=== PATIENT | male | born 1955 | race Caucasian/White ===

== ENCOUNTER → 2016-08-25 | Outpatient (CLI) | payer BC ==
--- NOTE | 2016-08-25 11:43 | ECHOF ---
Referral Reason:Murmur R01.1 MEASUREMENTS -------- HEIGHT: 182.9 cm WEIGHT: 113.4 kg BP: IVSd: 1.0 cm (0.6 - 1.1) LVIDd: 4.5 cm (3.9 - 5.3) LVPWd: 1.1 cm (0.6 - 1.1) IVSs: 1.5 cm LVIDs: 3.1 cm LVPWs: 1.7 cm Ao Diam: 2.8 cm (2.0 - 3.7) AV Cusp: 2.0 cm (1.5 - 2.6) LA Diam: 3.9 cm (2.7 - 3.8) MV EXCURSION: 18.395 mm (> 18.000) MV EF SLOPE: 105 mm/s (70 - 150) EPSS: 0.5 cm MV E Isael: 0.97 m/s MV DecT: 286 ms MV A Isael: 1.16 m/s MV E/A Ratio: 0.84 RAP: 5.00 mmHg RVSP: 15.84 mmHg FINDINGS -------- Sinus rhythm. This was a technically good study. Left ventricular wall thickness is normal. Overall left ventricular systolic function is normal with, an EF between 55 - 60 %. The right ventricle is normal in size and function. The left atrium is normal in size. The right atrium is normal in size. The aortic valve is trileaflet, and appears structurally normal. No aortic stenosis or regurgitation. The mitral valve leaflets are mildly thickened. Mild mitral regurgitation is present. Mild tricuspid regurgitation present. The right ventricular systolic pressure, as measured by Doppler, is 15.84mmHg. Pulmonic valve appears structurally normal. The aortic root, ascending aorta and aortic arch are normal. The pericardium is normal. CONCLUSIONS -------- 1. Sinus rhythm. 2. Mild mitral regurgitation is present. 3. Mild tricuspid regurgitation present. 4. The right ventricular systolic pressure, as measured by Doppler, is 15.84mmHg. 5. Pulmonic valve appears structurally normal. 6. The aortic root, ascending aorta and aortic arch are normal. 7. The pericardium is normal. 8. This was a technically good study. 9. Left ventricular wall thickness is normal. 10. Overall left ventricular systolic function is normal with, an EF between 55 - 60 %. 11. The right ventricle is normal in size and function. 12. The left atrium is normal in size. 13. The right atrium is normal in size. 14. The aortic valve is trileaflet, and appears structurally normal. No aortic stenosis or regurgitation. 15. The mitral valve leaflets are mildly thickened. [facility] ERP ARCHITECT: Chelsea Gallardo RDCS
== END | disposition home or self-care (01) ==
LOC: RADECHMAIN 11:18
PROVIDERS: ATTEND Family Medicine
DX: I08.1 Rheumatic disorders of both mitral and tricuspid valves (principal)
CPT/HCPCS: 93306

== ENCOUNTER → 2018-12-16 | Outpatient (CLI) | payer BC ==
--- NOTE | 2018-12-16 11:41 | CT ---
"EXAMINATION TYPE: CT chest w con DATE OF EXAM: 12/16/2018 COMPARISON: No prior studies at this location. HISTORY: Pneumonia CT DLP: 731 mGycm, Automated exposure control for dose reduction was used. CONTRAST: Performed injected with 100 mL of Isovue 300. TECHNIQUE: Axial images were obtained at 5 mm thick sections. Reconstructed images are reviewed on [employer] computer in the coronal plane. FINDINGS: Left lobe thyroid is enlarged with hypodense areas. This could be evaluated with ultrasound . This is displacing the trachea towards the right. There is a large anterior mediastinal mass just superior to the main pulmonary artery. The mass measu res 7.5 x 6.8 cm in size. This has irregular lobular borders with central hypodensity suspicious for a neoplastic process. Consider lymphoma and thymoma within the differential. Metastatic disease shoul d be considered. There is a markedly enlarged right axillary lymph node measuring 10.0 x 8.9 cm. There is a 1.4 cm lym ph node in the left axillary region. Small pericardial effusion is evident. Small left pleural effusion is present. The ascending aorta diameter at the level of the main pulmonary artery is 3.4 cm. The main pulmonary artery diameter at the bifurcation is 3.[address] sections are obtained through the upper abdomen. Abdomen is essentially unremarkable. IMPRESSIONS: 1. Markedly enlarged right axillary lymph node. Irregular lobulated mass within the anterior mediasti num. Metastatic disease should be considered. Lymphoma should be considered. 2. Small pericardial effusion. 3. Small left pleural effusion. A [place] level critical message alert has been initiated for Bob Mcneill MD via the [employer] 60 | Critical Results System on 12/16/2018 11:38 AM. This message alert has been sent to Bob le MD via the preferences provided by the clinician for the receipt of Radiology Critical Findings. M essage ID [id number]."
[2018-12-16 16:24] LABS: Basophils % (A) 0 %; Eosinophils # (A) 0.1 k/uL (0-0.7); Eosinophils % (A) 1 %; HCT 38.7 % (39.0-53.0); HGB 12.4 gm/dL (13.0-17.5); Lymphocytes # (A) 0.7 k/uL (1.0-4.8); Lymphocytes % (A) 9 %; MCH 28.8 pg (25.0-35.0); MCV 89.8 fL (80.0-100.0); Mean Platelet Volume 7.4; Monocytes # (A) 0.3 k/uL (0-1.0); Monocytes % (A) 4 %; Neutrophils # (A) 7.1 k/uL (1.3-7.7); Neutrophils % (A) 85 %; Platelet Count 365 k/uL (150-450); RBC 4.31 m/uL (4.30-5.90); RDW 13.8 % (11.5-15.5); WBC 8.3 k/uL (3.8-10.6)
[2018-12-16 16:33] LABS: ALT 20 U/L (21-72); AST 35 U/L (17-59); Albumin 3.7 g/dL (3.5-5.0); Alkaline Phosphatase 96 U/L (38-126); Anion Gap 9 mmol/L; Blood Urea Nitrogen 17 mg/dL (9-20); Calcium 9.4 mg/dL (8.4-10.2); Carbon Dioxide 24 mmol/L (22-30); Chloride 107 mmol/L (98-107); Glucose 140 mg/dL (74-99); Potassium 4.1 mmol/L (3.5-5.1); Sodium 140 mmol/L (137-145); Total Bilirubin 0.5 mg/dL (0.2-1.3); Total Protein 6.6 g/dL (6.3-8.2)
[2018-12-16 16:49] LABS: T4, Free (Free Thyroxine) 1.61 ng/dL (0.78-2.19)
== END ==
LOC: RADCTMAIN 07:05
PROVIDERS: ATTEND Family Medicine
DX: R05 Cough (principal); R91.8 Other nonspecific abnormal finding of lung field; R59.0 Localized enlarged lymph nodes; I31.3 Pericardial effusion (noninflammatory)
CPT/HCPCS: 84439; 80053; 84443; 85025; 71260; Q9967

== ENCOUNTER → 2018-12-18 | Outpatient (CLI) | payer BC ==
--- NOTE | 2018-12-20 07:59 | PE ---
EXAMINATION TYPE: PET CT fusion whole body DATE OF EXAM: 12/18/2018 COMPARISON: Chest CT December 16, 2018. HISTORY: Melanoma of back progress study after surgery 2009. TECHNIQUE: Following the intravenous administration of 14.17 mCi of F-18 FDG, whole body images are performed from the top of skull to the bottom of feet. Images are reviewed on the computer in the co margi, axial, and sagittal planes. Reconstructed rotating images are created on independent workstat ion and reviewed on the computer. A noncontrast CT is performed in conjunction with the PET scan. SCAN: Subsequent Scan FINDINGS: MEDIASTINUM MEAN SUV: 0.8 LIVER MEAN SUV: 2.29 HEAD AND NECK: No hypermetabolic soft tissue nodules are identified in the head. There is a large hypermetabolic right supraclavicular mass measuring 4.1 x 3.4 cm at level of thyroid gland axial image 103, max SUV is 12.3s. CHEST, MEDIASTINUM, AND HILAR REGION: There is hypermetabolic right axillary mass measuring 16.7 x 7. 2 cm axial image 129 with max SUV of 15.99. There are multiple mediastinal hypermetabolic masses, largest anterior to main pulmonary artery measu res approximately 7.7 x 6.1 cm axial image 133, max SUV is 19.48. There is hypermetabolic left axillary mass measuring 1.6 x 1.5 cm axial image 130, max SUV is 10.37. There is posterior lower thoracic subcutaneous 1.1 cm hypermetabolic mass axial image 150, max SUV is 9.33. ABDOMEN AND PELVIS: There are multiple areas of abnormal hypermetabolic masses throughout the abdomen and pelvis. One of the larger lesions right lower quadrant abuts bowel measuring 5.4 x 4.6 cm axial image 248, ma x SUV is 19.16. Another lesion for reference in the left upper quadrant measures 4.2 x 3.4 cm axial i mage 215, max SUV is 17.39. There is necrotic lesion with air-fluid level suggesting abscess centrally in the mid to lower abdome n axial image 238 which is contiguous with bowel. Max SUV is 32.49. OSSEOUS STRUCTURES: Osseous metastatic disease is present, there is left femoral intramedullary mid t o distal diaphysis lesion axial image 19 with max SUV of 7.94. EXTREMITIES: Suspicious hypermetabolic focus left elbow level is seen on MIP images. OTHER CT: There is ametabolic but suspicious 5.2 cm left thyroid nodule axial image 103. There is small left pleural effusion. Mild cardiomegaly is present. There is small to borderline mode rate sized pericardial effusion. There is facet arthropathy and the lower lumbar spine. There is multilevel spurring in the spine. There is 1.8 cm partially calcified skin-based lesion anterior left upper leg axial image 21 presumed dermatologic and benign in etiology. IMPRESSION: Diffuse metastatic disease is present. Large suspicious left thyroid nodule. Intra-abdomi nal abscess contiguous with bowel noted. A [place] level critical message alert has been initiated for Boone Chase DO~[id number] via the [employer] Critical Results System on 12/20/2018 7:57 AM. This message alert has been sent to Boone Chase DO~[id number] via the preferences provided by the clinician for the receipt of Radiology a l Findings. Message ID [id number].
== END ==
LOC: RADPETMAIN 13:30
PROVIDERS: ATTEND Internal Medicine Critical Care Medicine
DX: C43.8 Malignant melanoma of overlapping sites of skin (principal); C79.9 Secondary malignant neoplasm of unspecified site
CPT/HCPCS: 78816; A9552

== ENCOUNTER 2018-12-20 07:53 | Day surgery (SDC) | payer BC ==
[2018-12-20 08:52] VITALS: RESP 18; TEMP 98.1
--- NOTE | 2018-12-20 09:24 | US ---
ULTRASOUND GUIDED CORE BIOPSY RIGHT AXILLA MASS: CLINICAL HISTORY: Right axillary mass FINDINGS: The procedure was explained to the patient. The risks, complications, benefits and alternatives were discussed and any questions were answered. Informed consent was obtained. Patient was placed supin e on the ultrasound table and prepped and draped in the usual sterile fashion. Utilizing a 18-gauge core biopsy needle, 3 passes were made into the requested lesion. Patient was stable throughout the procedure. Pathology is pending. All elements of maximal barrier and sterile technique were utilized. IMPRESSION: 1. Successful ultrasound guided core biopsy right axillary mass.
[2018-12-20 10:02] VITALS: BP 124/70; PULSE 69
== END 2018-12-20 09:45 | disposition home or self-care (01) ==
LOC: RADPROMAIN 07:53
PROVIDERS: ATTEND Internal Medicine Critical Care Medicine
DX: C79.2 Secondary malignant neoplasm of skin (principal); C80.1 Malignant (primary) neoplasm, unspecified; I10 Essential (primary) hypertension; Z79.899 Other long term (current) drug therapy; Z87.891 Personal history of nicotine dependence
CPT/HCPCS: 38505; 76942; 88305; 88341; 88342

== ENCOUNTER → 2018-12-29 | Outpatient (CLI) | payer BC ==
--- NOTE | 2018-12-29 18:38 | MR ---
"EXAMINATION TYPE: MR brain wo/w con DATE OF EXAM: 12/29/2018 COMPARISON: PET CT from 11 days ago. HISTORY: Melanoma / headaches TECHNIQUE: Multiplanar, multisequence images of the brain and brainstem is performed without and with IV contras t, utilizing 10 mL intravenous Gadavist . FINDINGS: Diffusion weighted images demonstrate no evidence of a recent infarct or other diffusion ab normality. The ventricular system and cisternal spaces are normal in size and appearance. The brain volume is age appropriate. Post contrast images show several enhancing intraparenchymal masses with surrounding edema. There is right frontal 9 mm subcortical lesion axial image 54 series 604 with surrounding T2 hyperintensity. T here is a larger peripheral 1.8 x 1.5 cm lesion near junction of the frontal parietal and frontotempo ral lobes axial image 45 with local mass effect and surrounding vasogenic edema. There is 1.3 cm cent ral peripheral low centripetal lesion axial image 47 with surrounding vasogenic edema. There are at l east 5 additional smaller lesions present including a right cerebellar lesion noted laterally axial i mage 24. Midline structures demonstrate normal morphology. The craniocervical junction appears within normal limits. The dural venous sinuses appear patent. Mild mucosal thickening involving ethmoid sinuses bi laterally is present. Nasal septum is deviated to right of midline. The globes are intact bilaterally . IMPRESSION: Findings are consistent with metastatic disease given patient's history of malignant nayely noma. Local mass effect at site of metastatic lesions is present. A [place] level critical message alert has been initiated for Sunny Alegria MD via the [employer] 0 | Critical Results System on 12/29/2018 6:35 PM. This message alert has been sent to Sunny Alegria MD via the preferences provided by the clinician for the receipt of Radiology Critical Findings. [facility] ID [id number]."
== END | disposition home or self-care (01) ==
LOC: RADMRIMAIN 14:54
PROVIDERS: ATTEND Internal Medicine Hematology & Oncology
DX: C43.9 Malignant melanoma of skin, unspecified (principal)
CPT/HCPCS: 70553; A9585

== ENCOUNTER → 2019-02-02 | Outpatient (CLI) | payer BC ==
[2019-02-02 17:41] LABS: African American GFR (CKD) >90 (>60 ml/min/1.73 sqM); Blood Urea Nitrogen 17 mg/dL (9-20)
--- NOTE | 2019-02-02 18:47 | CT ---
EXAMINATION TYPE: CT angio chest DATE OF EXAM: 02/02/2019 6:32 PM COMPARISON: 12/16/2018 HISTORY: SOB x 5 weeks. currently being treated for melanoma. CT DLP: 508.3 mGycm Automated exposure control for dose reduction was used. CONTRAST: CTA scan of the thorax is performed with IV Contrast, patient injected with 77cc mL of Isovue 370, pu lmonary embolism protocol. There are 3-D post processed images.. FINDINGS: There is pericardial effusion. I see no filling defects in the pulmonary arteries. Thoracic aorta calli ws no aneurysm or dissection. There are bilateral pleural effusions and larger on the left side. There are large soft tissue masses evident at the right axilla that measure 12.5 cm and in the anteri or mediastinum that measures 8.5 cm. There is 4.5 cm mass involving the right supraclavicular soft ti ssue. There is cystic enlargement of the left thyroid lobe. The cyst measures 5 x 3 cm. There is enlarged l eft axillary lymph node that measures 2.2 cm. The bony thorax is intact. There is 10% anterior wedging of T8 vertebra that is unchanged. There is a 3.5 cm soft tissue mass on the posterior wall of the gastric fundus. There are soft tissue masses anterior to the tail of the pancreas that measure up to 3.2 cm increased compared to old exam . There are enlarged celiac lymph nodes that measure up to 2.7 cm increased compared to old exam. IMPRESSION: No evidence of pulmonary embolism. Large right axillary mass and anterior mediastinal mass are increased compared to old CT scan. Bilat eral pleural effusions increased compared to old exam. Pericardial effusion increased compared to old exam. Left axillary lymph node increased. Multiple upper abdominal masses increased compared to old exam.
== END | disposition home or self-care (01) ==
LOC: RADCTMAIN 16:50
PROVIDERS: ATTEND Internal Medicine Hematology & Oncology
DX: J90 Pleural effusion, not elsewhere classified (principal); R22.30 Localized swelling, mass and lump, unspecified upper limb; I31.3 Pericardial effusion (noninflammatory); R19.00 Intra-abdominal and pelvic swelling, mass and lump, unspecified site; C43.61 Malignant melanoma of right upper limb, including shoulder
CPT/HCPCS: 82565; 84520; 71275; 36415; Q9967

== ENCOUNTER 2019-03-21 19:23 | Inpatient (IN) | payer BC ==
[2019-03-21] MEDS ORDERED: ADENOSINE 3 MG/ML 2 ML VIAL IVP STA (19:39)
--- NOTE | 2019-03-21 19:43 | ED ---
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 Had some supraventricular tachycardia no overt chest pain fevers chills he does have peripheral edema. No other modifying factors at this time MD Complaint: generalized weakness - Related Data Home Medications Medication Instructions Recorded Confirmed Fenofibrate [Lofibra] 160 mg PO DAILY 12/20/18 03/21/19 ALPRAZolam [Xanax] 0.5 mg PO BID PRN 03/21/19 03/21/19 Furosemide [Lasix] 20 mg PO DAILY 03/21/19 03/21/19 Allergies Allergy/AdvReac Type Severity Reaction Status Date / Time No Known Allergies Allergy Verified 03/21/19 19:52 Review of Systems ROS Statement: Those systems with pertinent positive or pertinent negative responses have been documented in the HPI. ROS Other: All systems not noted in ROS Statement are negative. Past Medical History Past Medical History: Hyperlipidemia, Hypertension Additional Past Medical History / Comment(s): stage 4 melanoma History of Any Multi-Drug Resistant Organisms: None Reported Additional Past Surgical History / Comment(s): 2010 - melanoma - 12 inch scar on back. Past Anesthesia/Blood Transfusion Reactions: No Reported Reaction Past Psychological History: No Psychological Hx Reported Smoking Status: Former smoker Past Alcohol Use History: Occasional Past Drug Use History: None Reported - Past Family History Mother Family Medical History: Cancer Additional Family Medical History / Comment(s): brain cancer General Exam - General Exam Comments Initial Comments: This is a well-developed well-nourished awake alert oriented 3 male he does demonstrate marked edema to his extremities Limitations: no limitations General appearance: alert, anxious Head exam: Present: atraumatic, normocephalic, normal inspection Eye exam: Present: normal appearance, PERRL, EOMI. Absent: scleral icterus, conjunctival injection, periorbital swelling ENT exam: Present: normal exam, mucous membranes moist Neck exam: Present: normal inspection. Absent: tenderness, meningismus, lymphadenopathy Respiratory exam: Present: decreased breath sounds. Absent: respiratory distress, wheezes, rales, rhonchi, stridor Cardiovascular Exam: Present: tachycardia. Absent: systolic murmur, diastolic murmur, rubs, gallop, clicks GI/Abdominal exam: Present: soft, normal bowel sounds. Absent: distended, te nderness, guarding, rebound, rigid Extremities exam: Present: full ROM, normal capillary refill, pedal edema (Edema to the arms and legs is a palpable mass over the right clavicle and right axilla consistent with his stated disease). Absent: tenderness, joint swelling, calf tenderness Back exam: Present: normal inspection Neurological exam: Present: alert, oriented X3, CN II-XII intact Psychiatric exam: Present: normal affect, normal mood Skin exam: Present: warm, dry, intact, pallor. Absent: rash Course Vital Signs 03/21/19 03/21/19 03/21/19 19:24 20:05 20:09 Temperature 97.5 F L Pulse Rate 173 H 172 H 176 H Respiratory 18 18 18 Rate Blood Pressure 146/97 149/102 132/94 O2 Sat by Pulse 96 99 97 Oximetry 03/21/19 03/21/19 03/21/19 20:47 21:08 21:55 Temperature Pulse Rate 174 H 176 H 176 H Respiratory 20 20 18 Rate Blood Pressure 141/114 125/90 122/91 O2 Sat by Pulse 99 97 97 Oximetry 03/21/19 03/21/19 22:21 23:17 Temperature Pulse Rate 174 H 169 H Respiratory 20 20 Rate Blood Pressure 129/102 127/93 O2 Sat by Pulse 97 97 Oximetry - Reevaluation(s) Reevaluation #1: 03/21/19 19:56 6 mg of Adenicard was pushed on the patient by nursing staff I was present during this period patient's heart rate did slow down enough to identify the rhythm is a atrial flutter. Patient had no symptoms during the process. I did discuss this also with the patient's was present. Patient will be started on IV Cardizem. Reevaluation #2: 03/21/19 22:19 H and thus far is filled and sustaining a lower heart rate IV digoxin is given. I did discuss case Dr. Alas the patient will be admitted with cardiology consultation Reevaluation #3: 03/21/19 23:17 Patient is not responding quickly to the initial medication digoxin was given there does seem to be some trending downward in the heart rate. EKG Findings - EKG Results: EKG: interpreted by CHRISTIANOD (A supraventricular tachycardia which is appear to be consistent with A. fib or a flutter 0.73 with a heart rate QRS 74 QT since QTC 20/[address] configuration) Medical Decision Making - Medical Decision Making I did discuss [employer] the patient has as well as Dr. Alas the patient will be admitted with cardiology consultation. Atrial flutter - Lab Data Result diagrams: 03/21/19 19:39 03/21/19 19:39 Lab Results 03/21/19 03/21/19 03/21/19 Range/Units 19:39 19:39 19:39 WBC 5.1 (3.8-10.6) k/uL RBC 4.67 (4.30-5.90) m/uL Hgb 12.7 L (13.0-17.5) gm/dL Hct 41.1 (39.0-53.0) % MCV 87.9 (80.0-100.0) fL MCH 27.1 (25.0-35.0) pg MCHC 30.8 L (31.0-37.0) g/dL RDW 18.8 H (11.5-15.5) % Plt Count 185 (150-450) k/uL Neutrophils % 89 % Lymphocytes % 4 % Monocytes % 5 % Eosinophils % 0 % Basophils % 0 % Neutrophils # 4.6 (1.3-7.7) k/uL Lymphocytes # 0.2 L (1.0-4.8) k/uL Monocytes # 0.3 (0-1.0) k/uL Eosinophils # 0.0 (0-0.7) k/uL Basophils # 0.0 (0-0.2) k/uL Hypochromasia Moderate Anisocytosis Slight PT (9.0-12.0) sec INR (<1.2) APTT (22.0-30.0) sec Sodium 139 (137-145) mmol/L Potassium 4.3 (3.5-5.1) mmol/L Chloride 105 (98-107) mmol/L Carbon Dioxide 18 L (22-30) mmol/L Anion Gap 16 mmol/L BUN 30 H (9-20) mg/dL Creatinine 1.11 (0.66-1.25) mg/dL Est GFR (CKD-EPI)AfAm 81 (>60 ml/min/1.73 sqM) Est GFR (CKD-EPI)NonAf 70 (>60 ml/min/1.73 sqM) Glucose 104 H (74-99) mg/dL Calcium 8.4 (8.4-10.2) mg/dL Magnesium 1.8 (1.6-2.3) mg/dL Total Bilirubin 0.5 (0.2-1.3) mg/dL AST 43 (17-59) U/L ALT 22 (21-72) U/L Alkaline Phosphatase 190 H (38-126) U/L Creatine Kinase 42 L (55-170) U/L Troponin I (0.000-0.034) ng/mL NT-Pro-B Natriuret Pep 25485 pg/mL Total Protein 6.3 (6.3-8.2) g/dL Albumin 2.9 L (3.5-5.0) g/dL 03/21/19 03/21/19 Range/Units 19:39 19:39 WBC (3.8-10.6) k/uL RBC (4.30-5.90) m/uL Hgb (13.0-17.5) gm/dL Hct (39.0-53.0) % MCV (80.0-100.0) fL MCH (25.0-35.0) pg MCHC (31.0-37.0) g/dL RDW (11.5-15.5) % Plt Count (150-450) k/uL Neutrophils % % Lymphocytes % % Monocytes % % Eosinophils % % Basophils % % Neutrophils # (1.3-7.7) k/uL Lymphocytes # (1.0-4.8) k/uL Monocytes # (0-1.0) k/uL Eosinophils # (0-0.7) k/uL Basophils # (0-0.2) k/uL Hypochromasia Anisocytosis PT 11.1 (9.0-12.0) sec INR 1.1 (<1.2) APTT 18.1 L (22.0-30.0) sec Sodium (137-145) mmol/L Potassium (3.5-5.1) mmol/L Chloride (98-107) mmol/L Carbon Dioxide (22-30) mmol/L Anion Gap mmol/L BUN (9-20) mg/dL Creatinine (0.66-1.25) mg/dL Est GFR (CKD-EPI)AfAm (>60 ml/min/1.73 sqM) Est GFR (CKD-EPI)NonAf (>60 ml/min/1.73 sqM) Glucose (74-99) mg/dL Calcium (8.4-10.2) mg/dL Magnesium (1.6-2.3) mg/dL Total Bilirubin (0.2-1.3) mg/dL AST (17-59) U/L ALT (21-72) U/L Alkaline Phosphatase (38-126) U/L Creatine Kinase (55-170) U/L Troponin I 0.031 (0.000-0.034) ng/mL NT-Pro-B Natriuret Pep pg/mL Total Protein (6.3-8.2) g/dL Albumin (3.5-5.0) g/dL - EKG Data -: EKG Interpreted by Me - Radiology Data Radiology results: report reviewed (I did review the imaging there is evidence of bilateral pleural effusions), image reviewed Critical Care Time Critical Care Time: Yes (49 minutes ) Critical Care Time: Is includes initial presentation with history physical labs x-rays discussed with paramedics discussed with patient and his on multiple occasions multiple reevaluation the patient responsive therapy discussion with the main physician admission orders documentation the above Disposition Clinical Impression: Atrial flutter with rapid ventricular response, Pleural cavity effusion, Melanoma, CHF (congestive heart failure) Disposition: ADMITTED IP TO THIS [facility] Condition: Serious Referrals: None,Stated [REFERRING] - 1-2 days
[2019-03-21] MEDS ORDERED: DILTIAZEM DRIP BOLUS FROM BAG 1 MG SOLN IV ONE ×2 (19:54→20:49)
[2019-03-21] MEDS: DILTIAZEM 125 MG in SODIUM CHLORIDE 0.9% 100 ML IV SCH ×2 (20:07→20:52)
[2019-03-21 20:12] LABS: Albumin 2.9 g/dL (3.5-5.0); Calcium 8.4 mg/dL (8.4-10.2); Magnesium 1.8 mg/dL (1.6-2.3); Potassium 4.3 mmol/L (3.5-5.1); Total Bilirubin 0.5 mg/dL (0.2-1.3); Total Protein 6.3 g/dL (6.3-8.2)
[2019-03-21 20:15] LABS: Anisocytosis Slight; Basophils % (A) 0 %; Eosinophils % (A) 0 %; HCT 41.1 % (39.0-53.0); HGB 12.7 gm/dL (13.0-17.5); Hypochromasia Moderate; Lymphocytes # (A) 0.2 k/uL (1.0-4.8); Lymphocytes % (A) 4 %; MCH 27.1 pg (25.0-35.0); MCHC 30.8 g/dL (31.0-37.0); MCV 87.9 fL (80.0-100.0); Mean Platelet Volume 7.5; Monocytes # (A) 0.3 k/uL (0-1.0); Monocytes % (A) 5 %; Neutrophils # (A) 4.6 k/uL (1.3-7.7); Neutrophils % (A) 89 %; Platelet Count 185 k/uL (150-450); RBC 4.67 m/uL (4.30-5.90); RDW 18.8 % (11.5-15.5); WBC 5.1 k/uL (3.8-10.6)
[2019-03-21 20:20] LABS: INR 1.1 (<1.2); Prothrombin Time 11.1 sec (9.0-12.0)
[2019-03-21 20:21] LABS: Partial Thromboplastin Time 18.1 sec (22.0-30.0)
[2019-03-21] MEDS ORDERED: DILTIAZEM 125 MG in SODIUM CHLORIDE 0.9% 100 ML IV SCH (21:00)
[2019-03-21] MEDS ORDERED: DILTIAZEM DRIP BOLUS FROM BAG 1 MG SOLN IV STA (21:10)
[2019-03-21] MEDS ORDERED: MAGNESIUM SULFATE-D5W PMX 1 GM in DEXTROSE/WATER 1 100ML.BAG IVPB ONE (21:13)
--- NOTE | 2019-03-21 21:52 | XR ---
EXAMINATION: XR chest 2V DATE AND TIME: 03/21/2019 8:37 PM CLINICAL INDICATION: PHH; dysrhythmia TECHNIQUE: Departmental protocol COMPARISON: None FINDINGS: PLEURAL SPACES: The pleural spaces show evidence of prominent pleural effusions bilaterally, greater on the left. LUNGS: There is associated airlessness within the lung bases, which can be consistent with atelectasi s but concurrent bronchopneumonia will require clinical exclusion. The mid and upper lungs are clear and well-expanded bilaterally, particularly on the right. No evidence of pulmonary edema. MEDIASTINUM: The cardiac silhouette is moderate-markedly enlarged. OTHER: The skeletal structures and soft tissues are negative for acute findings. IMPRESSION: Bibasilar airlessness and pleural effusions.
[2019-03-21] MEDS ORDERED: DIGOXIN 250 MCG/ML 2 ML AMP IVP ONE ×2 (21:56→22:43)
[2019-03-21] MEDS ORDERED: NALOXONE 0.4 MG/ML 1 ML VIAL IV PRN (23:24)
[2019-03-21] MEDS ORDERED: HEPARIN SODIUM,PORCINE 5,000 UNIT/ML 1 ML VIAL IV ONE (23:27)
[2019-03-21] MEDS ORDERED: HEPARIN SODIUM,PORCINE 5,000 UNIT/ML 1 ML VIAL IV PRN (23:27)
[2019-03-21] MEDS ORDERED: HEPARIN SOD,PORK IN 0.45% NACL 25,000 UNIT in 0.45% NACL 1 250ML.BAG IV SCH (23:30)
[2019-03-22] MEDS ORDERED: METOPROLOL TARTRATE 5 MG/5 ML VIAL IVP STA (00:18)
[2019-03-22] MEDS: FUROSEMIDE 10 MG/ML 4 ML VIAL IV SCH ×4 (00:34→22:04)
[2019-03-22 06:18] LABS: Anisocytosis Slight; Basophils % (A) 0 %; Eosinophils % (A) 1 %; HCT 37.4 % (39.0-53.0); HGB 11.2 gm/dL (13.0-17.5); Hypochromasia Marked; Lymphocytes # (A) 0.3 k/uL (1.0-4.8); Lymphocytes % (A) 7 %; MCH 26.4 pg (25.0-35.0); MCV 88.1 fL (80.0-100.0); Mean Platelet Volume 7.1; Monocytes # (A) 0.3 k/uL (0-1.0); Monocytes % (A) 6 %; Neutrophils # (A) 3.8 k/uL (1.3-7.7); Neutrophils % (A) 85 %; Platelet Count 183 k/uL (150-450); RBC 4.24 m/uL (4.30-5.90); RDW 18.2 % (11.5-15.5); WBC 4.5 k/uL (3.8-10.6)
[2019-03-22] MEDS: FENOFIBRATE 160 MG TAB PO SCH (08:07)
[2019-03-22] MEDS ORDERED: DEXTROSE 5% IN WATER 100 ML with AMIODARONE 150 MG IV ONE (08:54)
[2019-03-22] MEDS ORDERED: AMIODARONE 360 MG in DEXTROSE 5% IN WATER 200 ML IV ONE ×2 (08:54)
[2019-03-22] MEDS ORDERED: FUROSEMIDE 20 MG TAB PO SCH (09:00)
[2019-03-22] MEDS ORDERED: ATENOLOL 50 MG TAB PO SCH (09:00)
--- NOTE | 2019-03-22 09:03 | P.CRDCN ---
History of Present Illness Consult date: 03/22/19 Requesting physician: Derrek Alas Jr Consult reason: atrial flutter Chief complaint: Shortness of breath, weakness, bilateral lower extremity edema History of present illness: This is a 64-year-old gentleman with history of hypertension, hyperlipidemia, nondiabetic, nonsmoker, history of melanoma, diagnosed in November, presents to the hospital with symptoms of progressive weakness with associated shortness of breath, lower extremity edema, PND and orthopnea. Patient also states that over the past one month he's been noticing his heart rate intermittently to go fast and irregular. Blood pressure on arrival here 146/96, heart rate 170, 96% on room air. Blood pressure this morning 114/70 with a heart rate of 90, 99% on 2 L of oxygen. White blood cell count 4.5, hemoglobin 11.2, platelet count 183. Sodium 139, potassium 4.3, BUN 30, creatinine 1.1. Magnesium 1.8. Troponin 0.031, BNP 11,900. Chest x-ray on presentation here showed bilateral pleural effusions. EKG on arrival here showed atrial flutter with a rapid ventricular response. Patient was initially given 6 mg of adenosine in the emergency room, then subsequently given Lanoxin and initiated on IV Cardizem as well as IV heparin, continues to be in atrial flutter this morning, his heart rate is in the 90 range. At the time of my examination this morning, patient is sitting up at the bedside, he still feel somewhat short of breath and quite weak. He was initiated on IV Lasix in the emergency room and is also on oral diuretics. Past Medical History Past Medical History: Hyperlipidemia, Hypertension Additional Past Medical History / Comment(s): stage 4 melanoma History of Any Multi-Drug Resistant Organisms: None Reported Additional Past Surgical History / Comment(s): 2009 - melanoma - 12 inch scar on back. Past Anesthesia/Blood Transfusion Reactions: No Reported Reaction Past Psychological History: No Psychological Hx Reported Smoking Status: Never smoker Past Alcohol Use History: Occasional Additional Past Alcohol Use History / Comment(s): quit 1979 Past Drug Use History: None Reported - Past Family History Mother Family Medical History: Cancer Additional Family Medical History / Comment(s): brain cancer Medications and Allergies Home Medications Medication Instructions Recorded Confirmed Type Fenofibrate [Lofibra] 160 mg PO DAILY 12/20/18 03/21/19 History ALPRAZolam [Xanax] 0.5 mg PO BID PRN 03/21/19 03/21/19 History Furosemide [Lasix] 20 mg PO DAILY 03/21/19 03/21/19 History Allergies Allergy/AdvReac Type Severity Reaction Status Date / Time No Known Allergies Allergy Verified 03/21/19 19:52 Physical Exam Vitals: Vital Signs Temp Pulse Pulse Resp BP BP Pulse Ox 03/22/19 08:00 98.1 F 91 20 113/70 99 03/22/19 05:48 150/75 03/22/19 04:00 98.5 F 100 20 106/69 95 03/22/19 01:42 97.5 F L 131 H 20 104/88 96 03/22/19 00:42 137 H 03/22/19 00:40 165 H 20 139/87 96 03/22/19 00:35 162 H 18 139/89 97 03/21/19 23:58 163 H 20 125/97 97 03/21/19 23:57 98 F 150 H 20 145/80 96 03/21/19 23:17 169 H 20 127/93 97 03/21/19 22:21 174 H 20 129/102 97 03/21/19 21:55 176 H 18 122/91 97 03/21/19 21:08 176 H 20 125/90 97 03/21/19 20:47 174 H 20 141/114 99 03/21/19 20:09 176 H 18 132/94 97 03/21/19 20:05 172 H 18 149/102 99 03/21/19 19:24 97.5 F L 173 H 18 146/97 96 Intake and Output 03/21/19 03/22/19 03/22/19 22:59 06:59 14:59 Intake Total 3.75 66.513 Balance 3.75 66.513 Intake: Intake, IV Titration 3.75 66.513 Amount Diltiazem 125 mg In 3.75 Sodium Chloride 0.9% 100 ml @ 5 MG/HR 5 mls/hr IV .Q24H CASEY Rx#:[id number] Heparin Sod,Pork in 0.45% 66.513 NaCl 25,000 unit In 0.45 % NaCl 1 250ml.bag @ 9.8 UNITS/KG/HR 10.002 mls/hr IV .Q24H CASEY Rx#: [id number] Other: Voiding Method Bedside Commode Bedside Commode # Voids 1 Weight 102.058 kg 98.5 kg PHYSICAL EXAMINATION: GENERAL: 64-year-old gentleman in no acute distress at the time of my examination HEENT: Head is atraumatic, normocephalic. Pupils equal, round. Sclera anicteric. Conjunctiva are clear. Mucous membranes of the mouth are moist. Neck is supple. There is elevated jugular venous pressure. No carotid bruit is heard. HEART EXAMINATION: S1 and S2 irregularly irregular a systolic murmur is heard CHEST EXAMINATION: Lungs reveal diminished air entry bilaterally, left greater than right ABDOMEN: Soft, nontender. Bowel sounds are heard. No organomegaly noted. EXTREMITIES: 2+ peripheral pulses with 3+ evidence of peripheral edema . NEUROLOGIC patient is awake, alert and oriented 3 . . Results 03/22/19 05:36 03/21/19 19:39 Cardiac Enzymes 03/21/19 03/21/19 Range/Units 19:39 19:39 AST 43 (17-59) U/L Troponin I 0.031 (0.000-0.034) ng/mL Coagulation 03/21/19 03/22/19 Range/Units 19:39 05:36 PT 11.1 (9.0-12.0) sec APTT 18.1 L 33.3 H (22.0-30.0) sec CBC 03/21/19 03/22/19 Range/Units 19:39 05:36 WBC 5.1 4.5 (3.8-10.6) k/uL RBC 4.67 4.24 L (4.30-5.90) m/uL Hgb 12.7 L 11.2 L (13.0-17.5) gm/dL Hct 41.1 37.4 L (39.0-53.0) % Plt Count 185 183 (150-450) k/uL Comprehensive Metabolic Panel 03/21/19 Range/Units 19:39 Sodium 139 (137-145) mmol/L Potassium 4.3 (3.5-5.1) mmol/L Chloride 105 (98-107) mmol/L Carbon Dioxide 18 L (22-30) mmol/L BUN 30 H (9-20) mg/dL Creatinine 1.11 (0.66-1.25) mg/dL Glucose 104 H (74-99) mg/dL Calcium 8.4 (8.4-10.2) mg/dL AST 43 (17-59) U/L ALT 22 (21-72) U/L Alkaline Phosphatase 190 H (38-126) U/L Total Protein 6.3 (6.3-8.2) g/dL Albumin 2.9 L (3.5-5.0) g/dL Current Medications Generic Name Dose Route Start Last Admin Trade Name Freq PRN Reason Stop Dose Admin Alprazolam 0.5 mg 03/21/19 23:27 Xanax PO BID PRN Anxiety Atenolol 50 mg 03/22/19 09:00 03/22/19 05:49 Tenormin PO 50 mg BID CASEY Administration Fenofibrate 160 mg 03/22/19 09:00 03/22/19 08:07 Lofibra PO 160 mg DAILY CASEY Administration Furosemide 40 mg 03/22/19 00:00 03/22/19 08:07 Lasix IV 40 mg Q8HR CASEY Administration Furosemide 20 mg 03/22/19 09:00 03/22/19 08:08 Lasix PO 20 mg DAILY CASEY Administration Heparin Sodium (Porcine) 0 unit 03/21/19 23:27 Heparin IV PER PROTOCOL PRN Low PTT Protocol Diltiazem HCl 125 mg/ Sodium 125 mls @ 10 mls/hr 03/21/19 21:00 03/21/19 21:08 Chloride IV 10 mg/hr .[id number] CASEY 10 mls/hr Administration 10 MG/HR Heparin Sodium/Sodium Chloride 250 mls @ 10.002 mls/hr 03/21/19 23:30 03/22/19 06:36 25,000 unit/ Sodium Chloride IV 12.8 units/kg/hr .Q24H CASEY 13.063 mls/hr Titration Protocol 9.8 UNITS/KG/HR Naloxone HCl 0.2 mg 03/21/19 23:24 Narcan IV Q2M PRN Opioid Reversal Intake and Output 03/21/19 03/22/19 03/22/19 22:59 06:59 14:59 Intake Total 3.75 66.513 Balance 3.75 66.513 Intake: Intake, IV Titration 3.75 66.513 Amount Diltiazem 125 mg In 3.75 Sodium Chloride 0.9% 100 ml @ 5 MG/HR 5 mls/hr IV .Q24H CASEY Rx#:[id number] Heparin Sod,Pork in 0.45% 66.513 NaCl 25,000 unit In 0.45 % NaCl 1 250ml.bag @ 9.8 UNITS/KG/HR 10.002 mls/hr IV .Q24H CASEY Rx#: [id number] Other: Voiding Method Bedside Commode Bedside Commode # Voids 1 Weight 102.058 kg 98.5 kg 03/22/19 05:36 03/21/19 19:39 EKG Interpretations (text) EKG on presentation here showed atrial flutter with rapid ventricular response Assessment and Plan Plan: Assessment and plan #1 typical atrial flutter with rapid ventricular response #2 congestive heart failure, LV function unknown #3 myeloma, stage IV, diagnosed in November #4 hypertension #5 hyperlipidemia Plan We will obtain an echocardiogram with Doppler study. Continue IV Lasix, monitoring intake and output along with daily weights and daily lytes BUN and creatinine. His continue the atenolol and put the patient on metoprolol succina te, we will also discontinue the IV Cardizem and initiate amiodarone. The patient has been educated regarding the importance of anticoagulation for stroke prevention, he is currently on IV heparin we will look into coverage for Eliquis. Further recommendations to follow. DNP note has been reviewed, I agree with a documented findings and plan of care. Patient was seen and examined.
[2019-03-22] MEDS: METOPROLOL SUCCINATE (ER) 50 MG TAB.ER.24H PO SCH (10:20)
--- NOTE | 2019-03-22 11:13 | P.HPIM ---
History of Present Illness H&P Date: 03/22/19 Chief Complaint: Increased weakness with dyspnea This is a 64-year-old gentleman recently diagnosed with stage IV melanoma of clavicle, right axilla on immunotherapy over the last 3 months, hypertension, hyperlipidemia presented to the ER with complaints of worsening weakness accompanied by increasing shortness of breath and complaints of irregular heartbeat. About a week ago was prescribed a walker. Also complains of right swollen hand weeping 1 week with fluctuating spasms-denies trauma and bilateral lower extremity edema. Reports weakness initially started after beginning on immunotherapy. Denies chest pain, palpitations. Denies lightheadedness, dizziness or syncope . No focal deficits. Denies fever or chills .EKG reported atrial flutter with RVR, received adenosine, digoxin with nonspecific ST configuration and placed on IV Cardizem and heparin drips. Chest x-ray reporting by basilar atelectasis, possible bronchopneumonia, prominent pleural effusions bilaterally, greater on the left. BNP 48667. Tachypneic, maintaining O2 sats in the high 90s on 2 L nasal cannula. Afebrile, normal WBC. Cardiology and oncology consulted. Review of Systems ROS Statement: Those systems with pertinent positive or pertinent negative responses have been documented in the HPI. ROS Other: All systems not noted in ROS Statement are negative. Past Medical History Past Medical History: Hyperlipidemia, Hypertension Additional Past Medical History / Comment(s): stage 4 melanoma History of Any Multi-Drug Resistant Organisms: None Reported Additional Past Surgical History / Comment(s): 2009 - melanoma - 12 inch scar on back. Past Anesthesia/Blood Transfusion Reactions: No Reported Reaction Past Psychological History: No Psychological Hx Reported Smoking Status: Never smoker Past Alcohol Use History: Occasional Additional Past Alcohol Use History / Comment(s): quit 1979 Past Drug Use History: None Reported - Past Family History Mother Family Medical History: Cancer Additional Family Medical History / Comment(s): brain cancer Medications and Allergies Home Medications Medication Instructions Recorded Confirmed Type Fenofibrate [Lofibra] 160 mg PO DAILY 12/20/18 03/21/19 History ALPRAZolam [Xanax] 0.5 mg PO BID PRN 03/21/19 03/21/19 History Furosemide [Lasix] 20 mg PO DAILY 03/21/19 03/21/19 History Allergies Allergy/AdvReac Type Severity Reaction Status Date / Time No Known Allergies Allergy Verified 03/21/19 19:52 Physical Exam Vitals: Vital Signs Temp Pulse Pulse Resp BP BP Pulse Ox 03/22/19 08:00 98.1 F 91 20 113/70 99 03/22/19 05:48 150/75 03/22/19 04:00 98.5 F 100 20 106/69 95 03/22/19 01:42 97.5 F L 131 H 20 104/88 96 03/22/19 00:42 137 H 03/22/19 00:40 165 H 20 139/87 96 03/22/19 00:35 162 H 18 139/89 97 03/21/19 23:58 163 H 20 125/97 97 03/21/19 23:57 98 F 150 H 20 145/80 96 03/21/19 23:17 169 H 20 127/93 97 03/21/19 22:21 174 H 20 129/102 97 03/21/19 21:55 176 H 18 122/91 97 03/21/19 21:08 176 H 20 125/90 97 03/21/19 20:47 174 H 20 141/114 99 03/21/19 20:09 176 H 18 132/94 97 03/21/19 20:05 172 H 18 149/102 99 03/21/19 19:24 97.5 F L 173 H 18 146/97 96 Intake and Output 03/21/19 03/22/19 03/22/19 22:59 06:59 14:59 Intake Total 3.75 66.513 360 Balance 3.75 66.513 360 Intake: Intake, IV Titration 3.75 66.513 Amount Diltiazem 125 mg In 3.75 Sodium Chloride 0.9% 100 ml @ 5 MG/HR 5 mls/hr IV .Q24H [facility] Rx#:[id number] Heparin Sod,Pork in 0.45% 66.513 NaCl 25,000 unit In 0.45 % NaCl 1 250ml.bag @ 9.8 UNITS/KG/HR 10.002 mls/hr IV .Q24H CASEY Rx#: [id number] Oral 360 Other: Voiding Method Bedside Commode Bedside Commode # Voids 1 1 # Bowel Movements 1 Weight 102.058 kg 98.5 kg PHYSICAL EXAM: VITAL SIGNS: As above GENERAL: Sitting up in bed, no acute distress, respiratory effort increased HEENT: Conjunctivae normal. eyes normal. NECK: No JVD. No thyroid enlargement,no lymphadenopathy CARDIOVASCULAR: S1, S2, irregular, positive systolic murmur RESPIRATION: Breath sounds diminished in the bases, greater on the left. No rhonchi or crackles. ABDOMEN: Soft, nontender . No guarding. no masses palpable. No ascites, No hepatosplenomegaly.Bowel sounds heard. EXTREMITIES: Bilateral upper and lower extremity edema, PSYCHIATRY: Alert and oriented X3, mood and affect normal. NERVOUS SYSTEM: Cranial N 2-12 grossly normal. Moves all 4 limbs. Diffuse weakness No focal deficits. Strength and sensation grossly intact.. Skin: No rash, right clavicle/right axilla palpable mass. Right hand weeping. Joints: No active swelling. No inflammation. Lymphatic system. No LN groin. Results CBC & Chem 7: 03/22/19 05:36 03/21/19 19:39 Labs: Abnormal Lab Results - Last 24 Hours (Table) 03/21/19 03/21/19 03/21/19 Range/Units 19:39 19:39 19:39 RBC (4.30-5.90) m/uL Hgb 12.7 L (13.0-17.5) gm/dL Hct (39.0-53.0) % MCHC 30.8 L (31.0-37.0) g/dL RDW 18.8 H (11.5-15.5) % Lymphocytes # 0.2 L (1.0-4.8) k/uL APTT 18.1 L (22.0-30.0) sec Carbon Dioxide 18 L (22-30) mmol/L BUN 30 H (9-20) mg/dL Glucose 104 H (74-99) mg/dL Alkaline Phosphatase 190 H (38-126) U/L Creatine Kinase 42 L (55-170) U/L Albumin 2.9 L (3.5-5.0) g/dL 03/22/19 03/22/19 Range/Units 05:36 05:36 RBC 4.24 L (4.30-5.90) m/uL Hgb 11.2 L (13.0-17.5) gm/dL Hct 37.4 L (39.0-53.0) % MCHC 30.0 L (31.0-37.0) g/dL RDW 18.2 H (11.5-15.5) % Lymphocytes # 0.3 L (1.0-4.8) k/uL APTT 33.3 H (22.0-30.0) sec Carbon Dioxide (22-30) mmol/L BUN (9-20) mg/dL Glucose (74-99) mg/dL Alkaline Phosphatase (38-126) U/L Creatine Kinase (55-170) U/L Albumin (3.5-5.0) g/dL Thrombosis Risk Factor Assmnt - Choose All That Apply Any of the Below Risk Factors Present?: Yes Each Factor Represents 1 point: Obesity (BMI >25) Other Risk Factors: Yes Each Risk Factor Represents 2 Points: Age 61-74 years Thrombosis Risk Factor Assessment Total Risk Factor Score: 3 Thrombosis Risk Factor Assessment Level: Moderate Risk Assessment and Plan Assessment: Atrial flutter with RVR -Acute CHF exacerbation, EF currently unknown, echo pending -Bilateral pleural effusions, greater on the left -Bibasilar atelectasis, possible bronchopneumonia -Generalized weakness, gait dysfunction-now using a walker -Recently diagnosed melanoma stage IV, on immunotherapy -Hypertension -Hyperlipidemia -Hypoalbuminemia Plan: Continue current medication regime , beta pee, monitoring and symptomatic treatment. Evaluated by cardiology, Cardizem drip converted to amiodarone drip. Close monitoring of LFTs, alk phos currently 190. Anticoagulated on heparin drip with case management verifying outpatient coverage for Eliquis. Diuresing on IV push Lasix. Chest ultrasound ordered for bilateral pleural effusions with pulmonary consulted. Oncology consult in place with recommendations pending. PT/OT.Home meds have been reviewed and resumed. GI and DVT prophylaxis in place. Close monitoring of renal function, electro lytes with repeat labs ordered for a.m. ensure supplements ordered .Further recommendations to follow. Prognosis guarded given multiple complex medical issues. The impression and plan of care has been dictated as directed. : I performed a history and examination of this patient, discussed the same with the dictator. I agree with the dictator's note ,documented as a scribe. Any additional findings or plans will be noted. Time taken: 35 minutes
[2019-03-22] MEDS: PANTOPRAZOLE 40 MG/10 ML VIAL IVP SCH (11:57)
--- NOTE | 2019-03-22 12:35 | CONS ---
CONSULTATION PULMONARY/CRITICAL CARE CONSULTATION: DATE OF CONSULTATION: March 22, 2019. This is a 64-year-old male who presents to the emergency room by EMS with increasing weakness, shortness of breath and rapid heartbeat. The patient was found to have SVT. The patient was seen in the emergency room and placed on IV heparin and amiodarone at 1 mg/minute. An IV was started and the patient is receiving nasal O2. I was asked to see the patient because of shortness of breath and some small pleural effusions. The patient looks relatively comfortable currently. He is sitting in bed. He has got some nasal O2 on at 2 L. He is receiving his IV heparin and his IV amiodarone. He is currently back in sinus rhythm. His heart rate is about 70 beats per minute. He denies any chest pain or chest discomfort. He does admit to some palpitations and rapid heartbeat. No nausea or vomiting. No cough, wheezing, or phlegm production. No GI complaints such as nausea, vomiting or diarrhea. No complaints as well. HOME MEDICATIONS: His home medications include fenofibrate, Xanax, and Lasix. ALLERGIES: Allergies are denied. MEDICAL HISTORY: His medical history include hypertension, hyperlipidemia, and stage IV melanoma. SURGICAL HISTORY: Surgical history includes melanoma surgery back in 2009. He denies other surgical procedures. SOCIAL HISTORY: Social history is positive for 7 years of tobacco use between 1967 and 1974. He smoked less than a pack a day. He admits to occasional alcohol use. No illicit drug use. FAMILY HISTORY: Family history is positive for mother with brain cancer. The rest of his family members were relatively healthy. REVIEW OF SYSTEMS: CONSTITUTIONAL: Weakness. NEUROLOGIC: Negative. HEENT: Negative. CARDIOVASCULAR: Rapid heartbeat, palpitations. PULMONARY: Shortness of breath. GI: Negative. : Negative. RHEUMATOLOGIC: Negative. IMMUNOLOGIC: Negative. ENDOCRINOLOGIC: Negative. DERMATOLOGIC: Negative. PHYSICAL EXAMINATION: VITAL SIGNS: Current vital signs are reviewed. Temperature 98.1, heart rate 90, respiratory rate 16, blood pressure 100/62, mean 74, saturations are 99% on 2 L. Appears in no acute distress. No respiratory distress. HEENT: Examination is grossly unremarkable. Mucous membranes are moist. Nasal O2 noted. NECK: Supple. Full range of motion. No adenopathy or thyromegaly. Neck veins are flat. CARDIOVASCULAR: Examination reveals regular rhythm and rate. S1, S2 normal. No S3, S4, or murmur. Heart rate about 70 beats per minute. He is back in sinus rhythm. LUNGS: Reveal mostly clear breath sounds. A few scattered bibasilar crackles. No rhonchi or wheezes. Breath sounds equal bilaterally. ABDOMEN: Soft. Bowel sounds are heard. EXTREMITIES: Are intact. There is some swelling of the right upper extremity. Right hand is wrapped. The lower extremity shows some very mild edema. SKIN: Is without rash. NEUROLOGIC: Examination is brief but nonfocal. LABORATORY DATA: Laboratory data is reviewed. His white count 4.5, hemoglobin 9.2, hematocrit 37.4, platelet count 183,000. PT, INR, PTT normal. Sodium, potassium, chloride normal. CO2 is 18. BUN 30, creatinine 1.11. Anion gap is 16. Glucose 104. Alkaline phosphatase 190. Creatine kinase is 42. Albumin 2.9. TSH 2.730. N terminal proBNP 11,900. X-RAY: Chest x-ray shows some small bilateral pleural effusions. There is some bibasilar atelectasis. No radha pulmonary edema. No infiltrates. No mass. Chest CT shows evidence of bilateral pleural effusions, left greater than right. MEDICATIONS: Medications are reviewed. Currently, he is on medications are previously mentioned. He is on Lasix 40 q.8. ASSESSMENT: 1. Supraventricular tachycardia with mild fluid overload and small to moderate bilateral pleural effusions. 2. History of hypertension. 3. History of hyperlipidemia. 4. History of melanoma. 5. No history of intrinsic pulmonary disease. PLAN: The patient is being treated right now with IV heparin and amiodarone. He is also receiving Lasix 40 mg IV push. We will repeat chest x-ray in the morning. Additional recommendations and suggestions are forthcoming. Hopefully they will be able to diurese these effusions away. They are relatively small and the patient is not having much in the way of respiratory distress. If push comes to shove, thoracentesis might be warranted. Additional recommendations and suggestions are forthcoming. Prognosis is guarded. MMODL / IJN: [id number] / MTDD
--- NOTE | 2019-03-22 13:05 | US ---
EXAMINATION TYPE: US chest DATE OF EXAM: 03/22/2019 COMPARISON: NONE CLINICAL HISTORY: bilateral pl effusions. Pleural effusions TECHNIQUE: Targeted ultrasound of the posterior lower bilateral hemithoraces EXAM MEASUREMENTS: Right Pleural Effusion pocket size: 7.4 cm Right skin surface to fluid distance: 3.3 cm Left Pleural Effusion pocket size: 10.0 cm Left skin surface to fluid distance: 4.2 cm Right side marked for possible thoracentesis outside the dept. Left side marked for possible thoracentesis outside the dept. Pulmonologists are able to review the images in the patient?s EMR. IMPRESSIONS: Bilateral pleural effusions, greater to the left measuring 7.4 cm on the right and 10 cm on the left.
--- NOTE | 2019-03-22 13:35 | CT ---
CT CHEST FOR PULMONARY EMBOLISM. EXAMINATION TYPE: CT angio chest DATE OF EXAM: 03/22/2019 INDICATION: Rule out PE, arrythmia. Known melanoma and axillary mass. CT DLP: 574.6 mGycm, Automated exposure control for dose reduction was used. CONTRAST: Patient injected with 100 mL of Isovue 370. COMPARISON: 02/02/2019 TECHNIQUE: CT of the chest is performed on a spiral scan at 2 mm thick sections. Study is performed with intravenous contrast timed for evaluation for pulmonary embolism. This will limit additional po rtions of the evaluation. 3-D MIP images reconstructed by the technologist are reviewed on the compu ter in the coronal and sagittal planes. FINDINGS: Acute pulmonary embolism within the secondary branch of the right lower lobe. Series 401 image 80. Ri ght heart strain is not evident. The ascending aorta diameter at the level of the main pulmonary artery is 3.4 cm. The main pulmonary artery diameter at the bifurcation is 3.3 cm. Small to moderate bilateral pleural effusions are present. Facet atelectasis is adjacent. Small peric ardial effusion is present. This appears diminished or similar to the previous exam Thyroid is enlarged. Large hypodense areas fill the thyroid which extends towards the superior medias tinum, greater on the left. This was better delineated on the prior exam. Graft largest left axillary lymph nodes are present. The largest measures 2.4 cm. The markedly enlarged mass in the right axillary region is again evident. There is anterior left supe rior mediastinal mass above the main pulmonary artery measuring approximately 8.5 x 7.[address] section through the upper abdomen are unremarkable. IMPRESSIONS: 1. Right lower lobe pulmonary embolism. 2. Multiple chest, mediastinal and axillary masses, present previously. 3. Increasing small to moderate bilateral pleural effusions. 4. Similar or smaller pericardial effusion. A [place] critical message alert has been initiated for Erwin Quintanilla MD~[id number] via the [employer] Critical Results System on 03/22/2019 1:33 PM. This message alert has been sent to Erwin Quintanilla MD~[id number] via the preferences provided by the clinician for the receipt of Radiology Critical Findings. [email or web address] ID [id number].
[2019-03-22] MEDS ORDERED: HEPARIN SODIUM,PORCINE 5,000 UNIT/ML 1 ML VIAL IV PRN (14:46)
[2019-03-22] MEDS: HEPARIN SOD,PORK IN 0.45% NACL 25,000 UNIT in 0.45% NACL 1 250ML.BAG IV SCH ×2 (15:18→22:05)
[2019-03-22] MEDS: AMIODARONE 300 MG in DEXTROSE 5% IN WATER 250 ML IV SCH ×4 (15:19→21:55)
--- NOTE | 2019-03-22 15:42 | ECHOF ---
Referral Reason:aflutter MEASUREMENTS -------- HEIGHT: 180.3 cm WEIGHT: 98.4 kg BP: 120/60 IVSd: 0.8 cm (0.6 - 1.1) LVIDd: 2.6 cm (3.9 - 5.3) LVPWd: 1.2 cm (0.6 - 1.1) IVSs: 1.4 cm LVIDs: 1.8 cm LVPWs: 0.8 cm RVIDd: 3.4 cm (< 3.3) Ao Diam: 2.2 cm (2.0 - 3.7) LA Diam: 2.3 cm (2.7 - 3.8) AV Cusp: 1.4 cm (1.5 - 2.6) EPSS: 0.4 cm MV E Isael: 1.13 m/s MV DecT: 243 ms MV A Isael: 0.38 m/s MV E/A Ratio: 2.96 RAP: 5.00 mmHg RVSP: 60.10 mmHg MV EF SLOPE: 98.21 mm/s (70 - 150) MV EXCURSION: 15.27 mm (> 18.000) FINDINGS -------- Sinus rhythm with extra systolic beats. This was a technically difficult study with suboptimal views. The left ventricular size is normal. There is mild concentric left ventricular hypertrophy. Overa ll left ventricular systolic function is low-normal with, an EF between 50 - 55 %. The right ventricle is mildly enlarged. The left atrial size is normal. The right atrial size is normal. Interatrial and interventricular septum intact. The aortic valve is trileaflet and appears structurally normal. The mitral valve leaflets are mildly thickened. Mild mitral regurgitation is present. Moderate tricuspid regurgitation present. There is moderate pulmonary hypertension. The right oniel tricular systolic pressure, as measured by Doppler, is 60.10mmHg. There is no pulmonic regurgitation present. The aortic root size is normal. Normal inferior vena cava with normal inspiratory collapse consistent with estimated right atrial pre ssure of 5 mmHg. There is a moderate, generalized pericardial effusion present. Large Pleural Effusion. CONCLUSIONS -------- 1. Sinus rhythm with extra systolic beats. 2. This was a technically difficult study with suboptimal views. 3. The left ventricular size is normal. 4. There is mild concentric left ventricular hypertrophy. 5. Overall left ventricular systolic function is low-normal with, an EF between 50 - 55 %. 6. The right ventricle is mildly enlarged. 7. The left atrial size is normal. 8. The right atrial size is normal. 9. Interatrial and interventricular septum intact. 10. The aortic valve is trileaflet and appears structurally normal. 11. The mitral valve leaflets are mildly thickened. 12. Mild mitral regurgitation is present. 13. Moderate tricuspid regurgitation present. 14. There is moderate pulmonary hypertension. 15. The right ventricular systolic pressure, as measured by Doppler, is 60.10mmHg. 16. There is no pulmonic regurgitation present. 17. The aortic root size is normal. 18. Normal inferior vena cava with normal inspiratory collapse consistent with estimated right atrial pressure of 5 mmHg. 19. There is a moderate, generalized pericardial effusion present. 20. Large Pleural Effusion. [employer]: Chelsea Gallardo RDCS
--- NOTE | 2019-03-22 15:58 | US ---
EXAMINATION TYPE: US venous doppler duplex UE DATE OF EXAM: 03/22/2019 COMPARISON: NONE CLINICAL HISTORY: DVT. Edema PE Hx of melanoma. Exam limitations due to edema. SIDE PERFORMED: Bilateral. Grayscale, color doppler, spectral doppler imaging performed of the deep veins of the upper extremiti es. There is normal flow, compressibility and vascular waveforms. Right Arm: Appears negative for DVT. Cephalic Vein not seen secondary to edema. Left Arm: Appears negative for DVT. Cephalic Vein not seen secondary to edema. Mass seen near right subclavian 6 cm. IMPRESSION: 1. No sonographic evidence of deep venous thrombosis within the bilateral lower extremities. The ceph alic veins are not visualized secondary to edema bilaterally. 2. Large heterogenous avascular masses seen directly adjacent to the subclavian artery and vein on th e right. This may represent a large hematoma or large axillary mass, possibly melanoma, sarcoma or ly mphoma. In addition to the mediastinal mass seen on the CT of the same date metastatic melanoma or ly mphoma are of primary diagnostic consideration. Percutaneous biopsy could be considered if primary is not known.
--- NOTE | 2019-03-22 16:04 | US ---
EXAMINATION TYPE: US venous doppler duplex LE DATE OF EXAM: 03/22/2019 3:28 PM COMPARISON: NONE CLINICAL HISTORY: DVT. PE Hx of melanoma. Edema. SIDE PERFORMED: Bilateral TECHNIQUE: The lower extremity deep venous system is examined utilizing real time linear array sonog bhavna with graded compression, doppler sonography and color-flow sonography. VESSELS IMAGED: External Iliac Vein (EIV) Common Femoral Vein Deep Femoral Vein Greater Saphenous Vein * Femoral Vein Popliteal Vein Small Saphenous Vein * Proximal Calf Veins (* superficial vessels) Right Leg: Positive for DVT from External Iliac Vein to Popliteal Vein. Left Leg: Positive for DVT Femoral Vein mid to distal. IMPRESSION: Bilateral lower extremities are positive for deep venous thrombosis. On the right this ex tends from the external iliac vein to the popliteal vein in the left this extends from the femoral ve in in its midportion to the distal femoral vein. This patient has known pulmonary emboli communicated with the ER earlier on the same date.
--- NOTE | 2019-03-22 21:34 | P.CONS ---
History of Present Illness - Reason for Consult Consult date: 03/22/19 - History of Present Illness This is a 64 yr old WM, who presented with persistent cough,started around August/2018,he had a CXR which was suspicious for left hilar lesion,had a CT scan of chest on 12/16/2018 which revealed very large right axillary node(10x8.9cm),large anterior mediastinal mass (7.5x6.8cm),small pericardial and small left pleural effusion. On 12/18/2018,PET scan showed very suspicious uptake in right supraclavicular mass (measured 4.1x3.4cm),large right axillary mass with suspicious uptake,multi ple suspicious mediastinal masses,smaller suspicious left axillary node,1.1cm subcutaneous lesion in posterior lower thoracic area,multiple abdominal and pelvic masses,larger RLQ mass (5.4x4.6cm),left femoral intramedullary mid distal diaphysis lesion with other osseous lesions. On 12/20/2018,core biopsy of right axillary node was positive for metastatic melanoma. He had right should melanoma in 2011,treated with wide excision,it was 0.8mm in depth (records from [facility] were reviewed). BRAF mutation was negative. On 12/29/2018,LDH was 618 On 12/29/2018,brain MRI revealed small multiple small lesions (asymptomatic,monitored by rad/onc) He started double antibody therapy with Yervoy/Opdivo on 01/07/2019 He has had 3 cycles so far,he had infusion reaction to opdivo on the second and third cycle,no reaction to yervoy when administered after opdivo ,which resolved in office quickly. He presented to the hospital with multiple complaints. He has a history of shortness of breath or exertion since diagnosis. He states that this is getting progressively worse since his last treatment about 3 weeks ago. Over the past couple of days he was also experiencing irregular heartbeat. He has had swelling of his lower extremities and the right upper approximately, but noted increase in both of these, or the past few days In the hospital he was found to be in atrial flutter with rapid response. He was therefore admitted and started on IV heparin. Consult was placed for further evaluation and recommendations. He denied any fever/chills/nausea/vomiting/obvious bleeding Review of Systems Constitutional: Reports chronic pain, Reports fatigue, Reports poor appetite, Reports weakness Eyes: denies blurred vision, denies pain Ears: deny: decreased hearing, ear discharge, earache, tinnitus Ears, nose, mouth and throat: Denies headache, Denies sore throat Cardiovascular: Reports edema, Reports palpitations, Reports shortness of breath Respiratory: Reports dyspnea Gastrointestinal: Reports diarrhea, Reports loss of appetite, Denies abdominal pain, Denies nausea, Denies vomiting Genitourinary: Reports as per HPI Musculoskeletal: Reports as per HPI (marked right upper extremity edema, bilateral lower extremity edema) Integumentary: Reports as per HPI Neurological: Reports weakness Psychiatric: Reports anxiety Endocrine: Reports fatigue Hematologic/Lymphatic: Reports as per HPI, Reports lymphadenopathy Past Medical History Past Medical History: Hyperlipidemia, Hypertension Additional Past Medical History / Comment(s): stage 4 melanoma History of Any Multi-Drug Resistant Organisms: None Reported Additional Past Surgical History / Comment(s): 2009 - melanoma - 12 inch scar on back. Past Anesthesia/Blood Transfusion Reactions: No Reported Reaction Past Psychological History: No Psychological Hx Reported Smoking Status: Never smoker Past Alcohol Use History: Occasional Additional Past Alcohol Use History / Comment(s): quit 1979 Past Drug Use History: None Reported - Past Family History Mother Family Medical History: Cancer Additional Family Medical History / Comment(s): brain cancer Medications and Allergies Home Medications Medication Instructions Recorded Confirmed Type Fenofibrate [Lofibra] 160 mg PO DAILY 12/20/18 03/21/19 History ALPRAZolam [Xanax] 0.5 mg PO BID PRN 03/21/19 03/21/19 History Furosemide [Lasix] 20 mg PO DAILY 03/21/19 03/21/19 History Allergies Allergy/AdvReac Type Severity Reaction Status Date / Time No Known Allergies Allergy Verified 03/21/19 19:52 Physical Exam Vitals: Vital Signs Temp Pulse Pulse Resp BP BP Pulse Ox 03/22/19 16:00 97.9 F 81 18 102/63 94 L 03/22/19 11:30 97.7 F 84 18 113/65 98 03/22/19 10:41 84 121/63 03/22/19 10:26 90 100/62 03/22/19 08:00 98.1 F 91 20 113/70 99 03/22/19 05:48 150/75 03/22/19 04:00 98.5 F 100 20 106/69 95 03/22/19 01:42 97.5 F L 131 H 20 104/88 96 03/22/19 00:42 137 H 03/22/19 00:40 165 H 20 139/87 96 03/22/19 00:35 162 H 18 139/89 97 03/21/19 23:58 163 H 20 125/97 97 03/21/19 23:57 98 F 150 H 20 145/80 96 03/21/19 23:17 169 H 20 127/93 97 03/21/19 22:21 174 H 20 129/102 97 03/21/19 21:55 176 H 18 122/91 97 03/21/19 21:08 176 H 20 125/90 97 03/21/19 20:47 174 H 20 141/114 99 03/21/19 20:09 176 H 18 132/94 97 03/21/19 20:05 172 H 18 149/102 99 03/21/19 19:24 97.5 F L 173 H 18 146/97 96 Intake and Output 03/22/19 03/22/19 03/22/19 06:59 14:59 22:59 Intake Total 66.513 596 356 Balance 66.513 596 356 Intake: Intake, IV Titration 66.513 Amount Heparin Sod,Pork in 0.45% 66.513 NaCl 25,000 unit In 0.45 % NaCl 1 250ml.bag @ 9.8 UNITS/KG/HR 10.002 mls/hr IV .Q24H COUNT INCLUDES THE [facility] Rx#: [id number] Oral 596 356 Other: Voiding Method Bedside Commode Bedside Commode # Voids 1 1 2 # Bowel Movements 1 Weight 98.5 kg - Constitutional General appearance: mild distress - EENT Eyes: EOMI, PERRLA ENT: hearing grossly normal, normal oropharynx - Neck Neck: no lymphadenopathy Thyroid: bilateral: normal size - Respiratory Respiratory: bilateral: CTA - Cardiovascular Rhythm: regular Heart sounds: normal: S1, S2 - Gastrointestinal General gastrointestinal: soft - Integumentary Integumentary: normal - Neurologic Neurologic: CNII-XII intact - Musculoskeletal Bilateral lower extremity 2+ edema RUE 2-3+ edema Musculoskeletal: generalized weakness - Psychiatric Psychiatric: A&O x's 3, appropriate affect (Large mass irreg Rt axilla limiting ROM RUE) Results CBC & Chem 7: 03/22/19 05:36 03/21/19 19:39 Labs: Abnormal Lab Results - Last 24 Hours (Table) 03/21/19 03/21/19 03/21/19 Range/Units 19:39 19:39 19:39 RBC (4.30-5.90) m/uL Hgb 12.7 L (13.0-17.5) gm/dL Hct (39.0-53.0) % MCHC 30.8 L (31.0-37.0) g/dL RDW 18.8 H (11.5-15.5) % Lymphocytes # 0.2 L (1.0-4.8) k/uL APTT 18.1 L (22.0-30.0) sec Carbon Dioxide 18 L (22-30) mmol/L BUN 30 H (9-20) mg/dL Glucose 104 H (74-99) mg/dL Alkaline Phosphatase 190 H (38-126) U/L Creatine Kinase 42 L (55-170) U/L Albumin 2.9 L (3.5-5.0) g/dL 03/22/19 03/22/19 03/22/19 Range/Units 05:36 05:36 13:11 RBC 4.24 L (4.30-5.90) m/uL Hgb 11.2 L (13.0-17.5) gm/dL Hct 37.4 L (39.0-53.0) % MCHC 30.0 L (31.0-37.0) g/dL RDW 18.2 H (11.5-15.5) % Lymphocytes # 0.3 L (1.0-4.8) k/uL APTT 33.3 H >200.0 H* (22.0-30.0) sec Carbon Dioxide (22-30) mmol/L BUN (9-20) mg/dL Glucose (74-99) mg/dL Alkaline Phosphatase (38-126) U/L Creatine Kinase (55-170) U/L Albumin (3.5-5.0) g/dL Chest x-ray: report reviewed Assessment and Plan (1) Atrial flutter with rapid ventricular response Narrative/Plan: The patient entered with progressive shortness of breath, as well as atrial arrhythmia. The atrial arrhythmia is new for him. In this patient with meta static malignancy, new onset atrial arrhythmia is suspicious for pulmonary embolism. Therefore CTA of the chest will be ordered. Patient is already on IV heparin. If CT is positive, he can be adjusted to the VTE treatment dose Current Visit: Yes Status: Acute Code(s): I48.92 - UNSPECIFIED ATRIAL FLUTTER SNOMED Code(s): 1069688 (2) Edema Narrative/Plan: The patient has lymphedema of the right arm, due to large malignant mass in the axilla. Lower extremity edema however has been progressive and much more marked over the last few days. Given suspicion for venous thrombus embolism, in addition to CTA, Dopplers of the lower extremities and right upper extremity will be ordered Current Visit: Yes Status: Acute Code(s): R60.9 - EDEMA, UNSPECIFIED S NOMED Code(s): 416321012 (3) Melanoma Narrative/Plan: Diagnostic and therapeutic circumstances as described. The patient was concern that his current presentation represented a reaction to his treatment. Workup is in progress, including cardiology evaluation with echocardiogram. If venous thrombus embolism is determined to be the cause, then the patient can resume treatment with his regimen, once acute situation is sufficiently resolved. However if the patient is determined to have treatment related side effects, such as myocarditis/pericarditis/pneumonitis then we will need to institute steroids Current Visit: Yes Status: Acute Code(s): C43.9 - MALIGNANT MELANOMA OF SKIN, UNSPECIFIED SNOMED Code(s): 508815873
[2019-03-23 06:42] LABS: Anisocytosis Slight; Basophils % (A) 0 %; Eosinophils % (A) 0 %; HCT 36.8 % (39.0-53.0); HGB 11.2 gm/dL (13.0-17.5); Hypochromasia Marked; Lymphocytes # (A) 0.3 k/uL (1.0-4.8); Lymphocytes % (A) 8 %; MCH 27.3 pg (25.0-35.0); MCHC 30.5 g/dL (31.0-37.0); MCV 89.5 fL (80.0-100.0); Mean Platelet Volume 7.9; Monocytes # (A) 0.3 k/uL (0-1.0); Monocytes % (A) 7 %; Neutrophils # (A) 3.3 k/uL (1.3-7.7); Neutrophils % (A) 83 %; Platelet Count 160 k/uL (150-450); RBC 4.11 m/uL (4.30-5.90); RDW 18.6 % (11.5-15.5); WBC 3.9 k/uL (3.8-10.6)
[2019-03-23 07:24] LABS: Albumin 2.7 g/dL (3.5-5.0); Calcium 7.7 mg/dL (8.4-10.2); Potassium 3.6 mmol/L (3.5-5.1); Total Bilirubin 0.4 mg/dL (0.2-1.3); Total Protein 5.9 g/dL (6.3-8.2)
[2019-03-23] MEDS: METOPROLOL SUCCINATE (ER) 50 MG TAB.ER.24H PO SCH (09:15)
[2019-03-23] MEDS: FENOFIBRATE 160 MG TAB PO SCH (09:15)
[2019-03-23] MEDS: PANTOPRAZOLE 40 MG/10 ML VIAL IVP SCH (09:16)
[2019-03-23] MEDS: FUROSEMIDE 10 MG/ML 4 ML VIAL IV SCH ×3 (09:16→22:44)
--- NOTE | 2019-03-23 09:24 | XR ---
EXAMINATION TYPE: XR chest 1V portable DATE OF EXAM: 03/23/2019 COMPARISON: 03/21/2019 HISTORY: Pleural effusions TECHNIQUE: Single frontal view of the chest is obtained. FINDINGS: There are stable pleural effusions, trace on the right and small on the left with bibasila r airspace disease, left greater than right. Left perihilar masslike consolidation remains partially obscuring the cardiomediastinal silhouette. No sizable pneumothorax. Enlarged cardiac mediastinal estuardo houette is partially visualized. IMPRESSION: Similar trace right and small left pleural effusions in comparison to the prior x-ray of 03/21/2019 with left perihilar airspace disease that is also similar to the prior. Follow-up to resolu tion of this airspace disease as it appears nodular in contour.
--- NOTE | 2019-03-23 10:40 | P.PN ---
Subjective Progress Note Date: 03/23/19 Principal diagnosis: Dyspnea with bilateral pleural effusions and pulmonary embolism/DVT with new atrial flutter This a very pleasant 64-year-old gentleman who follows with Dr. Mcneill is his primary care physician. His history of hypertension and hyperlipidemia, previous smoking history. He also has stage IV melanoma and follows with Dr. Alegria in the outpatient setting. He had treatment approximately 3 weeks ago. He presented to the emergency room yesterday with shortness of breath with atrial flutter with rapid ventricular response. He was initially given 6 mg of Benicar which slowed the rhythm down to identify the atrial flutter. He was surgically started on Cardizem and then seen and evaluated by radiology and he is currently on amiodarone at 0.5 mg/m. He is also on a heparin drip. Chest x- ray revealed bibasilar effusions. Echocardiogram reveals preserved left ventricular systolic function with ejection fraction 50-55%. There is moderate pulmonary hypertension. CT angiogram reveals a right lower lobe pulmonary embolism. There is bilateral pulmonary effusions and a small pericardial effusion. There are multiple chest, mediastinal and axillary masses present, suspect progression of his melanoma. Doppler of the lower extremities revealed bilateral DVT. Ultrasound of the chest reveals a 10 cm pocket on the left and a 7.4 cm pocket on the right. We will plan for a left-sided thoracentesis today. Objective - Vital Signs Vital signs: Vital Signs Temp 98.6 F 03/23/19 08:10 Pulse 70 03/23/19 08:10 Resp 18 03/23/19 08:10 BP 117/69 03/23/19 08:10 Pulse Ox 95 03/23/19 08:10 Intake & Output 03/22/19 03/23/19 03/23/19 18:59 06:59 18:59 Intake Total 952 104.903 385.097 Output Total 300 Balance 952 104.903 85.097 Weight 98.4 kg Intake: Intake, IV Titration 104.903 145.097 Amount Heparin Sod,Pork in 0.45% 104.903 145.097 NaCl 25,000 unit In 0.45 % NaCl 1 250ml.bag @ 18 UNITS/KG/HR 17.73 mls/hr IV .Q14H7M [facility] Rx#: [id number] Oral 952 240 Output: Urine 300 Other: Voiding Method Bedside Commode Bedside Commode # Voids 2 1 1 # Bowel Movements 1 1 - Exam GENERAL EXAM: Alert, fairly comfortable in no apparent distress. On 15 L high flow nasal cannula. HEAD: Normocephalic. EYES: Normal reaction of pupils, equal size. NOSE: Clear with pink turbinates. THROAT: No erythema or exudates. NECK: No masses, no JVD. CHEST: No chest wall deformity. LUNGS: Equal air entry with bibasilar crackles left greater than right, diminished, dullness bilaterally. CVS: S1 and S2 normal with no audible murmur, regular rhythm. ABDOMEN: No hepatosplenomegaly, normal bowel sounds, no guarding or rigidity. SPINE: No scoliosis or deformity SKIN: No rashes CENTRAL NERVOUS SYSTEM: No focal deficits, tone is normal in all 4 extremities. EXTREMITIES: There is no peripheral edema. No clubbing, no cyanosis. Periphera l pulses are intact. - Labs CBC & Chem 7: 03/23/19 05:59 03/23/19 05:59 Labs: Abnormal Lab Results - Last 24 Hours (Table) 03/22/19 03/22/19 03/23/19 Range/Units 13:11 20:21 05:59 RBC 4.11 L (4.30-5.90) m/uL Hgb 11.2 L (13.0-17.5) gm/dL Hct 36.8 L (39.0-53.0) % MCHC 30.5 L (31.0-37.0) g/dL RDW 18.6 H (11.5-15.5) % Lymphocytes # 0.3 L (1.0-4.8) k/uL APTT >200.0 H* 127.2 H* (22.0-30.0) sec BUN (9-20) mg/dL Creatinine (0.66-1.25) mg/dL Calcium (8.4-10.2) mg/dL Alkaline Phosphatase (38-126) U/L Total Protein (6.3-8.2) g/dL Albumin (3.5-5.0) g/dL 03/23/19 03/23/19 Range/Units 05:59 05:59 RBC (4.30-5.90) m/uL Hgb (13.0-17.5) gm/dL Hct (39.0-53.0) % MCHC (31.0-37.0) g/dL RDW (11.5-15.5) % Lymphocytes # (1.0-4.8) k/uL APTT 40.8 H (22.0-30.0) sec BUN 32 H (9-20) mg/dL Creatinine 1.36 H (0.66-1.25) mg/dL Calcium 7.7 L (8.4-10.2) mg/dL Alkaline Phosphatase 161 H (38-126) U/L Total Protein 5.9 L (6.3-8.2) g/dL Albumin 2.7 L (3.5-5.0) g/dL Assessment and Plan Assessment: Impression: #1 New onset atrial flutter with a rapid ventricular response, initiated on amiodarone, currently in sinus rhythm. #2 Bilateral pleural effusions left greater than right. #3 Right lower lobe pulmonary embolism with bilateral lower extremity DVTs. On heparin drip. #4 Multiple chest, mediastinal and axillary masses. Progression of melanoma. #5 Acute hypoxic respiratory failure secondary to above. Currently on 15 L high flow nasal cannula. #6 Recurrent metastatic melanoma, initially treated in 2011 with wide excision. Recurrence in December 2018 and treated with Opdivo. Rest treatment approximately 3 weeks ago. #7 history of hypertension. #8 Hyperlipidemia. #9 History of previous tobacco dependence. Plan: The patient was seen and evaluated by Dr. Chase. Chest x-ray, CAT scan and ultrasound all reviewed. We will go ahead and discontinue the heparin for 2 hours and perform a left-sided thoracentesis today. The patient's overall prognosis is quite guarded. We'll continue with diuretics. Currently in sinus rhythm. We'll continue to follow make further recommendations based on his cli nical status. I, the cosigning physician, performed a history & physical examination of the patient. Lungs sounds with bilateral crackles left greater than right, dullness. Maintaining good O2 saturations in the 90s on 2 L high flow nasal cannula. I discussed the assessment and plan of care with my nurse practitioner, Yennifer Jimenez. I attest to the above note as dictated by her.
[2019-03-23] MEDS ORDERED: Potassium Replacement Protocol 1 EACH MISC MISCELLANE PRN (11:30)
[2019-03-23] MEDS ORDERED: POTASSIUM CHLORIDE ER 20 MEQ TAB.ER PO SCH (12:00)
[2019-03-23] MEDS: HEPARIN SOD,PORK IN 0.45% NACL 25,000 UNIT in 0.45% NACL 1 250ML.BAG IV SCH (13:03)
--- NOTE | 2019-03-23 13:15 | XR ---
EXAMINATION TYPE: XR chest 1V portable DATE OF EXAM: 03/23/2019 COMPARISON: 03/23/[address] dated 03/22/2019 HISTORY: Status post left-sided thoracentesis TECHNIQUE: Single frontal view of the chest is obtained. FINDINGS: Right-sided basilar airspace disease has become more confluent in the interim. Resolution of the previously seen left pleural effusion. Trace right pleural effusion remains. No postprocedural pneumothorax. Again there is an enlarged cardiac mediastinal silhouette secondary to the large super ior mediastinal mass. IMPRESSION: 1. Resolved left pleural effusion with no post procedural pneumothorax. 2. Right basilar consolidation has worsened in the interim although likely related to atelectasis. Tr efrain right pleural effusion remains. 3. Widened mediastinum relates to the patient's known mediastinal mass.
[2019-03-23] MEDS: LORATADINE 10 MG TAB PO SCH (14:31)
--- NOTE | 2019-03-23 15:17 | P.PN ---
Subjective Progress Note Date: 03/23/19 This is a 64-year-old gentleman recently diagnosed with stage IV melanoma of clavicle, right axilla on immunotherapy over the last 3 months, hypertension, hyperlipidemia presented to the ER with complaints of worsening weakness accompanied by increasing shortness of breath and complaints of irregular heart beat. About a week ago was prescribed a walker. Also complains of right swollen hand weeping 1 week with fluctuating spasms-denies trauma and bilateral lower extremity edema. Reports weakness initially started after beginning on immunotherapy. Denies chest pain, palpitations. Denies lightheadedness, dizziness or syncope . No focal deficits. Denies fever or chills .EKG reported atrial flutter with RVR, received adenosine, digoxin with nonspecific ST configuration and placed on IV Cardizem and heparin drips. Chest x-ray reporting by basilar atelectasis, possible bronchopneumonia, prominent pleural effusions bilaterally, greater on the left. BNP 52501. Tachypneic, maintaining O2 sats in the high 90s on 2 L nasal cannula. Afebrile, normal WBC. Cardiology and oncology consulted. 03/23/2019 currently maintained on amiodarone and heparin drips. evaluated by both pulmonary and oncology with recommendations noted and appreciated. Chest x-ray reported by bibasilar pleural effusions. Chest ultrasound reporting 10 cm pocket on the left and some 0.4 cm pocket on the right, left-sided thoracentesis pending. Echo reporting preserved LV function, EF to 55%, moderate pulmonary hypertension, moderate tricuspid regurgitation, moderate, generalized pericardial effusion. CT reporting right lower lobe pulmonary embolism, bilateral pulmonary effusions and small pericardial effusion, enlarged thyroid. Multiple chest, mediastinal and axillary masses present previously -suspected progression of melanoma. Doppler of the lower extremities reporting bilateral DVT. Doppler of upper extremities reporting negative for DVT of right and left arm, cephalic veins not seen secondary to the edema, mass seen near right subclavian 6 cm .Requiring 15 L high flow nasal cannula to maintain O2 sats in the 90s. Continues on Lasix IV push, Creatinine increased to 1.36. K 3.6. Complains of left ear pain; examined by Dr. Alas with otoscope reporting fluid behind eardrum-patient currently on Claritin. Objective - Vital Signs Vital signs: Vital Signs Temp 98.6 F 03/23/19 08:10 Pulse 70 03/23/19 11:20 Resp 16 03/23/19 11:20 BP 101/56 03/23/19 11:20 Pulse Ox 98 03/23/19 11:20 Intake & Output 03/22/19 03/23/19 03/23/19 18:59 06:59 18:59 Intake Total 952 104.903 625.097 Output Total 300 Balance 952 104.903 325.097 Weight 98.4 kg 98.4 kg Intake: Intake, IV Titration 104.903 145.097 Amount Heparin Sod,Pork in 0.45% 104.903 145.097 NaCl 25,000 unit In 0.45 % NaCl 1 250ml.bag @ 18 UNITS/KG/HR 17.73 mls/hr IV .Q14H7M [facility] Rx#: [id number] Oral 952 480 Output: Urine 300 Other: Voiding Method Bedside Commode Bedside Commode Bedside Commode # Voids 2 1 1 # Bowel Movements 1 1 - Exam VITAL SIGNS: As above GENERAL: Sitting up in bed, no acute distress, respiratory effort increased HEENT: Normocephalic, Conjunctivae normal. Pupils equal NECK: Supple, No JVD. CARDIOVASCULAR: S1, S2, irregular, positive systolic murmur RESPIRATION: Breath sounds diminished in the bases, dullness greater on the left. No rhonchi, bilateral crackles. ABDOMEN: Soft, nontender . Distended. No guarding. no masses palpable. Possible ascites.Bowel sounds heard. EXTREMITIES: Bilateral upper and lower extremity edema, PSYCHIATRY: Alert and oriented X3, mood and affect normal. NERVOUS SYSTEM: Cranial N 2-12 grossly normal. Moves all 4 limbs. Diffuse weakness No focal deficits. Strength and sensation grossly intact.. Skin: No rash, right clavicle/right axilla palpable mass. Right hand weeping. - Labs CBC & Chem 7: 03/23/19 05:59 03/23/19 05:59 Labs: Abnormal Lab Results - Last 24 Hours (Table) 03/22/19 03/22/19 03/23/19 Range/Units 13:11 20:21 05:59 RBC 4.11 L (4.30-5.90) m/uL Hgb 11.2 L (13.0-17.5) gm/dL Hct 36.8 L (39.0-53.0) % MCHC 30.5 L (31.0-37.0) g/dL RDW 18.6 H (11.5-15.5) % Lymphocytes # 0.3 L (1.0-4.8) k/uL APTT >200.0 H* 127.2 H* (22.0-30.0) sec BUN (9-20) mg/dL Creatinine (0.66-1.25) mg/dL Calcium (8.4-10.2) mg/dL Alkaline Phosphatase (38-126) U/L Total Protein (6.3-8.2) g/dL Albumin (3.5-5.0) g/dL 03/23/19 03/23/19 Range/Units 05:59 05:59 RBC (4.30-5.90) m/uL Hgb (13.0-17.5) gm/dL Hct (39.0-53.0) % MCHC (31.0-37.0) g/dL RDW (11.5-15.5) % Lymphocytes # (1.0-4.8) k/uL APTT 40.8 H (22.0-30.0) sec BUN 32 H (9-20) mg/dL Creatinine 1.36 H (0.66-1.25) mg/dL Calcium 7.7 L (8.4-10.2) mg/dL Alkaline Phosphatase 161 H (38-126) U/L Total Protein 5.9 L (6.3-8.2) g/dL Albumin 2.7 L (3.5-5.0) g/dL Assessment and Plan Assessment: Atrial flutter with RVR, new onset -Acute CHF exacerbation, EF currently unknown, echo pending -Right lower lobe PE -Bilateral lower extremity DVTs -Bilateral pleural effusions, greater on the left -Multiple chest, mediastinal and axillary masses, possibly metastasis, progression of melanoma -Right subclavian mass 6 cm -Bibasilar atelectasis, possible bronchopneumonia -Generalized weakness, gait dysfunction-now using a walker -Recently diagnosed recurrent melanoma stage IV, on immunotherapy -Hypertension -Hyperlipidemia -Hypoalbuminemia -History of nicotine dependence -Moderate pulmonary hypertension -Moderate tricuspid regurgitation -Moderate, generalized pericardial effusion per echo -Acute hypoxic respiratory failure, multifactorial secondary to all the above, currently on 15 L high flow nasal cannula Plan: Continue current medication regime , beta pee, monitoring and symptomatic treatment. Vascular surgery consulted for Port-A-Cath placement as requested per oncology. Maintain diuretics. Heparin drip currently OFF for upcoming left-sided thoracentesis. Close monitoring of renal function, electrolytes with repeat labs ordered for a.m. ensure supplements ordered .Further recommendations to follow. Prognosis guarded given multiple complex medical issues. The impression and plan of care has been dictated as directed. : I performed a history and examination of this patient, discussed the same with the dictator. I agree with the dictator's note ,documented as a scribe. Any additional findings or plans will be noted. Time taken: 35 minutes
--- NOTE | 2019-03-23 15:35 | P.PN ---
Subjective Progress Note Date: 03/23/19 This is a 64-year-old gentleman with history of hypertension, hyperlipidemia, nondiabetic, nonsmoker, history of melanoma, diagnosed in November, presents to the hospital with symptoms of progressive weakness with associated shortness of breath, lower extremity edema, PND and orthopnea. Patient also states that over the past one month he's been noticing his heart rate intermittently to go fast and irregular. Blood pressure on arrival here 146/96, heart rate 170, 96% on room air. Blood pressure this morning 114/70 with a heart rate of 90, 99% on 2 L of oxygen. White blood cell count 4.5, hemoglobin 11.2, platelet count 183. Sodium 139, potassium 4.3, BUN 30, creatinine 1.1. Magnesium 1.8. Troponin 0.031, BNP 11,900. Chest x-ray on presentation here showed bilateral pleural effusions. EKG on arrival here showed atrial flutter with a rapid ventricular response. Patient was initially given 6 mg of adenosine in the emergency room, then subsequently given Lanoxin and initiated on IV Cardizem as well as IV heparin, continues to be in atrial flutter this morning, his heart rate is in the 90 range. At the time of my examination this morning, patient is sitting up at the bedside, he still feel somewhat short of breath and quite weak. He was initiated on IV Lasix in the emergency room and is also on oral diuretics. 03/23/2019 She was seen and examined this morning, continues to be in normal sinus rhythm. He was found on ultrasound to have significant bilateral pleural effusions and underwent a thoracentesis today. He does state overall that he is feeling better today.he continues to be on IV amiodarone, the heparin had been discontinued to perform the thoracentesis. Patient was also found on CAT scan to havepulmonary embolism as well as multiple mediastinotomy and axillary masses, which suggests progression of his melanoma. Doppler of the lower extremities revealed bilateral DVT.like pressure today 100/50 with a heart rate in the 70s.White blood cell count 3.9, hemoglobin 11.2, platelet count 160. Sodium 141, potassium 3.6, BUN 32 and creatinine 1.3. Objective - Vital Signs Vital signs: Vital Signs Temp 98.6 F 03/23/19 08:10 Pulse 70 03/23/19 11:20 Resp 16 03/23/19 11:20 BP 101/56 03/23/19 11:20 Pulse Ox 98 03/23/19 11:20 Intake & Output 03/22/19 03/23/19 03/23/19 18:59 06:59 18:59 Intake Total 952 104.903 625.097 Output Total 300 Balance 952 104.903 325.097 Weight 98.4 kg 98.4 kg Intake: Intake, IV Titration 104.903 145.097 Amount Heparin Sod,Pork in 0.45% 104.903 145.097 NaCl 25,000 unit In 0.45 % NaCl 1 250ml.bag @ 18 UNITS/KG/HR 17.73 mls/hr IV .Q14H7M [facility] Rx#: [id number] Oral 952 480 Output: Urine 300 Other: Voiding Method Bedside Commode Bedside Commode Bedside Commode # Voids 2 1 1 # Bowel Movements 1 1 - Exam GENERAL EXAM: Alert, fairly comfortable in no apparent distress. On 15 L high flow nasal cannula. HEAD: Normocephalic. EYES: Normal reaction of pupils, equal size. NOSE: Clear with pink turbinates. THROAT: No erythema or exudates. NECK: No masses, no JVD. CHEST: No chest wall deformity. LUNGS: Equal air entry with bibasilar crackles left greater than right, diminished, dullness bilaterally. CVS: S1 and S2 normal with no audible murmur, regular rhythm. ABDOMEN: No hepatosplenomegaly, normal bowel sounds, no guarding or rigidity. SPINE: No scoliosis or deformity SKIN: No rashes CENTRAL NERVOUS SYSTEM: No focal deficits, tone is normal in all 4 extremities. EXTREMITIES: There is no peripheral edema. No clubbing, no cyanosis. Peripheral pulses are intact. - Labs CBC & Chem 7: 03/23/19 05:59 03/23/19 05:59 Labs: Abnormal Lab Results - Last 24 Hours (Table) 03/22/19 03/23/19 03/23/19 Range/Units 20:21 05:59 05:59 RBC 4.11 L (4.30-5.90) m/uL Hgb 11.2 L (13.0-17.5) gm/dL Hct 36.8 L (39.0-53.0) % MCHC 30.5 L (31.0-37.0) g/dL RDW 18.6 H (11.5-15.5) % Lymphocytes # 0.3 L (1.0-4.8) k/uL APTT 127.2 H* (22.0-30.0) sec BUN 32 H (9-20) mg/dL Creatinine 1.36 H (0.66-1.25) mg/dL Calcium 7.7 L (8.4-10.2) mg/dL Alkaline Phosphatase 161 H (38-126) U/L Total Protein 5.9 L (6.3-8.2) g/dL Albumin 2.7 L (3.5-5.0) g/dL 03/23/19 Range/Units 05:59 RBC (4.30-5.90) m/uL Hgb (13.0-17.5) gm/dL Hct (39.0-53.0) % MCHC (31.0-37.0) g/dL RDW (11.5-15.5) % Lymphocytes # (1.0-4.8) k/uL APTT 40.8 H (22.0-30.0) sec BUN (9-20) mg/dL Creatinine (0.66-1.25) mg/dL Calcium (8.4-10.2) mg/dL Alkaline Phosphatase (38-126) U/L Total Protein (6.3-8.2) g/dL Albumin (3.5-5.0) g/dL Assessment and Plan Plan: Assessment and plan #1 typical atrial flutter with rapid ventricular response #2 congestive heart failure, LV function unknown #3 myeloma, stage IV, diagnosed in November #4 hypertension #5 hyperlipidemia #6 significant bilateral pleural effusions, status post thoracentesis #7 pulmonary embolism with DVT Plan from cardiology's perspective, we will continue the IV amiodarone, once infused we will start the patient on oral amiodarone. Heparin has been resumed post thoracentesis. DNP note has been reviewed, I agree with a documented findings and plan of care. Patient was seen and examined.
[2019-03-23 15:36] LABS: Appearance,BF Clear; Color,BF Yellow; Nucleated Cells, Body Fluid 53 /uL; RBC, Body Fluid 240 /uL
[2019-03-23 15:38] LABS: Mononuclear WBC,Body Fluid 81 %; Polynuclear WBC,Body Fluid 19 %; Total Cells Counted,Body Fluid 100
--- NOTE | 2019-03-23 18:20 | P.PN ---
Subjective Progress Note Date: 03/23/19 Principal diagnosis: Metastatic Melanoma DVT in BLE and PE Heparin Drip Objective - Vital Signs Vital signs: Vital Signs Temp 98.6 F 03/23/19 08:10 Pulse 70 03/23/19 11:20 Resp 16 03/23/19 11:20 BP 101/56 03/23/19 11:20 Pulse Ox 98 03/23/19 11:20 Intake & Output 03/22/19 03/23/19 03/23/19 18:59 06:59 18:59 Intake Total 952 104.903 625.097 Output Total 300 Balance 952 104.903 325.097 Weight 98.4 kg 98.4 kg Intake: Intake, IV Titration 104.903 145.097 Amount Heparin Sod,Pork in 0.45% 104.903 145.097 NaCl 25,000 unit In 0.45 % NaCl 1 250ml.bag @ 18 UNITS/KG/HR 17.73 mls/hr IV .Q14H7M [facility] Rx#: [id number] Oral 952 480 Output: Urine 300 Other: Voiding Method Bedside Commode Bedside Commode Bedside Commode # Voids 2 1 1 # Bowel Movements 1 1 - Exam Physical examGeneral: Alert and Oriented x3, No Acute Distress Head: Normocytic, Atraumatic Neck: Supple Mouth: No Lesions, No Thrush Eyes: Non-sclerotic No Palpable cervical, supraclavicular, axillary adenopathy Heart: Regular Rate, Regular Rhythm Lungs: Clear to Ausculations, No Wheeze, No Rhonchi, Diminishe bilateral lower lobes, No increased respiratory effort noted Abdomen: Soft, Non-Distended, Non-Tended, BSx4 Extremities: No Edema, Equal Strength Neurological: No Focal Defects: No sensory or motor deficits noted Psych: Calm and cooperative - Labs CBC & Chem 7: 03/25/19 07:43 03/25/19 07:43 Labs: Abnormal Lab Results - Last 24 Hours (Table) 03/22/19 03/23/19 03/23/19 Range/Units 20:21 05:59 05:59 RBC 4.11 L (4.30-5.90) m/uL Hgb 11.2 L (13.0-17.5) gm/dL Hct 36.8 L (39.0-53.0) % MCHC 30.5 L (31.0-37.0) g/dL RDW 18.6 H (11.5-15.5) % Lymphocytes # 0.3 L (1.0-4.8) k/uL APTT 127.2 H* (22.0-30.0) sec BUN 32 H (9-20) mg/dL Creatinine 1.36 H (0.66-1.25) mg/dL Calcium 7.7 L (8.4-10.2) mg/dL Alkaline Phosphatase 161 H (38-126) U/L Total Protein 5.9 L (6.3-8.2) g/dL Albumin 2.7 L (3.5-5.0) g/dL 03/23/19 Range/Units 05:59 RBC (4.30-5.90) m/uL Hgb (13.0-17.5) gm/dL Hct (39.0-53.0) % MCHC (31.0-37.0) g/dL RDW (11.5-15.5) % Lymphocytes # (1.0-4.8) k/uL APTT 40.8 H (22.0-30.0) sec BUN (9-20) mg/dL Creatinine (0.66-1.25) mg/dL Calcium (8.4-10.2) mg/dL Alkaline Phosphatase (38-126) U/L Total Protein (6.3-8.2) g/dL Albumin (3.5-5.0) g/dL Assessment and Plan Plan: Pulmonary Emboli - CT Chest did reveal PE - Continue Heparin Drip and will convert to DOAC at discharge, rec recheck Renal function in am to assist in choice of AC Upper and Lower Ext Edema BLE DVT - The patient has lymphedema of the right arm, due to large malignant mass in the axilla. - BLE Doppler reveals BLE DVT Melanoma - he patient was concern that his current presentation represented a reaction to his treatment. - Workup is in progress, including cardiology evaluation with echocardiogram. - IPlan to resume patient treatment at discharge Atrial flutter with rapid ventricular response Acute Kidney Injury: Increased Creatinine today - Recheck renal function in am
[2019-03-23] MEDS: ALPRAZolam 0.5 MG TAB PO PRN (18:40)
[2019-03-23] MEDS ORDERED: SIMETHICONE 80 MG CHEWABLE PO PRN (18:50)
[2019-03-23 20:48] LABS: Glucose, BF Source Thoracentesis Fluid; Glucose, Body Fluid 102 mg/dL; LDH, Body Fluid Source Thoracentesis Fluid; Total Protein, Body Fluid 1596 mg/dL
[2019-03-23] MEDS: traMADol 50 MG TAB PO PRN (22:57)
--- NOTE | 2019-03-24 01:05 | PCN ---
PROCEDURE NOTE Indication Pleural effusion. A time-out was completed verifying correct patient, procedure, site, positioning , and implant (s) or special equipment if applicable. Ultrasound guidance was used and appropriate fluid pocket was identified and marked. Patient was positioned, prepped and draped in usual sterile fashion. Lidocaine was used to anesthetize the area. A Thoracentesis catheter was introduced into the pleural space and fluid was removed. Blood loss was none. A chest x-ray was ordered to evaluate for pneumothorax. Total Fluid Removed 1500 mL Color of Fluid yellow Fluid was sent for appropriate laboratory tests. Patient tolerated the procedure well and there were no complications. The posterior chest was marked by ultrasound. 1500 mL of yellow fluid was removed. There was no immediate complication. The fluid will be sent for analysis. This will include microbiology x3 and cytology. The patient tolerated the procedure well. There was no immediate complication. The operators were Dr. Chase and Dr. Jimenez and a chest x-ray will be ordered to make sure there was no pneumothorax. There was informed consent and universal timeout. Nurse was in the room with the procedure. MMODL / IJN: [id number] /
[2019-03-24 03:43] LABS: Anisocytosis Slight; Basophils % (A) 0 %; Eosinophils % (A) 1 %; HCT 36.6 % (39.0-53.0); HGB 11.1 gm/dL (13.0-17.5); Hypochromasia Marked; Lymphocytes # (A) 0.4 k/uL (1.0-4.8); Lymphocytes % (A) 9 %; MCH 27.1 pg (25.0-35.0); MCHC 30.5 g/dL (31.0-37.0); MCV 88.9 fL (80.0-100.0); Mean Platelet Volume 7.6; Monocytes # (A) 0.3 k/uL (0-1.0); Monocytes % (A) 6 %; Neutrophils # (A) 3.7 k/uL (1.3-7.7); Neutrophils % (A) 82 %; Platelet Count 162 k/uL (150-450); RBC 4.12 m/uL (4.30-5.90); RDW 18.3 % (11.5-15.5); WBC 4.5 k/uL (3.8-10.6)
[2019-03-24 03:54] LABS: Albumin 2.5 g/dL (3.5-5.0); Calcium 7.6 mg/dL (8.4-10.2); Potassium 3.9 mmol/L (3.5-5.1); Total Bilirubin 0.3 mg/dL (0.2-1.3); Total Protein 5.5 g/dL (6.3-8.2)
[2019-03-24] MEDS: traMADol 50 MG TAB PO PRN (05:55)
--- NOTE | 2019-03-24 10:27 | P.PN ---
Subjective Progress Note Date: 03/24/19 Principal diagnosis: Dyspnea with bilateral pleural effusions and pulmonary embolism/DVT with new atrial flutter This a very pleasant 64-year-old gentleman who follows with Dr. Mcneill is his primary care physician. His history of hypertension and hyperlipidemia, previous smoking history. He also has stage IV melanoma and follows with Dr. [place] in the outpatient setting. He had treatment approximately 3 weeks ago. He presented to the emergency room yesterday with shortness of breath with atrial flutter with rapid ventricular response. He was initially given 6 mg of Benicar which slowed the rhythm down to identify the atrial flutter. He was surgically started on Cardizem and then seen and evaluated by radiology and he is currently on amiodarone at 0.5 mg/m. He is also on a heparin drip. Chest x- ray revealed bibasilar effusions. Echocardiogram reveals preserved left ventricular systolic function with ejection fraction 50-55%. There is moderate pulmonary hypertension. CT angiogram reveals a right lower lobe pulmonary embolism. There is bilateral pulmonary effusions and a small pericardial effusion. There are multiple chest, mediastinal and axillary masses present, suspect progression of his melanoma. Doppler of the lower extremities revealed bilateral DVT. Ultrasound of the chest reveals a 10 cm pocket on the left and a 7.4 cm pocket on the right. We will plan for a left-sided thoracentesis today. The patient is seen today 03/24/2019 in follow-up on the selective care unit. He is currently resting fairly comfortably in bed. Awake and alert. Reading easier today as compared to yesterday. Oxygen requirements have improved and he is on 5 L high flow nasal cannula. He is status post left-sided thoracentesis with 1.5 L of fairly clear yellow fluid removed. Cultures and cytology are pending. Protein 1.5. LDH 346. White count 4.5. Hemoglobin 11.1. Objective - Vital Signs Vital signs: Vital Signs Temp 98.2 F 03/24/19 03:05 Pulse 78 03/24/19 03:05 Resp 18 03/24/19 03:05 BP 99/57 03/24/19 03:05 Pulse Ox 95 03/24/19 03:05 Intake & Output 03/23/19 03/24/19 03/24/19 18:59 06:59 18:59 Intake Total 938.597 185.958 Output Total 300 Balance 638.597 185.958 Weight 98.4 kg 101 kg Intake: IV 73.5 Heparin Sod,Pork in 0.45% 73.5 NaCl 25,000 unit In 0.45 % NaCl 1 250ml.bag @ 18 UNITS/KG/HR 17.73 mls/hr IV .Q14H7M [facility] Rx#: [id number] Intake, IV Titration 145.097 185.958 Amount Heparin Sod,Pork in 0.45% 145.097 185.958 NaCl 25,000 unit In 0.45 % NaCl 1 250ml.bag @ 18 UNITS/KG/HR 17.73 mls/hr IV .Q14H7M [facility] Rx#: [id number] Oral 720 Output: Urine 300 Other: Voiding Method Bedside Commode Bedside Commode Bedpan # Voids 2 1 # Bowel Movements 1 1 - Exam GENERAL EXAM: Alert, fairly comfortable in no apparent distress. On 5 L high flow nasal cannula. HEAD: Normocephalic. EYES: Normal reaction of pupils, equal size. NOSE: Clear with pink turbinates. THROAT: No erythema or exudates. NECK: No masses, no JVD. CHEST: No chest wall deformity. LUNGS: Equal air entry with bibasilar crackles, diminished, dullness bilaterally. CVS: S1 and S2 normal with no audible murmur, regular rhythm. ABDOMEN: No hepatosplenomegaly, normal bowel sounds, no guarding or rigidity. SPINE: No scoliosis or deformity SKIN: No rashes CENTRAL NERVOUS SYSTEM: No focal deficits, tone is normal in all 4 extremities. EXTREMITIES: There is no peripheral edema. No clubbing, no cyanosis. Peripheral pulses are intact. - Labs CBC & Chem 7: 03/24/19 03:16 03/24/19 03:16 Labs: Abnormal Lab Results - Last 24 Hours (Table) 03/23/19 03/24/19 03/24/19 Range/Units 18:51 03:16 03:16 RBC 4.12 L (4.30-5.90) m/uL Hgb 11.1 L (13.0-17.5) gm/dL Hct 36.6 L (39.0-53.0) % MCHC 30.5 L (31.0-37.0) g/dL RDW 18.3 H (11.5-15.5) % Lymphocytes # 0.4 L (1.0-4.8) k/uL APTT 134.6 H* (22.0-30.0) sec BUN 35 H (9-20) mg/dL Calcium 7.6 L (8.4-10.2) mg/dL Alkaline Phosphatase 140 H (38-126) U/L Total Protein 5.5 L (6.3-8.2) g/dL Albumin 2.5 L (3.5-5.0) g/dL 03/24/19 Range/Units 03:16 RBC (4.30-5.90) m/uL Hgb (13.0-17.5) gm/dL Hct (39.0-53.0) % MCHC (31.0-37.0) g/dL RDW (11.5-15.5) % Lymphocytes # (1.0-4.8) k/uL APTT 48.1 H (22.0-30.0) sec BUN (9-20) mg/dL Calcium (8.4-10.2) mg/dL Alkaline Phosphatase (38-126) U/L Total Protein (6.3-8.2) g/dL Albumin (3.5-5.0) g/dL Microbiology - Last 24 Hours (Table) 03/23/19 12:30 Gram Stain - Preliminary Thoracic Fluid Body Fluid Culture - Preliminary 03/23/19 12:30 Acid Fast Bacilli Culture - Preliminary Thoracic Fluid 03/23/19 12:30 Fungal Culture - Preliminary Thoracic Fluid Assessment and Plan Assessment: Impression: #1 New onset atrial flutter with a rapid ventricular response, initiated on amiodarone, currently in sinus rhythm. On a heparin drip. #2 Bilateral pleural effusions. Status post left-sided thoracentesis on 03/23/2019 with 1.5 L of fairly clear yellow fluid removed. #3 Right lower lobe pulmonary embolism with bilateral lower extremity DVTs. On heparin drip. #4 Multiple chest, mediastinal and axillary masses. Progression of melanoma. #5 Acute hypoxic respiratory failure secondary to above. Currently on 15 L high flow nasal cannula. #6 Recurrent metastatic melanoma, initially treated in 2011 with wide excision. Recurrence in December 2018 and treated with Opdivo. Rest treatment approximately 3 weeks ago. #7 history of hypertension. #8 Hyperlipidemia. #9 History of previous tobacco dependence. Plan: The patient was seen and evaluated by Dr. Chase. The patient's oxygen requirements have improved status post thoracentesis of 1.5 L of fairly clear yellow fluid removed yesterday. He remains on IV diuretics. Protein 1.5. LDH 317. He remains on heparin drip. The patient's overall prognosis is quite guarded. CODE STATUS should be addressed. We'll continue to follow and make further recommendations based on his clinical status. I, the cosigning physician, performed a history & physical examination of the patient. Lungs sounds with bilateral crackles. Maintaining good O2 saturations in the 90s on 5 L high flow nasal cannula. I discussed the assessment and plan of care with my nurse practitioner, Yennifer Jimenez. I attest to the above note as dictated by her.
[2019-03-24] MEDS: FUROSEMIDE 10 MG/ML 4 ML VIAL IV SCH ×2 (10:49→16:35)
[2019-03-24] MEDS: FENOFIBRATE 160 MG TAB PO SCH (10:50)
[2019-03-24] MEDS: METOPROLOL SUCCINATE (ER) 50 MG TAB.ER.24H PO SCH (10:50)
[2019-03-24] MEDS: LORATADINE 10 MG TAB PO SCH (10:50)
[2019-03-24] MEDS: PANTOPRAZOLE 40 MG/10 ML VIAL IVP SCH (10:55)
--- NOTE | 2019-03-24 14:29 | P.PN ---
Subjective Progress Note Date: 03/24/19 This is a 64-year-old gentleman with history of hypertension, hyperlipidemia, nondiabetic, nonsmoker, history of melanoma, diagnosed in November, presents to the hospital with symptoms of progressive weakness with associated shortness of breath, lower extremity edema, PND and orthopnea. Patient also states that over the past one month he's been noticing his heart rate intermittently to go fast and irregular. Blood pressure on arrival here 146/96, heart rate 170, 96% on room air. Blood pressure this morning 114/70 with a heart rate of 90, 99% on 2 L of oxygen. White blood cell count 4.5, hemoglobin 11.2, platelet count 183. Sodium 139, potassium 4.3, BUN 30, creatinine 1.1. Magnesium 1.8. Troponin 0.031, BNP 11,900. Chest x-ray on presentation here showed bilateral pleural effusions. EKG on arrival here showed atrial flutter with a rapid ventricular response. Patient was initially given 6 mg of adenosine in the emergency room, then subsequently given Lanoxin and initiated on IV Cardizem as well as IV heparin, continues to be in atrial flutter this morning, his heart rate is in the 90 range. At the time of my examination this morning, patient is sitting up at the bedside, he still feel somewhat short of breath and quite weak. He was initiated on IV Lasix in the emergency room and is also on oral diuretics. 03/23/2019 She was seen and examined this morning, continues to be in normal sinus rhythm. He was found on ultrasound to have significant bilateral pleural effusions and underwent a thoracentesis today. He does state overall that he is feeling better today.he continues to be on IV amiodarone, the heparin had been discontinued to perform the thoracentesis. Patient was also found on CAT scan to havepulmonary embolism as well as multiple mediastinotomy and axillary masses, which suggests progression of his melanoma. Doppler of the lower extremities revealed bilateral DVT.like pressure today 100/50 with a heart rate in the 70s.White blood cell count 3.9, hemoglobin 11.2, platelet count 160. Sodium 141, potassium 3.6, BUN 32 and creatinine 1.3. 03/24/2019 The patient is seen today 03/24/2019 in follow-up on the selective care unit. He is currently resting fairly comfortably in bed. Awake and alert. Reading easier today as compared to yesterday. Oxygen requirements have improved and he is on 5 L high flow nasal cannula. He is status post left-sided thoracentesis with 1.5 L of fairly clear yellow fluid removed. Cultures and cytology are pending. Protein 1.5. LDH 346. White count 4.5. Hemoglobin 11.1. Continues to be in a normal sinus rhythm Objective - Vital Signs Vital signs: Vital Signs Temp 98.2 F 03/24/19 09:30 Pulse 74 03/24/19 09:30 Resp 18 03/24/19 09:30 BP 103/64 03/24/19 09:30 Pulse Ox 92 L 03/24/19 09:30 Intake & Output 03/23/19 03/24/19 03/24/19 18:59 06:59 18:59 Intake Total 938.597 185.958 Output Total 300 Balance 638.597 185.958 Weight 98.4 kg 101 kg Intake: IV 73.5 Heparin Sod,Pork in 0.45% 73.5 NaCl 25,000 unit In 0.45 % NaCl 1 250ml.bag @ 18 UNITS/KG/HR 17.73 mls/hr IV .Q14H7M CASEY Rx#: [id number] Intake, IV Titration 145.097 185.958 Amount Heparin Sod,Pork in 0.45% 145.097 185.958 NaCl 25,000 unit In 0.45 % NaCl 1 250ml.bag @ 18 UNITS/KG/HR 17.73 mls/hr IV .Q14H7M CASEY Rx#: [id number] Oral 720 Output: Urine 300 Other: Voiding Method Bedside Commode Bedside Commode Bedside Commode Bedpan Bedpan # Voids 2 1 # Bowel Movements 1 1 - Exam GENERAL EXAM: Alert, fairly comfortable in no apparent distress. On 15 L high flow nasal cannula. HEAD: Normocephalic. EYES: Normal reaction of pupils, equal size. NOSE: Clear with pink turbinates. THROAT: No erythema or exudates. NECK: No masses, no JVD. CHEST: No chest wall deformity. LUNGS: Equal air entry with bibasilar crackles left greater than right, diminished, dullness bilaterally. CVS: S1 and S2 normal with no audible murmur, regular rhythm. ABDOMEN: No hepatosplenomegaly, normal bowel sounds, no guarding or rigidity. SPINE: No scoliosis or deformity SKIN: No rashes CENTRAL NERVOUS SYSTEM: No focal deficits, tone is normal in all 4 extremities. EXTREMITIES: There is no peripheral edema. No clubbing, no cyanosis. Peripheral pulses are intact. - Labs CBC & Chem 7: 03/24/19 03:16 03/24/19 03:16 Labs: Abnormal Lab Results - Last 24 Hours (Table) 03/23/19 03/24/19 03/24/19 Range/Units 18:51 03:16 03:16 RBC 4.12 L (4.30-5.90) m/uL Hgb 11.1 L (13.0-17.5) gm/dL Hct 36.6 L (39.0-53.0) % MCHC 30.5 L (31.0-37.0) g/dL RDW 18.3 H (11.5-15.5) % Lymphocytes # 0.4 L (1.0-4.8) k/uL APTT 134.6 H* (22.0-30.0) sec BUN 35 H (9-20) mg/dL Calcium 7.6 L (8.4-10.2) mg/dL Alkaline Phosphatase 140 H (38-126) U/L Total Protein 5.5 L (6.3-8.2) g/dL Albumin 2.5 L (3.5-5.0) g/dL 03/24/19 Range/Units 03:16 RBC (4.30-5.90) m/uL Hgb (13.0-17.5) gm/dL Hct (39.0-53.0) % MCHC (31.0-37.0) g/dL RDW (11.5-15.5) % Lymphocytes # (1.0-4.8) k/uL APTT 48.1 H (22.0-30.0) sec BUN (9-20) mg/dL Calcium (8.4-10.2) mg/dL Alkaline Phosphatase (38-126) U/L Total Protein (6.3-8.2) g/dL Albumin (3.5-5.0) g/dL Microbiology - Last 24 Hours (Table) 03/23/19 12:30 Gram Stain - Preliminary Thoracic Fluid Body Fluid Culture - Preliminary 03/23/19 12:30 Acid Fast Bacilli Culture - Preliminary Thoracic Fluid 03/23/19 12:30 Fungal Culture - Preliminary Thoracic Fluid Assessment and Plan Plan: Assessment and plan #1 typical atrial flutter with rapid ventricular response #2 congestive heart failure, LV function unknown #3 myeloma, stage IV, diagnosed in November #4 hypertension #5 hyperlipidemia #6 significant bilateral pleural effusions, status post thoracentesis #7 pulmonary embolism with DVT Plan We will start the patient on oral amiodarone. If the pulmonary service does not plan on doing any further thoracentesis, we will start the patient on oral anticoagulation in the form of Eliquis. DNP note has been reviewed, I agree with a documented findings and plan of care. Patient was seen and examined.
[2019-03-24] MEDS: HEPARIN SOD,PORK IN 0.45% NACL 25,000 UNIT in 0.45% NACL 1 250ML.BAG IV SCH (16:09)
--- NOTE | 2019-03-24 17:05 | P.CON ---
Consult Note - . Consult date: 03/24/19 Assessment/Plan:: Patient is a 64-year-old male who was admitted with complications relating to metastatic malignant melanoma. This melanoma was first discovered in the right axillary area and further workup has demonstrated this melanoma to of metastas ize to the hilar area. He recently was diagnosed with a right lower lobe pulmonary embolism and is currently on intravenously administered heparin. Surgical consultation was requested for placement of a port for chemotherapeutic and other medication ministration. ALLERGIES: Patient has NO KNOWN DRUG ALLERGIES. Past medical history: Metastatic malignant melanoma, hypertension, dyslipidemia. Social history: No history of tobacco use. No history of alcohol dependence. Physical examination revealed a 64-year-old male who appeared ill although was awake and alert. Heart: Regular rate and rhythm. Lungs: Diminished breath sounds bilaterally at the bases. Abdomen: soft, and otherwise benign. Review of laboratory values demonstrates a hemoglobin of 11.2 and a's slight bump in the creatinine now measured 1.34. All other labs with the exception of PTT are normal. PTT is elevated secondary to intravenous heparin used. I reviewed with the patient and his family member who is at bedside the process of placement of a port and the uses of a port. The procedure, risk and benefits were discussed. All questions are answered to patient and family satisfaction. Impression: #1 malignant melanoma with metastatic disease (stage IV). #2 right lower lobe pulmonary embolism. #3 acute kidney injury. #4 mild anemia. #5 history of dyslipidemia. #6 history of hypertension. Plan: Patient will be scheduled for patient of port tomorrow. Heparin will be held 3- 4 hours prior to scheduled time of surgery. Patient understands that Dr. Grey will be performing the procedure.
--- NOTE | 2019-03-24 17:58 | P.PN ---
Subjective Progress Note Date: 03/24/19 This is a 64-year-old gentleman recently diagnosed with stage IV melanoma of clavicle, right axilla on immunotherapy over the last 3 months, hypertension, hyperlipidemia presented to the ER with complaints of worsening weakness accompanied by increasing shortness of breath and complaints of irregular heart beat. About a week ago was prescribed a walker. Also complains of right swollen hand weeping 1 week with fluctuating spasms-denies trauma and bilateral lower extremity edema. Reports weakness initially started after beginning on immunotherapy. Denies chest pain, palpitations. Denies lightheadedness, dizziness or syncope . No focal deficits. Denies fever or chills .EKG reported atrial flutter with RVR, received adenosine, digoxin with nonspecific ST configuration and placed on IV Cardizem and heparin drips. Chest x-ray reporting by basilar atelectasis, possible bronchopneumonia, prominent pleural effusions bilaterally, greater on the left. BNP 77858. Tachypneic, maintaining O2 sats in the high 90s on 2 L nasal cannula. Afebrile, normal WBC. Cardiology and oncology consulted. 03/23/2019 currently maintained on amiodarone and heparin drips. evaluated by both pulmonary and oncology with recommendations noted and appreciated. Chest x-ray reported by bibasilar pleural effusions. Chest ultrasound reporting 10 cm pocket on the left and some 0.4 cm pocket on the right, left-sided thoracentesis pending. Echo reporting preserved LV function, EF to 55%, moderate pulmonary hypertension, moderate tricuspid regurgitation, moderate, generalized pericardial effusion. CT reporting right lower lobe pulmonary embolism, bilateral pulmonary effusions and small pericardial effusion, enlarged thyroid. Multiple chest, mediastinal and axillary masses present previously -suspected progression of melanoma. Doppler of the lower extremities reporting bilateral DVT. Doppler of upper extremities reporting negative for DVT of right and left arm, cephalic veins not seen secondary to the edema, mass seen near right subclavian 6 cm .Requiring 15 L high flow nasal cannula to maintain O2 sats in the 90s. Continues on Lasix IV push, Creatinine increased to 1.36. K 3.6. Complains of left ear pain; examined by Dr. Alas with otoscope reporting fluid behind eardrum-patient currently on Claritin. 03/24/2019 breathing easier this morning. Diuresing well on Lasix IV push. Status post left-sided thoracentesis with 1.5 L drained-clear yellow. Cytology/cultures pending. maintaining O2 sats in the high 90s on 5 L nasal cannula. Currently declining Metaport. Discuss further with family and patient at bedside, rationale, need. Telemetry sinus rhythm on Toprol. Creatinine 1.12. Afebrile, normal WBC. Objective - Vital Signs Vital signs: Vital Signs Temp 98.2 F 03/24/19 09:30 Pulse 74 03/24/19 09:30 Resp 18 03/24/19 09:30 BP 103/64 03/24/19 09:30 Pulse Ox 92 L 03/24/19 09:30 Intake & Output 03/23/19 03/24/19 03/24/19 18:59 06:59 18:59 Intake Total 938.597 185.958 Output Total 300 Balance 638.597 185.958 Weight 98.4 kg 101 kg Intake: IV 73.5 Heparin Sod,Pork in 0.45% 73.5 NaCl 25,000 unit In 0.45 % NaCl 1 250ml.bag @ 18 UNITS/KG/HR 17.73 mls/hr IV .Q14H7M [facility] Rx#: [id number] Intake, IV Titration 145.097 185.958 Amount Heparin Sod,Pork in 0.45% 145.097 185.958 NaCl 25,000 unit In 0.45 % NaCl 1 250ml.bag @ 18 UNITS/KG/HR 17.73 mls/hr IV .Q14H7M [facility] Rx#: [id number] Oral 720 Output: Urine 300 Other: Voiding Method Bedside Commode Bedside Commode Bedside Commode Bedpan Bedpan # Voids 2 1 # Bowel Movements 1 1 - Exam VITAL SIGNS: As above GENERAL: Sitting up in bed, no acute distress HEENT: Normocephalic, Conjunctivae normal. Pupils equal NECK: Supple, No JVD. CARDIOVASCULAR: S1, S2, irregular, positive systolic murmur RESPIRATION: Breath sounds diminished in the bases, fine bibasilar crackles ABDOMEN: Soft, nontender . Distended. Possible mild ascites No guarding. no masses palpable. Possible ascites.Bowel sounds heard. EXTREMITIES: Bilateral upper and lower extremity edema, PSYCHIATRY: Alert and oriented X3, mood and affect normal. NERVOUS SYSTEM: Cranial N 2-12 grossly normal. Moves all 4 limbs. Diffuse weakness No focal deficits. Strength and sensation grossly intact.. Skin: No rash, right clavicle/right axilla palpable mass. Right hand weeping. - Labs CBC & Chem 7: 03/24/19 03:16 03/24/19 03:16 Labs: Abnormal Lab Results - Last 24 Hours (Table) 03/23/19 03/24/19 03/24/19 Range/Units 18:51 03:16 03:16 RBC 4.12 L (4.30-5.90) m/uL Hgb 11.1 L (13.0-17.5) gm/dL Hct 36.6 L (39.0-53.0) % MCHC 30.5 L (31.0-37.0) g/dL RDW 18.3 H (11.5-15.5) % Lymphocytes # 0.4 L (1.0-4.8) k/uL APTT 134.6 H* (22.0-30.0) sec BUN 35 H (9-20) mg/dL Calcium 7.6 L (8.4-10.2) mg/dL Alkaline Phosphatase 140 H (38-126) U/L Total Protein 5.5 L (6.3-8.2) g/dL Albumin 2.5 L (3.5-5.0) g/dL 03/24/19 Range/Units 03:16 RBC (4.30-5.90) m/uL Hgb (13.0-17.5) gm/dL Hct (39.0-53.0) % MCHC (31.0-37.0) g/dL RDW (11.5-15.5) % Lymphocytes # (1.0-4.8) k/uL APTT 48.1 H (22.0-30.0) sec BUN (9-20) mg/dL Calcium (8.4-10.2) mg/dL Alkaline Phosphatase (38-126) U/L Total Protein (6.3-8.2) g/dL Albumin (3.5-5.0) g/dL Microbiology - Last 24 Hours (Table) 03/23/19 12:30 Gram Stain - Preliminary Thoracic Fluid Body Fluid Culture - Preliminary 03/23/19 12:30 Acid Fast Bacilli Culture - Preliminary Thoracic Fluid 03/23/19 12:30 Fungal Culture - Preliminary Thoracic Fluid Assessment and Plan Assessment: Atrial flutter with RVR, new onset -Acute CHF exacerbation, EF currently unknown, echo pending -Right lower lobe PE -Bilateral lower extremity DVTs -Bilateral pleural effusions, greater on the left -Multiple chest, mediastinal and axillary masses, possibly metastasis, progression of melanoma -Right subclavian mass 6 cm -Bibasilar atelectasis, possible bronchopneumonia -Generalized weakness, gait dysfunction-now using a walker -Recently diagnosed recurrent melanoma stage IV, on immunotherapy -Hypertension -Hyperlipidemia -Hypoalbuminemia -History of nicotine dependence -Moderate pulmonary hypertension -Moderate tricuspid regurgitation -Moderate, generalized pericardial effusion per echo -Acute hypoxic respiratory failure, multifactorial secondary to all the above, currently on 15 L high flow nasal cannula Plan: Continue current medication regime , beta pee, monitoring and symptomatic treatment. Discussed the need/rationale for port a cath, consent pending. Continues on Lasix IV push, heparin drip. Close monitoring of renal function, electrolytes with repeat labs ordered for a.m. discussed patient's need for subacute rehab at discharge with both patient and family, social work consulted. Prognosis guarded given multiple complex medical issues. The impression and plan of care has been dictated as directed. : I performed a history and examination of this patient, discussed the same with the dictator. I agree with the dictator's note ,documented as a scribe. Any additional findings or plans will be noted. Time taken: 35 minutes
[2019-03-24] MEDS: AMIODARONE 200 MG TAB PO SCH (20:09)
[2019-03-25] MEDS: FUROSEMIDE 10 MG/ML 4 ML VIAL IV SCH ×4 (01:06→14:48)
[2019-03-25] MEDS: traMADol 50 MG TAB PO PRN ×2 (01:51→22:22)
[2019-03-25] MEDS: ALPRAZolam 0.5 MG TAB PO PRN ×2 (01:53→22:23)
[2019-03-25] MEDS: HEPARIN SOD,PORK IN 0.45% NACL 25,000 UNIT in 0.45% NACL 1 250ML.BAG IV SCH ×3 (07:39→17:56)
[2019-03-25] MEDS: LACTATED RINGERS 1,000 ML IV SCH ×2 (07:40→14:45)
[2019-03-25 08:13] LABS: Anisocytosis Slight; Basophils % (A) 0 %; Eosinophils % (A) 1 %; HCT 38.7 % (39.0-53.0); HGB 11.6 gm/dL (13.0-17.5); Hypochromasia Marked; Lymphocytes # (A) 0.4 k/uL (1.0-4.8); Lymphocytes % (A) 8 %; MCH 26.9 pg (25.0-35.0); MCV 89.7 fL (80.0-100.0); Mean Platelet Volume 7.4; Monocytes # (A) 0.2 k/uL (0-1.0); Monocytes % (A) 5 %; Neutrophils # (A) 4.5 k/uL (1.3-7.7); Neutrophils % (A) 86 %; Platelet Count 134 k/uL (150-450); RBC 4.32 m/uL (4.30-5.90); RDW 18.7 % (11.5-15.5); WBC 5.2 k/uL (3.8-10.6)
[2019-03-25 08:24] LABS: African American GFR (CKD) >90 (>60 ml/min/1.73 sqM); Anion Gap 8 mmol/L; Blood Urea Nitrogen 30 mg/dL (9-20); Calcium 7.5 mg/dL (8.4-10.2); Carbon Dioxide 27 mmol/L (22-30); Chloride 107 mmol/L (98-107); Glucose 103 mg/dL (74-99); Non-African American GFR(CKD) 90 (>60 ml/min/1.73 sqM); Potassium 3.6 mmol/L (3.5-5.1); Sodium 142 mmol/L (137-145)
[2019-03-25] MEDS: METOPROLOL SUCCINATE (ER) 50 MG TAB.ER.24H PO SCH (09:08)
[2019-03-25] MEDS: AMIODARONE 200 MG TAB PO SCH ×2 (09:08→22:22)
[2019-03-25] MEDS ORDERED: IV FLUID CONTINUATION 1,000 ML IV ONE (09:26)
[2019-03-25] MEDS ORDERED: KETAMINE 10 MG/ML 20 ML VIAL ONE (09:38)
[2019-03-25] MEDS ORDERED: fentaNYL (PF) 50 MCG/ML 2 ML AMP ONE (09:38)
[2019-03-25] MEDS ORDERED: MIDAZOLAM 2 MG/2 ML VIAL ONE (09:38)
[2019-03-25] MEDS ORDERED: LIDOCAINE 1% INJ 10MG/ML (20 ML MDV) SQ ONE (09:45)
--- NOTE | 2019-03-25 10:52 | FL ---
EXAMINATION TYPE: FL guided central line placemt DATE OF EXAM: 03/25/2019 CLINICAL HISTORY: Port-A-Cath placement TECHNIQUE: Fluoroscopy. COMPARISON: None. FINDINGS: Fluoroscopic guidance was provided during procedure performed by Dr. Alas. A total of 12 seconds of fluoroscopic time was utilized during the procedure and 1 spot image was acquired dem onstrating deep insertion of a left-sided Port-A-Cath. IMPRESSION: As Above.
--- NOTE | 2019-03-25 11:03 | P.OP ---
Date of Procedure: 03/25/19 Description of Procedure: Preoperative diagnosis: Metastatic melanoma, hypertension, acute kidney injury, DVT with PE, poor peripheral IV access Postoperative diagnosis: Same Procedure: [Placement of chest wall Mediport via left internal jugular vein access with ultrasound and fluoroscopic guidance] Surgeon: Izabela Grey D.O. Anesthesia: Monitored anesthesia care with local 1% EBL: 5 mL Drains: None, XCELA plus port, 6-Liberian placed Complications: None Condition: Stable Operative indication and findings: The patient is a 64-year-old male with findings of metastatic melanoma along with poor peripheral venous access. He was seen by the oncologist who recommended chemotherapy. Given this along with his poor peripheral IV access, it was decided that he would be best served with a port placement. He does have areas of chest wall nodules and a string of tumor on the right clavicle regular area. There is a left chest wall nodule as well. Risks and benefits were discussed including but not limited to bleeding, infection, injury to the lung, injury to the blood vessels. The patient seeming ly understood and was willing to proceed. Procedure in detail: The patient was taken to the operative suite and placed in supine position the bilateral neck and chest was prepped and draped in usual s terile fashion. A preprocedure timeout was performed, all parties were in agreement. Monitored anesthesia care was performed, and once this was adequate, the procedure was initiated. The ultrasound was utilized, given his areas of metastatic melanoma, it was decided that the best place for the port would be on the left, lateral and inferior to the nodule in this area as the entirety of the right clavicle had a metastatic chain overlying it and would be prohibitive of tunneling the catheter. The ultrasound was utilized, the internal jugular was identified on the left. It was widely patent. The patient was placed in Trendelenburg position. The skin overlying was anesthetized. Utilizing a multipurpose needle, the internal jugular was accessed and a guidewire was placed. This was left in place at that time. A previously decided position for the pocket was anesthetized. The skin overlying was incised and carried down into the subcutaneous tissues. A pocket was created via blunt dissection and found to be of adequate size. At that point the catheter was tunneled through the previously anesthetized area. The tear-away sheath was placed over the wire. The catheter was advanced. It was confirmed into the cavoatrial junction. It was cut to size at the port site and attached the port. The port was sutured in place to the chest wall utilizing 3-0 Prolene in interrupted fa shion. The tear-away sheath was completely removed. The port aspirated and flushed freely. Final imaging did reveal extended length of the catheter itself with the tip in the IVC. The [place] needle was left engaged and tubing was attached. The incision was then reapproximated with interrupted sutures of 3-0 Vicryl in deep dermal layer and running 4-0 Monocryl in subcuticular fashion. The neck of the skin at the jugular was also reapproximated with 4-0 Monocryl. Dressings were applied. A post procedure chest x-ray is pending. The patient was transported to PACU in stable condition having tolerated the procedure well
--- NOTE | 2019-03-25 12:04 | XR ---
EXAMINATION TYPE: XR chest 1V portable DATE OF EXAM: 03/25/2019 COMPARISON: Prior chest x-ray 03/23/2019 HISTORY: Status post port placement TECHNIQUE: Single frontal view of the chest is obtained. FINDINGS: Left-sided Port-A-Cath has been placed in the interval. Distal tip not included on the exa m, the catheter courses inferior to the lower extent of the film and likely into the inferior vena ca va. There is no pneumothorax. Bibasilar increased density is present, there is mediastinal mass prese nt. IMPRESSION: Catheter coursing as described. No evident pneumothorax status post Port-A-Cath placemen t.
--- NOTE | 2019-03-25 12:04 | P.PN ---
Subjective Progress Note Date: 03/25/19 This is a 64-year-old gentleman with history of hypertension, hyperlipidemia, nondiabetic, nonsmoker, history of melanoma, diagnosed in November, presents to the hospital with symptoms of progressive weakness with associated shortness of breath, lower extremity edema, PND and orthopnea. Patient also states that over the past one month he's been noticing his heart rate intermittently to go fast and irregular. Blood pressure on arrival here 146/96, heart rate 170, 96% on room air. Blood pressure this morning 114/70 with a heart rate of 90, 99% on 2 L of oxygen. White blood cell count 4.5, hemoglobin 11.2, platelet count 183. Sodium 139, potassium 4.3, BUN 30, creatinine 1.1. Magnesium 1.8. Troponin 0.031, BNP 11,900. Chest x-ray on presentation here showed bilateral pleural effusions. EKG on arrival here showed atrial flutter with a rapid ventricular response. Patient was initially given 6 mg of adenosine in the emergency room, then subsequently given Lanoxin and initiated on IV Cardizem as well as IV heparin, continues to be in atrial flutter this morning, his heart rate is in the 90 range. At the time of my examination this morning, patient is sitting up at the bedside, he still feel somewhat short of breath and quite weak. He was initiated on IV Lasix in the emergency room and is also on oral diuretics. 03/23/2019 She was seen and examined this morning, continues to be in normal sinus rhythm. He was found on ultrasound to have significant bilateral pleural effusions and underwent a thoracentesis today. He does state overall that he is feeling better today.he continues to be on IV amiodarone, the heparin had been discontinued to perform the thoracentesis. Patient was also found on CAT scan to havepulmonary embolism as well as multiple mediastinotomy and axillary masses, which suggests progression of his melanoma. Doppler of the lower extremities revealed bilateral DVT.like pressure today 100/50 with a heart rate in the 70s.White blood cell count 3.9, hemoglobin 11.2, platelet count 160. Sodium 141, potassium 3.6, BUN 32 and creatinine 1.3. 03/24/2019 The patient is seen today 03/24/2019 in follow-up on the selective care unit. He is currently resting fairly comfortably in bed. Awake and alert. Reading easier today as compared to yesterday. Oxygen requirements have improved and he is on 5 L high flow nasal cannula. He is status post left-sided thoracentesis with 1.5 L of fairly clear yellow fluid removed. Cultures and cytology are pending. Protein 1.5. LDH 346. White count 4.5. Hemoglobin 11.1. Continues to be in a normal sinus rhythm 03/25/2019 Patient seen and examined this morning, scheduled for Mediport placement today. Continues to be in a normal sinus rhythm. Blood pressure 110/60 with a heart rate in the 80s, 96% on 4 L of oxygen. White blood cell count 5.2, hemoglobin 11.6, platelet count 134. Sodium 142, potassium 3.6, BUN 30 and creatinine 0.9. We will continue the amiodarone 400 mg one tablet by mouth twice a day for one week, then decrease to 200 mg 3 times a day for one week, then 200 mg by mouth twice a day. Objective - Vital Signs Vital signs: Vital Signs Temp 96.7 F L 03/25/19 10:51 Pulse 89 03/25/19 11:32 Resp 18 03/25/19 11:32 BP 111/64 03/25/19 11:32 Pulse Ox 96 03/25/19 11:32 Intake & Output 03/24/19 03/25/19 03/25/19 18:59 06:59 18:59 Intake Total 1174.042 200 450 Output Total 500 350 Balance 674.042 200 100 Weight 96.5 kg Intake: IV 450 Intake, IV Titration 64.042 Amount Heparin Sod,Pork in 0.45% 64.042 NaCl 25,000 unit In 0.45 % NaCl 1 250ml.bag @ 18 UNITS/KG/HR 17.73 mls/hr IV .Q14H7M [facility] Rx#: [id number] Oral 1110 200 Output: Urine 500 350 Other: Voiding Method Bedside Commode Bedside Commode Bedpan Bedpan # Voids 1 # Bowel Movements 1 - Exam GENERAL EXAM: Alert, fairly comfortable in no apparent distress. On 15 L high flow nasal cannula. HEAD: Normocephalic. EYES: Normal reaction of pupils, equal size. NOSE: Clear with pink turbinates. THROAT: No erythema or exudates. NECK: No masses, no JVD. CHEST: No chest wall deformity. LUNGS: Equal air entry with bibasilar crackles left greater than right, diminished, dullness bilaterally. CVS: S1 and S2 normal with no audible murmur, regular rhythm. ABDOMEN: No hepatosplenomegaly, normal bowel sounds, no guarding or rigidity. SPINE: No scoliosis or deformity SKIN: No rashes CENTRAL NERVOUS SYSTEM: No focal deficits, tone is normal in all 4 extremities. EXTREMITIES: There is no peripheral edema. No clubbing, no cyanosis. Peripheral pulses are intact. - Labs CBC & Chem 7: 03/25/19 07:43 03/25/19 07:43 Labs: Abnormal Lab Results - Last 24 Hours (Table) 03/24/19 03/25/19 03/25/19 Range/Units 17:46 07:43 07:43 Hgb 11.6 L (13.0-17.5) gm/dL Hct 38.7 L (39.0-53.0) % MCHC 30.0 L (31.0-37.0) g/dL RDW 18.7 H (11.5-15.5) % Plt Count 134 L (150-450) k/uL Lymphocytes # 0.4 L (1.0-4.8) k/uL APTT 59.7 H (22.0-30.0) sec BUN 30 H (9-20) mg/dL Glucose 103 H (74-99) mg/dL Calcium 7.5 L (8.4-10.2) mg/dL Microbiology - Last 24 Hours (Table) 03/23/19 12:30 Gram Stain - Preliminary Thoracic Fluid Body Fluid Culture - Preliminary 03/23/19 12:30 Acid Fast Bacilli Smear - Final Thoracic Fluid Acid Fast Bacilli Culture - Preliminary Assessment and Plan Plan: Assessment and plan #1 typical atrial flutter with rapid ventricular response #2 congestive heart failure, LV function unknown #3 myeloma, stage IV, diagnosed in November #4 hypertension #5 hyperlipidemia #6 significant bilateral pleural effusions, status post thoracentesis #7 pulmonary embolism with DVT Plan We will continue with oral amiodarone, taper dose as indicated. Patient is scheduled today to have a MediPort placed, once okayed by them, patient will need a reinitiated on oral anticoagulation. DNP note has been reviewed, I agree with a documented findings and plan of care. Patient was seen and examined.
[2019-03-25] MEDS: FENOFIBRATE 160 MG TAB PO SCH (13:38)
[2019-03-25] MEDS: LORATADINE 10 MG TAB PO SCH (13:38)
--- NOTE | 2019-03-25 13:39 | P.PN ---
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 About a week ago was prescribed a walker. Also complains of right swollen hand weeping 1 week with fluctuating spasms-denies trauma and bilateral lower extremity edema. Reports weakness initially started after beginning on immunotherapy. Denies chest pain, palpitations. Denies lightheadedness, dizziness or syncope . No focal deficits. Denies fever or chills .EKG reported atrial flutter with RVR, received adenosine, digoxin with nonspecific ST configuration and placed on IV Cardizem and heparin drips. Chest x-ray reporting by basilar atelectasis, possible bronchopneumonia, prominent pleural effusions bilaterally, greater on the left. BNP 34844. Tachypneic, maintaining O2 sats in the high 90s on 2 L nasal cannula. Afebrile, normal WBC. Cardiology and oncology consulted. 03/23/2019 currently maintained on amiodarone and heparin drips. evaluated by both pulmonary and oncology with recommendations noted and appreciated. Chest x-ray reported by bibasilar pleural effusions. Chest ultrasound reporting 10 cm pocket on the left and some 0.4 cm pocket on the right, left-sided thoracentesis pending. Echo reporting preserved LV function, EF to 55%, moderate pulmonary hypertension, moderate tricuspid regurgitation, moderate, generalized pericardial effusion. CT reporting right lower lobe pulmonary embolism, bilateral pulmonary effusions and small pericardial effusion, enlarged thyroid. Multiple chest, mediastinal and axillary masses present previously -suspected progression of melanoma. Doppler of the lower extremities reporting bilateral DVT. Doppler of upper extremities reporting negative for DVT of right and left arm, cephalic veins not seen secondary to the edema, mass seen near right subclavian 6 cm .Requiring 15 L high flow nasal cannula to maintain O2 sats in the 90s. Continues on Lasix IV push, Creatinine increased to 1.36. K 3.6. Complains of left ear pain; examined by Dr. Alas with otoscope reporting fluid behind eardrum-patient currently on Claritin. 03/24/2019 breathing easier this morning. Diuresing well on Lasix IV push. Status post left-sided thoracentesis with 1.5 L drained-clear yellow. Cytology/cultures pending. maintaining O2 sats in the high 90s on 5 L nasal cannula. Currently declining Metaport. Discuss further with family and patient at bedside, rationale, need. Telemetry sinus rhythm on Toprol. Creatinine 1.12. Afebrile, normal WBC. 03/25/2019 scheduled for port placement this morning.anticoagulation on hold .VSS. 96% on 2 L nasal cannula. Renal function improving, creatinine 0.9. Afebrile, normal WBC. Telemetry sinus rhythm. Diuresing well on Lasix IV push with 24-hour I&O reflecting a decrease in weight . Objective - Vital Signs Vital signs: Vital Signs Temp 96.6 F L 03/25/19 09:26 Pulse 63 03/25/19 09:26 Resp 20 03/25/19 09:26 BP 114/63 03/25/19 09:26 Pulse Ox 91 L 03/25/19 09:26 Intake & Output 03/24/19 03/25/19 03/25/19 18:59 06:59 18:59 Intake Total 1174.042 200 400 Output Total 500 350 Balance 674.042 200 50 Weight 96.5 kg Intake: IV 400 Intake, IV Titration 64.042 Amount Heparin Sod,Pork in 0.45% 64.042 NaCl 25,000 unit In 0.45 % NaCl 1 250ml.bag @ 18 UNITS/KG/HR 17.73 mls/hr IV .Q14H7M [facility] Rx#: [id number] Oral 1110 200 Output: Urine 500 350 Other: Voiding Method Bedside Commode Bedside Commode Bedpan Bedpan # Voids 1 # Bowel Movements 1 - Exam VITAL SIGNS: As above GENERAL: Sitting up in bed, no acute distress HEENT: Normocephalic, Conjunctivae normal. Pupils equal. Oral mucosa dry NECK: Supple, No JVD. CARDIOVASCULAR: S1, S2, regular, positive systolic murmur RESPIRATION: Breath sounds diminished in the bases, fine bibasilar crackles ABDOMEN: Soft, nontender . Distended. No guarding. no masses palpable. Bowel sounds heard. EXTREMITIES: Improving Bilateral upper and lower extremity edema, PSYCHIATRY: Alert and oriented X3, mood and affect normal. NERVOUS SYSTEM: Cranial N 2-12 grossly normal. Moves all 4 limbs. Diffuse weakness No focal deficits. Skin: No rash, right clavicle/right axilla palpable mass. Right hand dressing clean dry and intact - Labs CBC & Chem 7: 03/25/19 07:43 03/25/19 07:43 Labs: Abnormal Lab Results - Last 24 Hours (Table) 03/24/19 03/25/19 03/25/19 Range/Units 17:46 07:43 07:43 Hgb 11.6 L (13.0-17.5) gm/dL Hct 38.7 L (39.0-53.0) % MCHC 30.0 L (31.0-37.0) g/dL RDW 18.7 H (11.5-15.5) % Plt Count 134 L (150-450) k/uL Lymphocytes # 0.4 L (1.0-4.8) k/uL APTT 59.7 H (22.0-30.0) sec BUN 30 H (9-20) mg/dL Glucose 103 H (74-99) mg/dL Calcium 7.5 L (8.4-10.2) mg/dL Microbiology - Last 24 Hours (Table) 03/23/19 12:30 Gram Stain - Preliminary Thoracic Fluid Body Fluid Culture - Preliminary 03/23/19 12:30 Acid Fast Bacilli Smear - Final Thoracic Fluid Acid Fast Bacilli Culture - Preliminary Assessment and Plan Assessment: Atrial flutter with RVR, new onset -Acute CHF exacerbation, EF currently unknown, echo pending -Right lower lobe PE -Bilateral lower extremity DVTs -Bilateral pleural effusions, greater on the left -Multiple chest, mediastinal and axillary masses, possibly metastasis, progression of melanoma -Right subclavian mass 6 cm -Bibasilar atelectasis, possible bronchopneumonia -Generalized weakness, gait dysfunction-now using a walker -Recently diagnosed recurrent melanoma stage IV, on immunotherapy -Hypertension -Hyperlipidemia -Hypoalbuminemia -History of nicotine dependence -Moderate pulmonary hypertension -Moderate tricuspid regurgitation -Moderate, generalized pericardial effusion per echo -Acute hypoxic respiratory failure, multifactorial secondary to all the above, currently on 15 L high flow nasal cannula Plan: Continue current medication regime , beta pee, monitoring and symptomatic treatment. Port placement pending. Anticoagulation on hold for procedure. Amiodarone taper as per cardiology. Continue diuretics as per cardiology. Close monitoring of renal function, electrolytes with repeat labs ordered for a.m.Subacute versus inpatient rehab at discharge. Dr. Ruiz consulted .Prognosis guarded given multiple complex medical issues. The impression and plan of care has been dictated as directed. : I performed a history and examination of this patient, discussed the same with the dictator. I agree with the dictator's note ,documented as a scribe. Any additional findings or plans will be noted. Time taken: 35 minutes
--- NOTE | 2019-03-25 14:40 | P.CONS ---
History of Present Illness - Chief Complaint Medical debility - History of Present Illness I had the opportunity to see patient for inpatient rehab consultation with regard to medical debility. Patient admitted to [facility] March 21 with shortness of breath and lower extremity edema. Known melanoma grade 4. Seen by cardiology for CHF in atrial flutter with rapid ventricular response. Seen by Dr. Quintanilla for the melanoma, chemotherapy started and port placed. Seen by Dr. Chase who did thoracentesis for effusion. Chest x-rays followed for left pleural effusion, right lung consolidation and known mediastinal mass and other masses. Lower extremity Doppler negative for DVT.'s chest CTA demonstrates ri ght lower lobe PE. OT reports minimal assistance for upper dressing and maximal assistance for lower dressing and bathing. Unable to assess toileting her transfers. PT prescribed. PT and OT have been having difficulty seeing patient due to testing. Previous functional history as elicited from patient and corroborated by : 64-year-old right-handed white male who is lives and 2 floor home with . Both retired. does cooking, laundry, driving. She's been doing this for the last several months due to patient's melanoma. Patient independent with standing shower and gait without device. For the last week he's been doing a sitdown shower and using a roller walker or 4 wheeled walker for gait. Denies tobacco or alcohol. PMD is Dr. Alas or [facility]. Family history mother with cancer in father with hypertension. Review of Systems Review of systems: ENT: Denies sneezes or discharge. Eyes: Denies discharge or photophobia. Cardiac: Denies chest pain or palpitation. Lower extremity edema. Pulmonary: Moderate shortness of breath. Gastrointestinal: Denies nausea, emesis, constipation, diarrhea. Genitourinary: Denies discharge or frequency. Musculoskeletal: Denies muscle or bone aches. Neurologic: Generalized weakness. Endocrine: Denies shakes or sweats. Oncology: Denies cancers. Dermatologic: Denies rash, itching, pruritus. ALLERGY/immunology: Denies sneezes, rashes. Past Medical History Past Medical History: Hyperlipidemia, Hypertension Additional Past Medical History / Comment(s): stage 4 melanoma History of Any Multi-Drug Resistant Organisms: None Reported Additional Past Surgical History / Comment(s): 2010 - melanoma - 12 inch scar on back. Past Anesthesia/Blood Transfusion Reactions: No Reported Reaction Past Psychological History: No Psychological Hx Reported Smoking Status: Never smoker Past Alcohol Use History: Occasional Additional Past Alcohol Use History / Comment(s): quit 1979 Past Drug Use History: None Reported - Past Family History Mother Family Medical History: Cancer Additional Family Medical History / Comment(s): brain cancer Medications and Allergies Home Medications Medication Instructions Recorded Confirmed Type Fenofibrate [Lofibra] 160 mg PO DAILY 12/20/18 03/21/19 History ALPRAZolam [Xanax] 0.5 mg PO BID PRN 03/21/19 03/21/19 History Furosemide [Lasix] 20 mg PO DAILY 03/21/19 03/21/19 History Allergies Allergy/AdvReac Type Severity Reaction Status Date / Time No Known Allergies Allergy Verified 03/21/19 19:52 Physical Exam Vitals: Vital Signs Temp Pulse Pulse Resp BP Pulse Ox 03/25/19 11:32 89 18 111/64 96 03/25/19 11:15 89 18 107/64 98 03/25/19 10:51 96.7 F L 88 16 102/66 99 03/25/19 09:26 96.6 F L 63 20 114/63 91 L 03/25/19 09:00 97.9 F 63 18 114/63 91 L 03/25/19 05:45 98.6 F 106 H 16 106/58 96 03/25/19 04:51 98 F 78 16 114/64 94 L 03/25/19 03:58 76 03/25/19 01:00 76 116/60 03/25/19 00:00 98.9 F 78 16 96/59 94 L 03/24/19 21:27 95 03/24/19 20:00 98.1 F 78 16 104/64 94 L 03/24/19 16:05 75 16 105/63 94 L Intake and Output 03/24/19 03/25/19 03/25/19 22:59 06:59 14:59 Intake Total 1110 200 672 Output Total 200 350 Balance 910 200 322 Intake: IV 450 Oral 1110 200 222 Output: Urine 200 350 Other: Voiding Method Bedside Commode Bedside Commode Bedpan Bedpan # Voids 1 1 # Bowel Movements 1 Weight 96.5 kg Skin: Good color, texture, turgor. General: Medium build and sleepy, comfortable appearance. Head: Normocephalic, atraumatic. Eyes: Symmetric. Pupils equal round. Ears: Symmetric. Hearing within normal limits. Mouth: Clear. Neck: Supple. Carotid without bruit. Cardiac: Regular rate and rhythm. Lungs: Clear anteriorly and posteriorly. Abdomen: Soft active nontender. Extremities: Normal tone. Lower extremity edema. Neurological: Mental status: Alert, cooperative, pleasant. Cranial nerves: Symmetric facial tone and trapezius. Motor: Poor movement arms and poor minus legs. Sensation: Intact throughout. DTRs: Symmetric and equal throughout. Mobility: Requires physical assistance for bed mobility. Results CBC & Chem 7: 03/25/19 07:43 03/25/19 07:43 Labs: Abnormal Lab Results - Last 24 Hours (Table) 03/24/19 03/25/19 03/25/19 Range/Units 17:46 07:43 07:43 Hgb 11.6 L (13.0-17.5) gm/dL Hct 38.7 L (39.0-53.0) % MCHC 30.0 L (31.0-37.0) g/dL RDW 18.7 H (11.5-15.5) % Plt Count 134 L (150-450) k/uL Lymphocytes # 0.4 L (1.0-4.8) k/uL APTT 59.7 H (22.0-30.0) sec BUN 30 H (9-20) mg/dL Glucose 103 H (74-99) mg/dL Calcium 7.5 L (8.4-10.2) mg/dL Microbiology - Last 24 Hours (Table) 03/23/19 12:30 Gram Stain - Preliminary Thoracic Fluid Body Fluid Culture - Preliminary 03/23/19 12:30 Acid Fast Bacilli Smear - Final Thoracic Fluid Acid Fast Bacilli Culture - Preliminary Assessment and Plan (1) Atrial flutter with rapid ventricular response Current Visit: Yes Status: Acute Code(s): I48.92 - UNSPECIFIED ATRIAL FLUTTER SNOMED Code(s): 1260355 (2) CHF (congestive heart failure) Current Visit: Yes Status: Acute Code(s): I50.9 - HEART FAILURE, UNSPECIFIED SNOMED Code(s): 34975050 Plan: Impression: 1. Medical debility. 2. Melanoma stage IV. 3. Atrial flutter with RVR. 4. Pulmonary effusion and lower extremity edema. 5. Hypertension. Comments and plan: At this time PT and OT are ongoing. Patient with definite endurance issues would not be able tolerate inpatient rehab currently. Will however continue to review patient's case daily, and a.m. Discussed with .
[2019-03-25 15:06] LABS: ABG Base Excess 2.1 mmol/L; ABG HCO3 29 mmol/L (21-25); ABG Oxygen Saturation 92.8 % (94-97); ABG PCO2 65 mmHg (35-45); ABG PH 7.26 (7.35-7.45); ABG PO2 77 mmHg (83-108); ABG TCO2 31 mmol/L (19-24); Allen Test Performed? Yes
--- NOTE | 2019-03-25 15:26 | XR ---
EXAMINATION TYPE: XR chest 1V portable DATE OF EXAM: 03/25/2019 COMPARISON: 03/25/2019 at 11:02 AM HISTORY: Diaphoresis. A team evaluation. TECHNIQUE: Single frontal view of the chest is obtained. FINDINGS: There is no enlarged cardiac mediastinal silhouette and multifocal opacities in the left m idlung, right lower lung, increasing in the retrocardiac airspace. Left-sided Mediport extends below the [id number] and again is likely in the inferior vena cava. No acute osseous pathology is seen. IMPRESSION: 1. Deep positioning of the left-sided Mediport extending off of the [id number] likely within the i nferior vena cava. 2. Multifocal opacities are increasing confluence in the retrocardiac airspace with a component of at electasis suspected given the short-term change although underlying confluent pulmonary edema or pneu monia are also possibilities. 3. Enlarged cardiac mediastinal silhouette is seen on the prior of 04/04/2019. Echocardiogram could as sess function and possibility of pericardial effusion.
[2019-03-25] MEDS: FUROSEMIDE 100 MG in SODIUM CHLORIDE 0.9% 90 ML IV SCH (15:35)
[2019-03-25 15:47] LABS: Glucose,Whole Blood 97 mg/dL (75-99)
[2019-03-25] MEDS: IPRATROPIUM-ALBUTEROL 3 ML NEB INHALATION SCH ×2 (15:52→20:19)
[2019-03-25] MEDS: PANTOPRAZOLE 40 MG/10 ML VIAL IVP SCH (15:53)
--- NOTE | 2019-03-25 17:15 | P.PN ---
Subjective Progress Note Date: 03/25/19 Principal diagnosis: Dyspnea with bilateral pleural effusions and pulmonary embolism/DVT with new atrial flutter This a very pleasant 64-year-old gentleman who follows with Dr. Mcneill is his primary care physician. His history of hypertension and hyperlipidemia, previous smoking history. He also has stage IV melanoma and follows with Dr. Alegria in the outpatient setting. He had treatment approximately 3 weeks ago. He presented to the emergency room yesterday with shortness of breath with atrial flutter with rapid ventricular response. He was initially given 6 mg of Benicar which slowed the rhythm down to identify the atrial flutter. He was surgically started on Cardizem and then seen and evaluated by radiology and he is currently on amiodarone at 0.5 mg/m. He is also on a heparin drip. Chest x- ray revealed bibasilar effusions. Echocardiogram reveals preserved left ventricular systolic function with ejection fraction 50-55%. There is moderate pulmonary hypertension. CT angiogram reveals a right lower lobe pulmonary embolism. There is bilateral pulmonary effusions and a small pericardial effusion. There are multiple chest, mediastinal and axillary masses present, suspect progression of his melanoma. Doppler of the lower extremities revealed bilateral DVT. Ultrasound of the chest reveals a 10 cm pocket on the left and a 7.4 cm pocket on the right. We will plan for a left-sided thoracentesis today. The patient is seen today 03/24/2019 in follow-up on the selective care unit. He is currently resting fairly comfortably in bed. Awake and alert. Reading easier today as compared to yesterday. Oxygen requirements have improved and he is on 5 L high flow nasal cannula. He is status post left-sided thoracentesis with 1.5 L of fairly clear yellow fluid removed. Cultures and cytology are pending. Protein 1.5. LDH 346. White count 4.5. Hemoglobin 11.1. The patient is seen today 03/25/2019 in follow-up on the selective care unit. He did undergo a left-sided Mediport placement earlier this morning. Earlier this afternoon the patient was having worsening shortness of breath cough and congestion. He was having low oxygen durations and then A team was called. Is given additional IV Lasix. Placed on BiPAP 12/500% FiO2 and he improved. His is at the bedside. Based on his overall poor prognosis and recent events he was made a DO NOT RESUSCITATE CODE STATUS. Chest x-ray reveals multiple opacities and increasing confluence retrocardiac space component of atelectasis suggestive of pulmonary edema. He was also suspected pericardial effusion. He is initiated on a Lasix drip at 10 mg per hour. Objective - Vital Signs Vital signs: Vital Signs Temp 97.5 F L 03/25/19 11:50 Pulse 83 03/25/19 16:09 Resp 18 03/25/19 11:50 BP 102/63 03/25/19 11:50 Pulse Ox 92 L 03/25/19 11:50 Intake & Output 03/24/19 03/25/19 03/25/19 18:59 06:59 18:59 Intake Total 1174.042 200 672 Output Total 500 350 Balance 674.042 200 322 Weight 96.5 kg Intake: IV 450 Intake, IV Titration 64.042 Amount Heparin Sod,Pork in 0.45% 64.042 NaCl 25,000 unit In 0.45 % NaCl 1 250ml.bag @ 18 UNITS/KG/HR 17.73 mls/hr IV .Q14H7M [facility] Rx#: [id number] Oral 1110 200 222 Output: Urine 500 350 Other: Voiding Method Bedside Commode Bedside Commode Bedpan Bedpan # Voids 1 1 # Bowel Movements 1 - Exam GENERAL EXAM: Alert, fairly comfortable in mild respiratory distress. On BiPAP 12/5 and 100% FiO2. HEAD: Normocephalic. EYES: Normal reaction of pupils, equal size. NOSE: Clear with pink turbinates. THROAT: No erythema or exudates. NECK: No masses, no JVD. CHEST: No chest wall deformity. LUNGS: Equal air entry with bibasilar crackles, diminished, dullness bilaterally. CVS: S1 and S2 normal with no audible murmur, regular rhythm. ABDOMEN: No hepatosplenomegaly, normal bowel sounds, no guarding or rigidity. SPINE: No scoliosis or deformity SKIN: No rashes CENTRAL NERVOUS SYSTEM: No focal deficits, tone is normal in all 4 extremities. EXTREMITIES: There is no peripheral edema. No clubbing, no cyanosis. Peripheral pulses are intact. - Labs CBC & Chem 7: 03/25/19 07:43 03/25/19 07:43 Labs: Abnormal Lab Results - Last 24 Hours (Table) 0803/25/19 03/25/19 Range/Units 17:46 07:43 07:43 Hgb 11.6 L (13.0-17.5) gm/dL Hct 38.7 L (39.0-53.0) % MCHC 30.0 L (31.0-37.0) g/dL RDW 18.7 H (11.5-15.5) % Plt Count 134 L (150-450) k/uL Lymphocytes # 0.4 L (1.0-4.8) k/uL APTT 59.7 H (22.0-30.0) sec ABG pH (7.35-7.45) ABG pCO2 (35-45) mmHg ABG pO2 (83-108) mmHg ABG HCO3 (21-25) mmol/L ABG Total CO2 (19-24) mmol/L ABG O2 Saturation (94-97) % BUN 30 H (9-20) mg/dL Glucose 103 H (74-99) mg/dL Calcium 7.5 L (8.4-10.2) mg/dL 03/25/19 Range/Units 15:05 Hgb (13.0-17.5) gm/dL Hct (39.0-53.0) % MCHC (31.0-37.0) g/dL RDW (11.5-15.5) % Plt Count (150-450) k/uL Lymphocytes # (1.0-4.8) k/uL APTT (22.0-30.0) sec ABG pH 7.26 L (7.35-7.45) ABG pCO2 65 H (35-45) mmHg ABG pO2 77 L (83-108) mmHg ABG HCO3 29 H (21-25) mmol/L ABG Total CO2 31 H (19-24) mmol/L ABG O2 Saturation 92.8 L (94-97) % BUN (9-20) mg/dL Glucose (74-99) mg/dL Calcium (8.4-10.2) mg/dL Microbiology - Last 24 Hours (Table) 03/23/19 12:30 Gram Stain - Preliminary Thoracic Fluid Body Fluid Culture - Preliminary 03/23/19 12:30 Acid Fast Bacilli Smear - Final Thoracic Fluid Acid Fast Bacilli Culture - Preliminary Assessment and Plan Assessment: Impression: #1 New onset atrial flutter with a rapid ventricular response, initiated on amiodarone, currently in sinus rhythm. On a heparin drip. #2 Bilateral pleural effusions. Status post left-sided thoracentesis on 02/2019 with 1.5 L of fairly clear yellow fluid removed. #3 Right lower lobe pulmonary embolism with bilateral lower extremity DVTs. On heparin drip. #4 Multiple chest, mediastinal and axillary masses. Progression of melanoma. #5 Acute hypoxic respiratory failure secondary to above. Currently on 15 L high flow nasal cannula. #6 Recurrent metastatic melanoma, initially treated in 2011 with wide excision. Recurrence in December 2018 and treated with Opdivo. Rest treatment approximately 3 weeks ago. #7 history of hypertension. #8 Hyperlipidemia. #9 History of previous tobacco dependence. Plan: The patient was seen and evaluated by Dr. Chase. Chest x-ray and labs reviewed. The patient will be on BiPAP 12/5 currently down to 60% FiO2. We'll titrate as tolerated well during oxygen saturations greater than 92%. Initiated on a Lasix drip. He has been made a DO NOT RESUSCITATE/DO NOT INTUBATE CODE STATUS. Overall prognosis remains quite poor. We'll continue to follow and make further recommendations based on his clinical status. I, the cosigning physician, performed a history & physical examination of the patient. Lungs sounds with bilateral crackles. Maintaining good O2 saturations in the 90s on BiPAP 12/5 and 60% FiO2. I discussed the assessment and plan of care with my nurse practitioner, Yennifer Jimenez. I attest to the above note as dictated by her.
[2019-03-25] MEDS: IPRATROPIUM-ALBUTEROL 3 ML NEB INHALATION PRN (23:38)
[2019-03-26] MEDS: IPRATROPIUM-ALBUTEROL 3 ML NEB INHALATION PRN (03:31)
[2019-03-26 03:55] LABS: Anisocytosis Slight; Basophils % (A) 0 %; Eosinophils % (A) 1 %; HCT 38.2 % (39.0-53.0); HGB 11.7 gm/dL (13.0-17.5); Hypochromasia Marked; Lymphocytes # (A) 0.4 k/uL (1.0-4.8); Lymphocytes % (A) 6 %; MCH 27.6 pg (25.0-35.0); MCHC 30.6 g/dL (31.0-37.0); MCV 90.2 fL (80.0-100.0); Mean Platelet Volume 7.6; Monocytes # (A) 0.2 k/uL (0-1.0); Monocytes % (A) 4 %; Neutrophils # (A) 5.3 k/uL (1.3-7.7); Neutrophils % (A) 89 %; Platelet Count 107 k/uL (150-450); RBC 4.23 m/uL (4.30-5.90); RDW 18.8 % (11.5-15.5); WBC 5.9 k/uL (3.8-10.6)
[2019-03-26 04:06] LABS: African American GFR (CKD) >90 (>60 ml/min/1.73 sqM); Anion Gap 9 mmol/L; Blood Urea Nitrogen 30 mg/dL (9-20); Calcium 7.2 mg/dL (8.4-10.2); Carbon Dioxide 28 mmol/L (22-30); Chloride 107 mmol/L (98-107); Glucose 92 mg/dL (74-99); Non-African American GFR(CKD) 87 (>60 ml/min/1.73 sqM); Potassium 3.6 mmol/L (3.5-5.1); Sodium 144 mmol/L (137-145)
[2019-03-26] MEDS: LACTATED RINGERS 1,000 ML IV SCH ×3 (05:43→14:57)
[2019-03-26] MEDS: FUROSEMIDE 100 MG in SODIUM CHLORIDE 0.9% 90 ML IV SCH ×2 (05:49→14:54)
[2019-03-26] MEDS: IPRATROPIUM-ALBUTEROL 3 ML NEB INHALATION SCH ×4 (08:06→20:16)
[2019-03-26] MEDS: LORATADINE 10 MG TAB PO SCH (09:53)
[2019-03-26] MEDS: PANTOPRAZOLE 40 MG/10 ML VIAL IVP SCH (09:53)
[2019-03-26] MEDS: FENOFIBRATE 160 MG TAB PO SCH (09:53)
[2019-03-26] MEDS: AMIODARONE 200 MG TAB PO SCH ×2 (09:53→22:10)
[2019-03-26] MEDS: METOPROLOL SUCCINATE (ER) 50 MG TAB.ER.24H PO SCH (09:53)
--- NOTE | 2019-03-26 10:48 | P.PN ---
Subjective Progress Note Date: 03/26/19 Principal diagnosis: Dyspnea with bilateral pleural effusions and pulmonary embolism/DVT with new atrial flutter This a very pleasant 64-year-old gentleman who follows with Dr. Mcneill is his primary care physician. His history of hypertension and hyperlipidemia, previous smoking history. He also has stage IV melanoma and follows with Dr. Alegria in the outpatient setting. He had treatment approximately 3 weeks ago. He presented to the emergency room yesterday with shortness of breath with atrial flutter with rapid ventricular response. He was initially given 6 mg of Benicar which slowed the rhythm down to identify the atrial flutter. He was surgically started on Cardizem and then seen and evaluated by radiology and he is currently on amiodarone at 0.5 mg/m. He is also on a heparin drip. Chest x- ray revealed bibasilar effusions. Echocardiogram reveals preserved left ventricular systolic function with ejection fraction 50-55%. There is moderate pulmonary hypertension. CT angiogram reveals a right lower lobe pulmonary embolism. There is bilateral pulmonary effusions and a small pericardial effusion. There are multiple chest, mediastinal and axillary masses present, suspect progression of his melanoma. Doppler of the lower extremities revealed bilateral DVT. Ultrasound of the chest reveals a 10 cm pocket on the left and a 7.4 cm pocket on the right. We will plan for a left-sided thoracentesis today. The patient is seen today 03/24/2019 in follow-up on the selective care unit. He is currently resting fairly comfortably in bed. Awake and alert. Reading easier today as compared to yesterday. Oxygen requirements have improved and he is on 5 L high flow nasal cannula. He is status post left-sided thoracentesis with 1.5 L of fairly clear yellow fluid removed. Cultures and cytology are pending. Protein 1.5. LDH 346. White count 4.5. Hemoglobin 11.1. The patient is seen today 03/25/2019 in follow-up on the selective care unit. He did undergo a left-sided Mediport placement earlier this morning. Earlier this afternoon the patient was having worsening shortness of breath cough and congestion. He was having low oxygen durations and then A team was called. Is given additional IV Lasix. Placed on BiPAP 12/500% FiO2 and he improved. His is at the bedside. Based on his overall poor prognosis and recent events he was made a DO NOT RESUSCITATE CODE STATUS. Chest x-ray reveals multiple opacities and increasing confluence retrocardiac space component of atelectasis suggestive of pulmonary edema. He was also suspected pericardial effusion. He is initiated on a Lasix drip at 10 mg per hour. The patient is seen today 03/26/2019 in follow-up on the selective care unit. He is more awake and alert today as compared to yesterday. Currently off the BiPAP and maintaining good O2 saturations on 15 L high flow nasal cannula. White count 5.9. Hemoglobin 11.7. Creatinine 0.93. He is maintained on DuoNeb inhalations. Continued on heparin drip. Remains on Lasix drip at 10 mg per hour. He is on amiodarone oral. Objective - Vital Signs Vital signs: Vital Signs Temp 98.1 F 03/26/19 08:00 Pulse 82 03/26/19 08:28 Resp 18 03/26/19 08:00 BP 93/61 03/26/19 08:00 Pulse Ox 97 03/26/19 08:00 Intake & Output 03/25/19 03/26/19 03/26/19 18:59 06:59 18:59 Intake Total 922 140.929 Output Total 700 1000 Balance 222 -859.071 Weight 99.2 kg Intake: IV 450 Intake, IV Titration 250 130.929 Amount Furosemide 100 mg In 100 Sodium Chloride 0.9% 90 ml @ 10 MG/HR 10 mls/hr IV .Q10H [facility] Rx#: [id number] Heparin Sod,Pork in 0.45% 250 30.929 NaCl 25,000 unit In 0.45 % NaCl 1 250ml.bag @ 18 UNITS/KG/HR 17.73 mls/hr IV .Q14H7M [facility] Rx#: [id number] Oral 222 10 Output: Urine 700 1000 Other: Voiding Method Bedside Commode Bedpan Bedpan Indwelling Catheter # Voids 1 - Exam GENERAL EXAM: Alert, fairly comfortable in mild respiratory distress. On 15 L high flow nasal cannula. HEAD: Normocephalic. EYES: Normal reaction of pupils, equal size. NOSE: Clear with pink turbinates. THROAT: No erythema or exudates. NECK: No masses, no JVD. CHEST: No chest wall deformity. LUNGS: Equal air entry with bibasilar crackles, diminished, dullness ene aterally. CVS: S1 and S2 normal with no audible murmur, regular rhythm. ABDOMEN: No hepatosplenomegaly, normal bowel sounds, no guarding or rigidity. SPINE: No scoliosis or deformity SKIN: No rashes CENTRAL NERVOUS SYSTEM: No focal deficits, tone is normal in all 4 extremities. EXTREMITIES: There is no peripheral edema. No clubbing, no cyanosis. Peripheral pulses are intact. - Labs CBC & Chem 7: 03/26/19 03:23 03/26/19 03:23 Labs: Abnormal Lab Results - Last 24 Hours (Table) 03/25/19 03/25/19 03/26/19 Range/Units 15:05 18:00 03:23 RBC 4.23 L (4.30-5.90) m/uL Hgb 11.7 L (13.0-17.5) gm/dL Hct 38.2 L (39.0-53.0) % MCHC 30.6 L (31.0-37.0) g/dL RDW 18.8 H (11.5-15.5) % Plt Count 107 L (150-450) k/uL Lymphocytes # 0.4 L (1.0-4.8) k/uL APTT 36.3 H (22.0-30.0) sec ABG pH 7.26 L (7.35-7.45) ABG pCO2 65 H (35-45) mmHg ABG pO2 77 L (83-108) mmHg ABG HCO3 29 H (21-25) mmol/L ABG Total CO2 31 H (19-24) mmol/L ABG O2 Saturation 92.8 L (94-97) % BUN (9-20) mg/dL Calcium (8.4-10.2) mg/dL 03/26/19 03/26/19 Range/Units 03:23 03:23 RBC (4.30-5.90) m/uL Hgb (13.0-17.5) gm/dL Hct (39.0-53.0) % MCHC (31.0-37.0) g/dL RDW (11.5-15.5) % Plt Count (150-450) k/uL Lymphocytes # (1.0-4.8) k/uL APTT 60.8 H (22.0-30.0) sec ABG pH (7.35-7.45) ABG pCO2 (35-45) mmHg ABG pO2 (83-108) mmHg ABG HCO3 (21-25) mmol/L ABG Total CO2 (19-24) mmol/L ABG O2 Saturation (94-97) % BUN 30 H (9-20) mg/dL Calcium 7.2 L (8.4-10.2) mg/dL Microbiology - Last 24 Hours (Table) 03/23/19 12:30 Gram Stain - Preliminary Thoracic Fluid Body Fluid Culture - Preliminary Assessment and Plan Assessment: Impression: #1 New onset atrial flutter with a rapid ventricular response, initiated on amiodarone, currently in sinus rhythm. Converted to oral amiodarone. On a heparin drip. #2 Bilateral pleural effusions. Status post left-sided thoracentesis on with 1.5 L of fairly clear yellow fluid removed. #3 Right lower lobe pulmonary embolism with bilateral lower extremity DVTs. On heparin drip. #4 Multiple chest, mediastinal and axillary masses. Progression of melanoma. #5 Acute hypoxic respiratory failure secondary to above. Currently on 15 L high flow nasal cannula. Has been on BiPAP support. #6 Recurrent metastatic melanoma, initially treated in 2011 with wide excision. Recurrence in December 2018 and treated with Opdivo. Rest treatment approximately 3 weeks ago. #7 history of hypertension. #8 Hyperlipidemia. #9 History of previous tobacco dependence. Plan: The patient was seen and evaluated by Dr. Chase. He is improved today compared to yesterday. Currently on 15 L high flow nasal cannula. Remains on a Lasix drip. Remains on a heparin drip. Converted to oral amiodarone. He has been made a DO NOT RESUSCITATE/DO NOT INTUBATE CODE STATUS. Overall prognosis remains quite poor. We'll continue to follow and make further recommendations based on his clinical status. I, the cosigning physician, performed a history & physical examination of the patient. Lungs sounds with bilateral crackles. Maintaining good O2 saturations in the 90s on 15 L high flow nasal cannula. I discussed the assessment and plan of care with my nurse practitioner, Yennifer Jimenez. I attest to the above note as dictated by her.
--- NOTE | 2019-03-26 13:04 | P.PN ---
Subjective Progress Note Date: 03/26/19 Principal diagnosis: Mr. Goodwin is a patient well-known to Dr. Mcneill, or underwent surgical excision for melanoma in 2011, presented to the office complaining of shortness of breath, patient subsequently went the emergency room where he underwent chest x-ray that suggested bibasilar air this this and pleural effusions. Patient had a recent history of stage IV metastatic melanoma with clavicular and right axillary masses was brought into the emergency room because of ongoing weakness and tachycardia, patient was found to be in A. fib with rapid ventricular response patient was initially treated with Adenicard, and then IV Cardizem Patient was initially admitted with a cardiac consultation. Spiral CT of chest was performed patient had noted pulmonary embolus and subsequently was found to have bilateral DVTs, patient was placed on a heparin. Patient is episodic respiratory failure was placed on BiPAP and on 03/26/2019 patient was found to have been moved to the selective care unit. Where he is currently off BiPAP indicating good O2 sats on 15 L high flow nasal cannula, symptoms have found to be in improved currently on heparin drip and Lasix drip at 10 mg per hour patient is also on oral amiodarone for rate control Objective - Vital Signs Vital signs: Vital Signs Temp 98.1 F 03/26/19 08:00 Pulse 84 03/26/19 12:06 Resp 18 03/26/19 08:00 BP 93/61 03/26/19 08:00 Pulse Ox 97 03/26/19 08:00 Intake & Output 03/25/19 03/26/19 03/26/19 18:59 06:59 18:59 Intake Total 922 140.929 Output Total 700 1000 500 Balance 222 -859.071 -500 Weight 99.2 kg Intake: IV 450 Intake, IV Titration 250 130.929 Amount Furosemide 100 mg In 100 Sodium Chloride 0.9% 90 ml @ 10 MG/HR 10 mls/hr IV .Q10H [facility] Rx#: [id number] Heparin Sod,Pork in 0.45% 250 30.929 NaCl 25,000 unit In 0.45 % NaCl 1 250ml.bag @ 18 UNITS/KG/HR 17.73 mls/hr IV .Q14H7M [facility] Rx#: [id number] Oral 222 10 Output: Urine 700 1000 500 Other: Voiding Method Bedside Commode Bedpan Bedpan Indwelling Catheter # Voids 1 - Exam General: [Patient awake, alert and oriented times 3. Patient in no acute distress.] HEENT: [PERRL. EOMI. No pharyngeal erythema or exudate.] Neck: [No adenopathy.] Recent placement of left-sided port Cardiac: [Heart regularly irregular rate 82. No S3. No S4. No clicks, rubs. No murmur.] Lungs: Breath sounds diminished bilaterally with bibasilar crackles Abdomen: [No mass. No organomegaly. Bowel sounds presnt and normoactive in all 4 quadrants.] Extremes: Patient has significant right upper is extreme lymphedema with axillary mass on the right : [] Musculoskeletal: [No joint erythema, edema or tenderness.] Skin: [No rash.] Neurologic: [No lateralizing deficits. CN II - XII grossly intact.] Lymphatic: [No adenopathy.] - Labs CBC & Chem 7: 03/26/19 03:23 03/26/19 03:23 Labs: Abnormal Lab Results - Last 24 Hours (Table) 03/25/19 03/25/19 03/26/19 Range/Units 15:05 18:00 03:23 RBC 4.23 L (4.30-5.90) m/uL Hgb 11.7 L (13.0-17.5) gm/dL Hct 38.2 L (39.0-53.0) % MCHC 30.6 L (31.0-37.0) g/dL RDW 18.8 H (11.5-15.5) % Plt Count 107 L (150-450) k/uL Lymphocytes # 0.4 L (1.0-4.8) k/uL APTT 36.3 H (22.0-30.0) sec ABG pH 7.26 L (7.35-7.45) ABG pCO2 65 H (35-45) mmHg ABG pO2 77 L (83-108) mmHg ABG HCO3 29 H (21-25) mmol/L ABG Total CO2 31 H (19-24) mmol/L ABG O2 Saturation 92.8 L (94-97) % BUN (9-20) mg/dL Calcium (8.4-10.2) mg/dL 03/26/19 03/26/19 Range/Units 03:23 03:23 RBC (4.30-5.90) m/uL Hgb (13.0-17.5) gm/dL Hct (39.0-53.0) % MCHC (31.0-37.0) g/dL RDW (11.5-15.5) % Plt Count (150-450) k/uL Lymphocytes # (1.0-4.8) k/uL APTT 60.8 H (22.0-30.0) sec ABG pH (7.35-7.45) ABG pCO2 (35-45) mmHg ABG pO2 (83-108) mmHg ABG HCO3 (21-25) mmol/L ABG Total CO2 (19-24) mmol/L ABG O2 Saturation (94-97) % BUN 30 H (9-20) mg/dL Calcium 7.2 L (8.4-10.2) mg/dL Microbiology - Last 24 Hours (Table) 03/23/19 12:30 Gram Stain - Preliminary Thoracic Fluid Body Fluid Culture - Preliminary Assessment and Plan (1) Atrial flutter with rapid ventricular response Current Visit: Yes Status: Acute Code(s): I48.92 - UNSPECIFIED ATRIAL FLUTTER SNOMED Code(s): 9031734 (2) CHF (congestive heart failure) Current Visit: Yes Status: Acute Code(s): I50.9 - HEART FAILURE, UNSPECIFIED SNOMED Code(s): 99999976 (3) Edema Current Visit: Yes Status: Acute Code(s): R60.9 - EDEMA, UNSPECIFIED SNOMED Code(s): 682705420 (4) Melanoma Current Visit: Yes Status: Acute Code(s): C43.9 - MALIGNANT MELANOMA OF SKIN, UNSPECIFIED SNOMED Code(s): 506677447 (5) Pleural cavity effusion Current Visit: Yes Status: Acute Code(s): J90 - PLEURAL EFFUSION, NOT ELSEWHERE CLASSIFIED SNOMED Code(s): 64053741 Plan: #1 new-onset atrial flutter with rapid ventricular response patient currently on oral amiodarone and heparin drip #2 bilateral pleural effusions. Status post left thoracentesis on 03/23/2019 #3 right lower lobe PE, with bilateral lower extreme DVTs currently on heparin drip #4 multiple chest mediastinal and axillary masses. progression of melanoma #5 patient underwent acute hypoxic respiratory failure secondary to all of the above. Currently on 15 L high flow nasal cannula has been on BiPAP support as well #6 recurrent metastatic melanoma initially treated in 2011 with wide excision. Recurrence in December 2018 treated with Opdivo #7 hypertension by history #8 hyperlipidemia by history #9 history of tobacco use syndrome Over 10 patient has been made a DO NOT RESUSCITATE do not and to intubate CODE STATUS Currently on Lasix drip oral amiodarone prognosis poor Time with Patient: Greater than 30
[2019-03-26] MEDS: traMADol 50 MG TAB PO PRN ×2 (13:09→22:11)
[2019-03-26] MEDS: HEPARIN SOD,PORK IN 0.45% NACL 25,000 UNIT in 0.45% NACL 1 250ML.BAG IV SCH (13:10)
[2019-03-26] MEDS: LIDOCAINE 5% PATCH TOPICAL SCH (14:55)
[2019-03-26] MEDS: ALPRAZolam 0.5 MG TAB PO PRN (22:11)
[2019-03-27] MEDS: FUROSEMIDE 100 MG in SODIUM CHLORIDE 0.9% 90 ML IV SCH ×3 (04:21→20:57)
[2019-03-27] MEDS: LACTATED RINGERS 1,000 ML IV SCH ×3 (04:23→20:46)
[2019-03-27] MEDS: IPRATROPIUM-ALBUTEROL 3 ML NEB INHALATION SCH ×4 (07:33→21:23)
[2019-03-27] MEDS: METOPROLOL SUCCINATE (ER) 50 MG TAB.ER.24H PO SCH (09:09)
[2019-03-27] MEDS: FENOFIBRATE 160 MG TAB PO SCH (09:09)
[2019-03-27] MEDS: AMIODARONE 200 MG TAB PO SCH ×2 (09:09→20:48)
[2019-03-27] MEDS: LORATADINE 10 MG TAB PO SCH (09:09)
[2019-03-27] MEDS: PANTOPRAZOLE SODIUM 40 MG GRANULE PKT PO SCH (09:10)
--- NOTE | 2019-03-27 11:46 | P.PN ---
Subjective Progress Note Date: 03/27/19 Principal diagnosis: Dyspnea with bilateral pleural effusions and pulmonary embolism/DVT with new atrial flutter This a very pleasant 64-year-old gentleman who follows with Dr. Mcneill is his primary care physician. His history of hypertension and hyperlipidemia, previous smoking history. He also has stage IV melanoma and follows with Dr. Alegria in the outpatient setting. He had treatment approximately 3 weeks ago. He presented to the emergency room yesterday with shortness of breath with atrial flutter with rapid ventricular response. He was initially given 6 mg of Benicar which slowed the rhythm down to identify the atrial flutter. He was surgically started on Cardizem and then seen and evaluated by radiology and he is currently on amiodarone at 0.5 mg/m. He is also on a heparin drip. Chest x- ray revealed bibasilar effusions. Echocardiogram reveals preserved left ventricular systolic function with ejection fraction 50-55%. There is moderate pulmonary hypertension. CT angiogram reveals a right lower lobe pulmonary embolism. There is bilateral pulmonary effusions and a small pericardial effusion. There are multiple chest, mediastinal and axillary masses present, suspect progression of his melanoma. Doppler of the lower extremities revealed bilateral DVT. Ultrasound of the chest reveals a 10 cm pocket on the left and a 7.4 cm pocket on the right. We will plan for a left-sided thoracentesis today. The patient is seen today 03/24/2019 in follow-up on the selective care unit. He is currently resting fairly comfortably in bed. Awake and alert. Reading easier today as compared to yesterday. Oxygen requirements have improved and he is on 5 L high flow nasal cannula. He is status post left-sided thoracentesis with 1.5 L of fairly clear yellow fluid removed. Cultures and cytology are pending. Protein 1.5. LDH 346. White count 4.5. Hemoglobin 11.1. The patient is seen today 03/25/2019 in follow-up on the selective care unit. He did undergo a left-sided Mediport placement earlier this morning. Earlier this afternoon the patient was having worsening shortness of breath cough and congestion. He was having low oxygen durations and then A team was called. Is given additional IV Lasix. Placed on BiPAP 12/500% FiO2 and he improved. His is at the bedside. Based on his overall poor prognosis and recent events he was made a DO NOT RESUSCITATE CODE STATUS. Chest x-ray reveals multiple opacities and increasing confluence retrocardiac space component of atelectasis suggestive of pulmonary edema. He was also suspected pericardial effusion. He is initiated on a Lasix drip at 10 mg per hour. The patient is seen today 03/26/2019 in follow-up on the selective care unit. He is more awake and alert today as compared to yesterday. Currently off the BiPAP and maintaining good O2 saturations on 15 L high flow nasal cannula. White count 5.9. Hemoglobin 11.7. Creatinine 0.93. He is maintained on DuoNeb inhalations. Continued on heparin drip. Remains on Lasix drip at 10 mg per hour. He is on amiodarone oral. Patient is seen today 03/27/2019 in follow-up on the selective care unit. He is currently resting in bed, awake and alert in mild respiratory distress. Somewhat weaker today as compared to yesterday. Currently on 8 L high flow nasal cannula and maintaining O2 saturations in the 90s. He is afebrile. Still somewhat tachycardic. Pleural fluid cultures pending. He is currently on DuoNeb inhalations remains on a heparin drip at 16 units per kilogram per hour. Lasix drip at 10 mg per hour. Objective - Vital Signs Vital signs: Vital Signs Temp 98 F 03/27/19 08:00 Pulse 98 03/27/19 11:10 Resp 18 03/27/19 08:00 BP 112/80 03/27/19 08:00 Pulse Ox 96 03/27/19 08:00 Intake & Output 03/26/19 03/27/19 03/27/19 18:59 06:59 18:59 Intake Total 981.904 240 Output Total 500 500 Balance 481.904 -260 Weight 100.1 kg Intake: Intake, IV Titration 309.904 100 Amount Furosemide 100 mg In 90.833 100 Sodium Chloride 0.9% 90 ml @ 10 MG/HR 10 mls/hr IV .Q10H [facility] Rx#: [id number] Heparin Sod,Pork in 0.45% 219.071 NaCl 25,000 unit In 0.45 % NaCl 1 250ml.bag @ 18 UNITS/KG/HR 17.73 mls/hr IV .Q14H7M [facility] Rx#: [id number] Oral 672 140 Output: Urine 500 500 Other: Voiding Method Bedpan Indwelling Catheter - Exam GENERAL EXAM: Alert, fairly comfortable in mild respiratory distress. On 8 L high flow nasal cannula. HEAD: Normocephalic. EYES: Normal reaction of pupils, equal size. NOSE: Clear with pink turbinates. THROAT: No erythema or exudates. NECK: No masses, no JVD. CHEST: No chest wall deformity. LUNGS: Equal air entry with bibasilar crackles, diminished, dullness bilaterally. CVS: S1 and S2 normal with no audible murmur, regular rhythm. ABDOMEN: No hepatosplenomegaly, normal bowel sounds, no guarding or rigidity. SPINE: No scoliosis or deformity SKIN: No rashes CENTRAL NERVOUS SYSTEM: No focal deficits, tone is normal in all 4 extremities. EXTREMITIES: There is no peripheral edema. No clubbing, no cyanosis. Peripheral pulses are intact. - Labs CBC & Chem 7: 03/26/19 03:23 03/26/19 03:23 Labs: Abnormal Lab Results - Last 24 Hours (Table) 03/27/19 Range/Units 07:58 APTT 53.2 H (22.0-30.0) sec Microbiology - Last 24 Hours (Table) 03/23/19 12:30 Gram Stain - Preliminary Thoracic Fluid Body Fluid Culture - Preliminary Assessment and Plan Assessment: Impression: #1 New onset atrial flutter with a rapid ventricular response, initiated on ami odarone, currently in sinus rhythm. Converted to oral amiodarone. On a heparin drip. #2 Bilateral pleural effusions. Status post left-sided thoracentesis on 03/23/2019 with 1.5 L of fairly clear yellow fluid removed. Ultrasound pending. #3 Right lower lobe pulmonary embolism with bilateral lower extremity DVTs. On heparin drip. #4 Multiple chest, mediastinal and axillary masses. Progression of melanoma. #5 Acute hypoxic respiratory failure secondary to above. Currently on 8 L high flow nasal cannula. Has been on BiPAP support. #6 Recurrent metastatic melanoma, initially treated in 2011 with wide excision. Recurrence in December 2018 and treated with Opdivo. Rest treatment approximately 3 weeks ago. #7 History of hypertension. #8 Hyperlipidemia. #9 History of previous tobacco dependence. Plan: The patient was seen and evaluated by Dr. Chase. He remains quite weak and dysp neic. Currently on 8 L high flow nasal cannula. Remains on a Lasix drip. Remains on a heparin drip. He has been made a DO NOT RESUSCITATE/DO NOT INTUBATE CODE STATUS. Overall prognosis remains quite poor. A hospice consult may be appropriate. We'll continue to follow and make further recommendations based on his clinical status. I, the cosigning physician, performed a history & physical examination of the patient. Lungs sounds with bilateral crackles. Maintaining good O2 saturations in the 90s on 8 L high flow nasal cannula. I discussed the assessment and plan of care with my nurse practitioner, Yennifer Jimenez. I attest to the above note as dictated by her.
[2019-03-27 12:16] VITALS: BMI 31.6
[2019-03-27] MEDS: HEPARIN SOD,PORK IN 0.45% NACL 25,000 UNIT in 0.45% NACL 1 250ML.BAG IV SCH ×2 (12:37→22:41)
--- NOTE | 2019-03-27 12:56 | P.PN ---
Subjective Progress Note Date: 03/27/19 Principal diagnosis: Mr. Goodwin is a patient well-known to Dr. Mcneill, or underwent surgical excision for melanoma in 2011, presented to the office complaining of shortness of breath, patient subsequently went the emergency room where he underwent chest x-ray that suggested bibasilar air this this and pleural effusions. Patient had a recent history of stage IV metastatic melanoma with clavicular and right axillary masses was brought into the emergency room because of ongoing weakness and tachycardia, patient was found to be in A. fib with rapid ventricular response patient was initially treated with Adenicard, and then IV Cardizem Patient was initially admitted with a cardiac consultation. Spiral CT of chest was performed patient had noted pulmonary embolus and subsequently was found to have bilateral DVTs, patient was placed on a heparin. Patient is episodic respiratory failure was placed on BiPAP and on 03/26/2019 patient was found to have been moved to the selective care unit. Where he is currently off BiPAP indicating good O2 sats on 15 L high flow nasal cannula, symptoms have found to be in improved currently on heparin drip and Lasix drip at 10 mg per hour patient is also on oral amiodarone for rate control Objective - Vital Signs Vital signs: Vital Signs Temp 98 F 03/27/19 08:00 Pulse 98 03/27/19 11:10 Resp 18 03/27/19 08:00 BP 112/80 03/27/19 08:00 Pulse Ox 96 03/27/19 08:00 Intake & Output 03/26/19 03/27/19 03/27/19 18:59 06:59 18:59 Intake Total 981.904 490 82.5 Output Total 500 500 Balance 481.904 -10 82.5 Weight 100.1 kg 100.1 kg Intake: Intake, IV Titration 309.904 350 82.5 Amount Furosemide 100 mg In 90.833 100 82.5 Sodium Chloride 0.9% 90 ml @ 10 MG/HR 10 mls/hr IV .Q10H [facility] Rx#: [id number] Heparin Sod,Pork in 0.45% 219.071 250 NaCl 25,000 unit In 0.45 % NaCl 1 250ml.bag @ 18 UNITS/KG/HR 17.73 mls/hr IV .Q14H7M [facility] Rx#: [id number] Oral 672 140 Output: Urine 500 500 Other: Voiding Method Bedpan Indwelling Catheter - Exam General: [Patient awake, alert and oriented times 3. Patient in no acute distress.] HEENT: [PERRL. EOMI. No pharyngeal erythema or exudate.] Neck: [No adenopathy.] Recent placement of left-sided port Cardiac: [Heart regularly irregular rate 82. No S3. No S4. No clicks, rubs. No murmur.] Lungs: Breath sounds diminished bilaterally with bibasilar crackles Abdomen: [No mass. No organomegaly. Bowel sounds presnt and normoactive in all 4 quadrants.] Extremes: Patient has significant right upper is extreme lymphedema with axillary mass on the right : [] Musculoskeletal: [No joint erythema, edema or tenderness.] Skin: [No rash.] Neurologic: [No lateralizing deficits. CN II - XII grossly intact.] Lymphatic: [No adenopathy.] - Labs CBC & Chem 7: 03/26/19 03:23 03/26/19 03:23 Labs: Abnormal Lab Results - Last 24 Hours (Table) 03/27/19 Range/Units 07:58 APTT 53.2 H (22.0-30.0) sec Microbiology - Last 24 Hours (Table) 03/23/19 12:30 Gram Stain - Preliminary Thoracic Fluid Body Fluid Culture - Preliminary Assessment and Plan (1) Atrial flutter with rapid ventricular response Current Visit: Yes Status: Acute Code(s): I48.92 - UNSPECIFIED ATRIAL FLUTTER SNOMED Code(s): 5465940 (2) CHF (congestive heart failure) Current Visit: Yes Status: Acute Code(s): I50.9 - HEART FAILURE, UNSPECIFIED SNOMED Code(s): 61377314 (3) Edema Current Visit: Yes Status: Acute Code(s): R60.9 - EDEMA, UNSPECIFIED SNOMED Code(s): 329680262 (4) Melanoma Current Visit: Yes Status: Acute Code(s): C43.9 - MALIGNANT MELANOMA OF SKIN, UNSPECIFIED SNOMED Code(s): 629725286 (5) Pleural cavity effusion Current Visit: Yes Status: Acute Code(s): J90 - PLEURAL EFFUSION, NOT ELSEWHERE CLASSIFIED SNOMED Code(s): 75860718 Plan: #1 new-onset atrial flutter with rapid ventricular response patient currently on oral amiodarone and heparin drip #2 bilateral pleural effusions. Status post left thoracentesis on 03/23/2019 #3 right lower lobe PE, with bilateral lower extreme DVTs currently on heparin drip #4 multiple chest mediastinal and axillary masses. progression of melanoma #5 patient underwent acute hypoxic respiratory failure secondary to all of the above. Currently on 15 L high flow nasal cannula has been on BiPAP support as well #6 recurrent metastatic melanoma initially treated in 2011 with wide excision. Recurrence in December 2018 treated with Opdivo #7 hypertension by history #8 hyperlipidemia by history #9 history of tobacco use syndrome #10 swallow study pending, unsure is patient able to guard airway Over 10 patient has been made a DO NOT RESUSCITATE do not and to intubate CODE STATUS Currently on Lasix drip oral amiodarone prognosis poor
[2019-03-27] MEDS: LIDOCAINE 5% PATCH TOPICAL SCH (14:55)
[2019-03-27] MEDS: traMADol 50 MG TAB PO PRN (22:15)
[2019-03-27] MEDS: ALPRAZolam 0.5 MG TAB PO PRN (22:15)
[2019-03-28] MEDS: FUROSEMIDE 100 MG in SODIUM CHLORIDE 0.9% 90 ML IV SCH (06:25)
[2019-03-28] MEDS: traMADol 50 MG TAB PO PRN (06:33)
[2019-03-28] MEDS: PANTOPRAZOLE SODIUM 40 MG GRANULE PKT PO SCH (06:58)
[2019-03-28] MEDS: IPRATROPIUM-ALBUTEROL 3 ML NEB INHALATION SCH ×3 (07:43→15:10)
[2019-03-28] MEDS: LORATADINE 10 MG TAB PO SCH (08:57)
[2019-03-28] MEDS: METOPROLOL SUCCINATE (ER) 50 MG TAB.ER.24H PO SCH (08:57)
[2019-03-28] MEDS: AMIODARONE 200 MG TAB PO SCH (08:57)
[2019-03-28] MEDS: FENOFIBRATE 160 MG TAB PO SCH (08:57)
[2019-03-28] MEDS: LACTATED RINGERS 1,000 ML IV SCH (08:57)
[2019-03-28 09:36] VITALS: TEMP 98.1
[2019-03-28] MEDS: HEPARIN SOD,PORK IN 0.45% NACL 25,000 UNIT in 0.45% NACL 1 250ML.BAG IV SCH (12:42)
--- NOTE | 2019-03-28 14:13 | P.PN ---
Subjective Progress Note Date: 03/28/19 This is a 64-year-old gentleman with history of hypertension, hyperlipidemia, nondiabetic, nonsmoker, history of melanoma, diagnosed in November, presents to the hospital with symptoms of progressive weakness with associated shortness of breath, lower extremity edema, PND and orthopnea. Patient also states that over the past one month he's been noticing his heart rate intermittently to go fast and irregular. Blood pressure on arrival here 146/96, heart rate 170, 96% on room air. Blood pressure this morning 114/70 with a heart rate of 90, 99% on 2 L of oxygen. White blood cell count 4.5, hemoglobin 11.2, platelet count 183. Sodium 139, potassium 4.3, BUN 30, creatinine 1.1. Magnesium 1.8. Troponin 0.031, BNP 11,900. Chest x-ray on presentation here showed bilateral pleural effusions. EKG on arrival here showed atrial flutter with a rapid ventricular response. Patient was initially given 6 mg of adenosine in the emergency room, then subsequently given Lanoxin and initiated on IV Cardizem as well as IV heparin, continues to be in atrial flutter this morning, his heart rate is in the 90 range. At the time of my examination this morning, patient is sitting up at the bedside, he still feel somewhat short of breath and quite weak. He was initiated on IV Lasix in the emergency room and is also on oral diuretics. 03/23/2019 She was seen and examined this morning, continues to be in normal sinus rhythm. He was found on ultrasound to have significant bilateral pleural effusions and underwent a thoracentesis today. He does state overall that he is feeling better today.he continues to be on IV amiodarone, the heparin had been discontinued to perform the thoracentesis. Patient was also found on CAT scan to havepulmonary embolism as well as multiple mediastinotomy and axillary masses, which suggests progression of his melanoma. Doppler of the lower extremities revealed bilateral DVT.like pressure today 100/50 with a heart rate in the 70s.White blood cell count 3.9, hemoglobin 11.2, platelet count 160. Sodium 141, potassium 3.6, BUN 32 and creatinine 1.3. 03/24/2019 The patient is seen today 03/24/2019 in follow-up on the selective care unit. He is currently resting fairly comfortably in bed. Awake and alert. Reading easier today as compared to yesterday. Oxygen requirements have improved and he is on 5 L high flow nasal cannula. He is status post left-sided thoracentesis with 1.5 L of fairly clear yellow fluid removed. Cultures and cytology are pending. Protein 1.5. LDH 346. White count 4.5. Hemoglobin 11.1. Continues to be in a normal sinus rhythm 03/25/2019 Patient seen and examined this morning, scheduled for Mediport placement today. Continues to be in a normal sinus rhythm. Blood pressure 110/60 with a heart rate in the 80s, 96% on 4 L of oxygen. White blood cell count 5.2, hemoglobin 11.6, platelet count 134. Sodium 142, potassium 3.6, BUN 30 and creatinine 0.9. We will continue the amiodarone 400 mg one tablet by mouth twice a day for one week, then decrease to 200 mg 3 times a day for one week, then 200 mg by mouth twice a day. 03/28/2018 We had been following this patient on an as-needed basis only, however this morning he went back into atrial flutter with rapid ventricular response and we increase his dose of beta pee. There is conversation that the patient may go hospice care. But at this time we will attempt to control the heart rate. Objective - Vital Signs Vital signs: Vital Signs Temp 98.1 F 03/28/19 08:00 Pulse 100 03/28/19 11:44 Resp 20 03/28/19 11:33 BP 103/67 03/28/19 11:33 Pulse Ox 98 03/28/19 11:33 Intake & Output 03/27/19 03/28/19 03/28/19 18:59 06:59 18:59 Intake Total 482.5 596.818 927.281 Output Total 450 800 Balance 32.5 -203.182 927.281 Weight 100.1 kg 101.2 kg Intake: Intake, IV Titration 82.5 336.818 687.281 Amount Furosemide 100 mg In 82.5 178.167 Sodium Chloride 0.9% 90 ml @ 10 MG/HR 10 mls/hr IV .Q10H [facility] Rx#: [id number] Heparin Sod,Pork in 0.45% 158.651 187.281 NaCl 25,000 unit In 0.45 % NaCl 1 250ml.bag @ 18 UNITS/KG/HR 17.73 mls/hr IV .Q14H7M [facility] Rx#: [id number] Lactated Ringers 1,000 ml 500 @ 100 mls/hr IV .Q10H [facility] Rx#:[id number] Oral 400 260 240 Output: Urine 450 800 Other: Voiding Method Indwelling Catheter Indwelling Catheter # Voids 0 - Exam GENERAL EXAM: Alert, fairly comfortable in no apparent distress. On 15 L high flow nasal cannula. HEAD: Normocephalic. EYES: Normal reaction of pupils, equal size. NOSE: Clear with pink turbinates. THROAT: No erythema or exudates. NECK: No masses, no JVD. CHEST: No chest wall deformity. LUNGS: Equal air entry with bibasilar crackles left greater than right, diminished, dullness bilaterally. CVS: S1 and S2 normal with no audible murmur, regular rhythm. ABDOMEN: No hepatosplenomegaly, normal bowel sounds, no guarding or rigidity. SPINE: No scoliosis or deformity SKIN: No rashes CENTRAL NERVOUS SYSTEM: No focal deficits, tone is normal in all 4 extremities. EXTREMITIES: There is no peripheral edema. No clubbing, no cyanosis. Peripheral pulses are intact. - Labs CBC & Chem 7: 03/26/19 03:23 03/26/19 03:23 Labs: Abnormal Lab Results - Last 24 Hours (Table) 03/28/19 Range/Units 06:07 APTT 41.4 H (22.0-30.0) sec Microbiology - Last 24 Hours (Table) 03/23/19 12:30 Gram Stain - Final Thoracic Fluid Body Fluid Culture - Final Assessment and Plan Plan: Assessment and plan #1 typical atrial flutter with rapid ventricular response #2 congestive heart failure, LV function unknown #3 myeloma, stage IV, diagnosed in November #4 hypertension #5 hyperlipidemia #6 significant bilateral pleural effusions, status post thoracentesis #7 pulmonary embolism with DVT Plan Patient did go back into atrial flutter with rapid ventricular response this morning, we will increase the dose of beta pee to 50 mg daily. There is discussion going on regarding possible hospice care. DNP note has been reviewed, I agree with a documented findings and plan of care. Patient was seen and examined.
[2019-03-28 15:38] VITALS: BP 108/73; PULSE 63; RESP 18
[2019-03-28] MEDS ORDERED: LORazepam 2 MG/ML INJ IV PRN (15:48)
--- NOTE | 2019-03-28 15:51 | P.PN ---
Subjective Progress Note Date: 03/28/19 Principal diagnosis: Dyspnea with bilateral pleural effusions and pulmonary embolism/DVT with new atrial flutter This a very pleasant 64-year-old gentleman who follows with Dr. Mcneill is his primary care physician. His history of hypertension and hyperlipidemia, previous smoking history. He also has stage IV melanoma and follows with Dr. Alegria in the outpatient setting. He had treatment approximately 3 weeks ago. He presented to the emergency room yesterday with shortness of breath with atrial flutter with rapid ventricular response. He was initially given 6 mg of Benicar which slowed the rhythm down to identify the atrial flutter. He was surgically started on Cardizem and then seen and evaluated by radiology and he is currently on amiodarone at 0.5 mg/m. He is also on a heparin drip. Chest x- ray revealed bibasilar effusions. Echocardiogram reveals preserved left ventricular systolic function with ejection fraction 50-55%. There is moderate pulmonary hypertension. CT angiogram reveals a right lower lobe pulmonary embolism. There is bilateral pulmonary effusions and a small pericardial effusion. There are multiple chest, mediastinal and axillary masses present, suspect progression of his melanoma. Doppler of the lower extremities revealed bilateral DVT. Ultrasound of the chest reveals a 10 cm pocket on the left and a 7.4 cm pocket on the right. We will plan for a left-sided thoracentesis today. The patient is seen today 03/24/2019 in follow-up on the selective care unit. He is currently resting fairly comfortably in bed. Awake and alert. Reading easier today as compared to yesterday. Oxygen requirements have improved and he is on 5 L high flow nasal cannula. He is status post left-sided thoracentesis with 1.5 L of fairly clear yellow fluid removed. Cultures and cytology are pending. Protein 1.5. LDH 346. White count 4.5. Hemoglobin 11.1. The patient is seen today 03/25/2019 in follow-up on the selective care unit. He did undergo a left-sided Mediport placement earlier this morning. Earlier this afternoon the patient was having worsening shortness of breath cough and congestion. He was having low oxygen durations and then A team was called. Is given additional IV Lasix. Placed on BiPAP 12/500% FiO2 and he improved. His is at the bedside. Based on his overall poor prognosis and recent events he was made a DO NOT RESUSCITATE CODE STATUS. Chest x-ray reveals multiple opacities and increasing confluence retrocardiac space component of atelectasis suggestive of pulmonary edema. He was also suspected pericardial effusion. He is initiated on a Lasix drip at 10 mg per hour. The patient is seen today 03/26/2019 in follow-up on the selective care unit. He is more awake and alert today as compared to yesterday. Currently off the BiPAP and maintaining good O2 saturations on 15 L high flow nasal cannula. White count 5.9. Hemoglobin 11.7. Creatinine 0.93. He is maintained on DuoNeb inhalations. Continued on heparin drip. Remains on Lasix drip at 10 mg per hour. He is on amiodarone oral. Patient is seen today 03/27/2019 in follow-up on the selective care unit. He is currently resting in bed, awake and alert in mild respiratory distress. Somewhat weaker today as compared to yesterday. Currently on 8 L high flow nasal cannula and maintaining O2 saturations in the 90s. He is afebrile. Still somewhat tachycardic. Pleural fluid cultures pending. He is currently on DuoNeb inhalations remains on a heparin drip at 16 units per kilogram per hour. Lasix drip at 10 mg per hour. The patient is seen today 03/28/2019 in follow-up on the selective care unit. He is currently resting fairly comfortably in bed. Less alert today as compared to yesterday. He is maintaining O2 saturations in the 90s on 8 L high flow nasal cannula. Currently afebrile. Slightly tachycardic. Pathology on the pleural fluid showed no evidence of malignant cells. He is currently on oral amiodarone, heparin drip, Lasix drip at 10 mg per hour and bronchodilators. Objective - Vital Signs Vital signs: Vital Signs Temp 98.1 F 03/28/19 08:00 Pulse 63 03/28/19 15:37 Resp 18 03/28/19 15:37 BP 108/73 03/28/19 15:37 Pulse Ox 92 L 03/28/19 15:37 Intake & Output 03/27/19 03/28/19 03/28/19 18:59 06:59 18:59 Intake Total 482.5 596.818 927.281 Output Total 450 800 275 Balance 32.5 -203.182 652.281 Weight 100.1 kg 101.2 kg Intake: Intake, IV Titration 82.5 336.818 687.281 Amount Furosemide 100 mg In 82.5 178.167 Sodium Chloride 0.9% 90 ml @ 10 MG/HR 10 mls/hr IV .Q10H [facility] Rx#: [id number] Heparin Sod,Pork in 0.45% 158.651 187.281 NaCl 25,000 unit In 0.45 % NaCl 1 250ml.bag @ 18 UNITS/KG/HR 17.73 mls/hr IV .Q14H7M [facility] Rx#: [id number] Lactated Ringers 1,000 ml 500 @ 100 mls/hr IV .Q10H [facility] Rx#:[id number] Oral 400 260 240 Output: Urine 450 800 275 Other: Voiding Method Indwelling Catheter Indwelling Catheter # Voids 0 - Exam GENERAL EXAM: Weak 64-year-old gentleman. Arousable, fairly comfortable in mild respiratory distress. On 8 L high flow nasal cannula. HEAD: Normocephalic. EYES: Normal reaction of pupils, equal size. NOSE: Clear with pink turbinates. THROAT: No erythema or exudates. NECK: No masses, no JVD. CHEST: No chest wall deformity. LUNGS: Equal air entry with bibasilar crackles, diminished, dullness bilaterally. CVS: S1 and S2 normal with no audible murmur, regular rhythm. ABDOMEN: No hepatosplenomegaly, normal bowel sounds, no guarding or rigidity. SPINE: No scoliosis or deformity SKIN: No rashes CENTRAL NERVOUS SYSTEM: No focal deficits, tone is normal in all 4 extremities. EXTREMITIES: There is upper and lower extremity peripheral edema. No clubbing, no cyanosis. Peripheral pulses are intact. - Labs CBC & Chem 7: 03/26/19 03:23 03/26/19 03:23 Labs: Abnormal Lab Results - Last 24 Hours (Table) 03/28/19 Range/Units 06:07 APTT 41.4 H (22.0-30.0) sec Microbiology - Last 24 Hours (Table) 03/23/19 12:30 Gram Stain - Final Thoracic Fluid Body Fluid Culture - Final Assessment and Plan Assessment: Impression: #1 New onset atrial flutter with a rapid ventricular response, initiated on amiodarone, currently in sinus rhythm. Converted to oral amiodarone. On a heparin drip. #2 Bilateral pleural effusions. Status post left-sided thoracentesis on 03/23/2019 with 1.5 L of fairly clear yellow fluid removed. Pathology negative for malignancy. #3 Right lower lobe pulmonary embolism with bilateral lower extremity DVTs. On heparin drip. #4 Multiple chest, mediastinal and axillary masses. Progression of melanoma. #5 Acute hypoxic respiratory failure secondary to above. Currently on 8 L high flow nasal cannula. Has been on BiPAP support. #6 Recurrent metastatic melanoma, initially treated in 2011 with wide excision. Recurrence in December 2018 and treated with Opdivo. Last treatment approximately 3 weeks ago. #7 History of hypertension. #8 Hyperlipidemia. #9 History of previous tobacco dependence. Plan: The patient was seen and evaluated by Dr. Hassan. He remains quite weak and dyspneic. Currently on 8 L high flow nasal cannula. Remains on a Lasix drip. Remains on a heparin drip. He has been made a DO NOT RESUSCITATE/DO NOT INTUBATE CODE STATUS. Overall prognosis remains quite poor. A hospice consult has been placed. We'll continue to follow and make further recommendations based on his clinical status. I, the cosigning physician, performed a history & physical examination of the patient. Lungs sounds with bilateral crackles. Maintaining good O2 saturations in the 90s on 8 L high flow nasal cannula. I discussed the assessment and plan of care with my nurse practitioner, Yennifer Jimenez. I attest to the above note as dictated by her.
[2019-03-28] MEDS ORDERED: PANTOPRAZOLE 40 MG/10 ML VIAL IVP SCH (16:00)
--- NOTE | 2019-03-28 16:04 | P.DS ---
Providers Date of admission: 03/21/19 23:27 Expected date of discharge: 03/28/19 Attending physician: Derrek Alas Consults: 03/21/19 23:25 Consult Physician Routine Consulting Provider: Adeel Schaeffer Consult Reason/Comments: Atrial flutter, pleural effusions Do you want consulting provider notified?: Yes 03/22/19 00:39 Consult Physician Routine Consulting Provider: Sunny Alegria Consult Reason/Comments: Melanoma Do you want consulting provider notified?: Yes, Notify in am 03/22/19 10:52 Consult Physician Routine Consulting Provider: Boone Chase Consult Reason/Comments: Bilateral pleural effusions, melanoma Do you want consulting provider notified?: Yes 03/23/19 11:41 Consult Physician Routine Consulting Provider: Izabela Grey Consult Reason/Comments: Port a cath placement Do you want consulting provider notified?: Yes 03/25/19 13:39 Consult Physician Routine Consulting Provider: Jose Ruiz Consult Reason/Comments: IP Rehab Do you want consulting provider notified?: Yes 03/25/19 13:43 Consult Physician Routine Consulting Provider: Jose Ruiz Consult Reason/Comments: rehab consult Do you want consulting provider notified?: Yes 03/26/19 13:20 Consult Physician Routine Consulting Provider: Jose Ruiz Consult Reason/Comments: Reassess. Previous assessment was post procedure Do you want consulting provider notified?: Yes Primary care physician: Bob Mcneill Hospital Course: Final diagnoses Atrial flutter with RVR, new onset -Acute CHF exacerbation, EF currently unknown, echo pending -Right lower lobe PE -Bilateral lower extremity DVTs -Bilateral pleural effusions, greater on the left -Multiple chest, mediastinal and axillary masses, possibly metastasis, progression of melanoma -Right subclavian mass 6 cm -Bibasilar atelectasis, possible bronchopneumonia -Generalized weakness, gait dysfunction-now using a walker -Recently diagnosed recurrent melanoma stage IV, on immunotherapy -Hypertension -Hyperlipidemia -Hypoalbuminemia -History of nicotine dependence -Moderate pulmonary hypertension -Moderate tricuspid regurgitation -Moderate, generalized pericardial effusion per echo -Acute hypoxic respiratory failure, multifactorial secondary to all the above, currently on 15 L high flow nasal cannula -No code, no CPR, no intubation -[facility] hospice Hospital course:This is a 64-year-old gentleman recently diagnosed with stage IV melanoma of clavicle, right axilla on immunotherapy over the last 3 months, hypertension, hyperlipidemia presented to the ER with complaints of worsening weakness accompanied by increasing shortness of breath and complaints of irregular heartbeat. About a week ago was prescribed a walker. Also complains of right swollen hand weeping 1 week with fluctuating spasms-denies trauma and bilateral lower extremity edema. Reports weakness initially started after beginning on immunotherapy. Denies chest pain, palpitations. Denies lightheadedness, dizziness or syncope . No focal deficits. Denies fever or chills .EKG reported atrial flutter with RVR, received adenosine, digoxin with nonspecific ST configuration and placed on IV Cardizem and heparin drips. Chest x-ray reporting by basilar atelectasis, possible bronchopneumonia, prominent pleural effusions bilaterally, greater on the left. BNP 86812. Tachypneic, maintaining O2 sats in the high 90s on 2 L nasal cannula. Afebrile, normal WBC. Cardiology and oncology consulted. 03/23/2019 currently maintained on amiodarone and heparin drips. evaluated by both pulmonary and oncology with recommendations noted and appreciated. Chest x-ray reported by bibasilar pleural effusions. Chest ultrasound reporting 10 cm pocket on the left and some 0.4 cm pocket on the right, left-sided thoracentesis pending. Echo reporting preserved LV function, EF to 55%, moderate pulmonary hypertension, moderate tricuspid regurgitation, moderate, generalized pericardial effusion. CT reporting right lower lobe pulmonary embolism, bilateral pulmonary effusions and small pericardial effusion, enlarged thyroid. Multiple chest, mediastinal and axillary masses present previously -suspected progression of melanoma. Doppler of the lower extremities reporting bilateral DVT. Doppler of upper extremities reporting negative for DVT of right and left arm, cephalic veins not seen secondary to the edema, mass seen near right subcl edu 6 cm .Requiring 15 L high flow nasal cannula to maintain O2 sats in the 90s. Continues on Lasix IV push, Creatinine increased to 1.36. K 3.6. Complains of left ear pain; examined by Dr. Alas with otoscope reporting fluid behind eardrum-patient currently on Claritin. 03/24/2019 breathing easier this morning. Diuresing well on Lasix IV push. Status post left-sided thoracentesis with 1.5 L drained-clear yellow. Cytology/cultures pending. maintaining O2 sats in the high 90s on 5 L nasal cannula. Currently declining Metaport. Discuss further with family and patient at bedside, rationale, need. Telemetry sinus rhythm on Toprol. Creatinine 1.12. Afebrile, normal WBC. 03/25/2019 scheduled for port placement this morning.anticoagulation on hold .VSS. 96% on 2 L nasal cannula. Renal function improving, creatinine 0.9. Afebrile, normal WBC. Telemetry sinus rhythm. Diuresing well on Lasix IV push with 24-hour I&O reflecting a decrease in weight . Maintained on Lasix and heparin drips. Less alert today, weak, dyspneic. Returned into atrial flutter with fast ventricular rate this morning, beta pee increased as per cardiology. Current heart rate 120. Pleural cytology reporting no malignant cells.High flow nasal cannula weaned down to 6 L. Prognosis poor. Oncology had discussed with family this morning, hospice. Discussed options further with family and they wish to pursue hospice. Hospice consult initiated. Patient will be converted to [facility] hospice tonight. - Exam VITAL SIGNS: As above GENERAL: Lying in bed, weak, less alert, periodic confusion. HEENT: Normocephalic, Conjunctivae normal. Pupils equal. Oral mucosa dry NECK: Supple, No JVD. CARDIOVASCULAR: S1, S2, regular, positive systolic murmur RESPIRATION: Breath sounds diminished, dullness in the bases, scattered rhonchi, bibasilar crackles ABDOMEN: Soft, nontender . Distended. No guarding. no masses palpable. Bowel sounds heard. EXTREMITIES: Bilateral upper and lower extremity edema, NERVOUS SYSTEM: Currently unable to evaluate, patient confused. Skin: No rash, right clavicle/right axilla palpable mass.Right hand dressing clean dry and intact The impression and plan of care has been dictated as directed. : I performed a history and examination of this patient, discussed the same with the dictator. I agree with the dictator's note ,documented as a scribe. Any additional findings or plans will be noted. Time taken: 35 minutes Patient Condition at Discharge: Poor Plan - Discharge Summary New Discharge Prescriptions: No Action Fenofibrate [Lofibra] 160 mg PO DAILY ALPRAZolam [Xanax] 0.5 mg PO BID PRN PRN Reason: Anxiety Furosemide [Lasix] 20 mg PO DAILY Discharge Medication List Fenofibrate [Lofibra] 160 mg PO DAILY 12/20/18 [History] ALPRAZolam [Xanax] 0.5 mg PO BID PRN 03/21/19 [History] Furosemide [Lasix] 20 mg PO DAILY 03/21/19 [History] Follow up Appointment(s)/Referral(s): Izabela Grey DO [STAFF PHYSICIAN] - 2 Weeks None,Stated [REFERRING] - 1-2 days
[2019-03-28] MEDS: MORPHINE SULFATE 4 MG/ML SYRINGE IVP PRN ×2 (16:26→18:51)
--- NOTE | 2019-03-28 16:35 | P.PN ---
Subjective Progress Note Date: 03/28/19 Principal diagnosis: Atrial flutter, anorexia, progressive weakness, Metastatic melanoma Had a long discussion about patient condition today. When I saw the patient he was intermittently lucid, when asked if he was experiencing any pain he said yes, his monoxide is tender and he was wanting to be positioned, patient was also requesting things to drink. He had no other complaints Objective - Vital Signs Vital signs: Vital Signs Temp 98.1 F 03/28/19 08:00 Pulse 63 03/28/19 15:37 Resp 18 03/28/19 15:37 BP 108/73 03/28/19 15:37 Pulse Ox 92 L 03/28/19 15:37 Intake & Output 03/27/19 03/28/19 03/28/19 18:59 06:59 18:59 Intake Total 482.5 596.818 927.281 Output Total 450 800 275 Balance 32.5 -203.182 652.281 Weight 100.1 kg 101.2 kg Intake: Intake, IV Titration 82.5 336.818 687.281 Amount Furosemide 100 mg In 82.5 178.167 Sodium Chloride 0.9% 90 ml @ 10 MG/HR 10 mls/hr IV .Q10H [facility] Rx#: [id number] Heparin Sod,Pork in 0.45% 158.651 187.281 NaCl 25,000 unit In 0.45 % NaCl 1 250ml.bag @ 18 UNITS/KG/HR 17.73 mls/hr IV .Q14H7M [facility] Rx#: [id number] Lactated Ringers 1,000 ml 500 @ 100 mls/hr IV .Q10H [facility] Rx#:[id number] Oral 400 260 240 Output: Urine 450 800 275 Other: Voiding Method Indwelling Catheter Indwelling Catheter # Voids 0 - Exam Thin, frail, extraordinarily ill 64-year-old male laying in bed, he is so weak that he is unable to close his mouth other than for a few moments. Patient has masseter muscle wasting, respirations are weak, cough is very weak, patient does have visible masses on the left upper chest, skin lesions. He is lucid for periods of time less than 15-20 seconds he then drifts off to sleep. - Labs CBC & Chem 7: 03/26/19 03:23 03/26/19 03:23 Labs: Abnormal Lab Results - Last 24 Hours (Table) 03/28/19 Range/Units 06:07 APTT 41.4 H (22.0-30.0) sec Microbiology - Last 24 Hours (Table) 03/23/19 12:30 Gram Stain - Final Thoracic Fluid Body Fluid Culture - Final Assessment and Plan (1) Melanoma Current Visit: Yes Status: Acute Priority: High Code(s): C43.9 - MALIGNANT MELANOMA OF SKIN, UNSPECIFIED SNOMED Code(s): 137744830 Plan: The patient's and myself had a very long discussion about pt current condition. Patient's performance status is now a 4, I do anticipate impending from his condition. We had a very realistic discussion about goals and discussed which goals were obtainable and those which were not. Patient's wants nothing more than for her to be comfortable and not suffer. She had multiple questions about what would be done, what care would be discontinued and what would be continued. I assured her that the goal of care is comfort, dignity and alleviate suffering- what ever that may require. She stated she wanted to talk to her and her children before moving forward with any decisions. I discussed the same with nursing and clinical case manager I do see from Internal Medicine's note that the patient and his have accepted hospice and will be transitioning to the same. Time with Patient: Greater than 30 (Greater than 35 minutes spent, greater than 50% of time counseling and coordinating care)
[2019-03-28] MEDS ORDERED: METOPROLOL TARTRATE 5 MG/5 ML VIAL IVP SCH (21:00)
== END 2019-03-28 19:14 | disposition hospice, inpatient (51) | DRG 981 ==
LOC: EC 19:23 → 3SCARD 23:27
PROVIDERS: ADMIT Family Medicine; ATTEND Family Medicine
PROC: 5A09457 Assistance with Respiratory Ventilation, 24-96 Consecutive Hours, Continuous Positive Airway Pressure (ICD-10-PCS; 2019-03-23)
PROC: 0W9B3ZX Drainage of Left Pleural Cavity, Percutaneous Approach, Diagnostic (ICD-10-PCS; 2019-03-23)
PROC: 05HN33Z Insertion of Infusion Device into Left Internal Jugular Vein, Percutaneous Approach (ICD-10-PCS; 2019-03-25)
PROC: 0JH60WZ Insertion of Totally Implantable Vascular Access Device into Chest Subcutaneous Tissue and Fascia, Open Approach (ICD-10-PCS; principal; 2019-03-25 12:10)
DX: I48.3 Typical atrial flutter (principal); I26.99 Other pulmonary embolism without acute cor pulmonale; J96.01 Acute respiratory failure with hypoxia; I50.33 Acute on chronic diastolic (congestive) heart failure; J18.0 Bronchopneumonia, unspecified organism; N17.9 Acute kidney failure, unspecified; I82.421 Acute embolism and thrombosis of right iliac vein; I82.431 Acute embolism and thrombosis of right popliteal vein; I82.412 Acute embolism and thrombosis of left femoral vein; J91.8 Pleural effusion in other conditions classified elsewhere; C78.02 Secondary malignant neoplasm of left lung; C77.3 Secondary and unspecified malignant neoplasm of axilla and upper limb lymph nodes; C78.1 Secondary malignant neoplasm of mediastinum; J98.11 Atelectasis; I31.3 Pericardial effusion (noninflammatory); I11.0 Hypertensive heart disease with heart failure; I47.1 Supraventricular tachycardia; Z66 Do not resuscitate; Z51.5 Encounter for palliative care; E88.09 Other disorders of plasma-protein metabolism, not elsewhere classified; I27.20 Pulmonary hypertension, unspecified; I07.1 Rheumatic tricuspid insufficiency; I89.0 Lymphedema, not elsewhere classified; D64.9 Anemia, unspecified; R26.9 Unspecified abnormalities of gait and mobility; H92.02 Otalgia, left ear; E78.5 Hyperlipidemia, unspecified; Z79.899 Other long term (current) drug therapy; Z87.891 Personal history of nicotine dependence; Z98.890 Other specified postprocedural states; Z92.22 Personal history of monoclonal drug therapy; Z85.820 Personal history of malignant melanoma of skin; Z80.8 Family history of malignant neoplasm of other organs or systems; Z82.49 Family history of ischemic heart disease and other diseases of the circulatory system
CPT/HCPCS: 36415; 36600; 71045; 71046; 71275; 76604; 77001; 80048; 80053; 82550; 82805; 82945; 83615; 83735; 83880; 84157; 84443; 84484; 85025; 85610; 85730; 87070; 87102; 87116; 87205; 87206; 87252; 87496; 87498; 87502; 87529; 87634; 87798; 88108; 88305; 88341; 88342; 89050; 93005; 93306; 93970; 94640; 94660; 94760; 96365; 96366; 96368; 96374; 96375; 96376; 99291

== ENCOUNTER 2019-03-28 18:48 | Inpatient (IN) | payer BC, MEDICAID ==
[2019-03-28] MEDS ORDERED: ACETAMINOPHEN SUPPOSITORY 650 MG SUPP RECTAL PRN (19:24)
[2019-03-28] MEDS ORDERED: ATROPINE OPHTH SOLN 1% 5ML BTL SUBLINGUAL PRN (19:24)
[2019-03-28] MEDS ORDERED: LORazepam 2 MG/ML INJ IV PRN (19:24)
[2019-03-28] MEDS ORDERED: MORPHINE SULFATE 2 MG/ML SYRINGE IV PRN (19:24)
[2019-03-28] MEDS ORDERED: ONDANSETRON 4 MG/2 ML VIAL IVP PRN (19:24)
[2019-03-28] MEDS ORDERED: MORPHINE SULFATE 100 MG in SODIUM CHLORIDE 0.9% 90 ML IV SCH (19:30)
--- NOTE | 2019-04-23 13:46 | P.DS ---
Providers Date of admission: 03/28/19 19:19 Expected date of discharge: 03/28/19 Attending physician: Derrek Alas Primary care physician: Bob Mcneill - Discharge Diagnosis(es) (1) Terminal care Status: Acute (2) Atrial flutter with rapid ventricular response Status: Acute (3) CHF (congestive heart failure) Status: Acute (4) Edema Status: Acute (5) Melanoma Status: Acute Priority: High (6) Pleural cavity effusion Status: Acute Hospital Course: pateint was place in in patient hospice for stage 4 melanoma with multiple mets. He passed quitely with family at bedside. Plan - Discharge Summary New Discharge Prescriptions: No Action ALPRAZolam [Xanax] 0.5 mg PO BID PRN PRN Reason: Anxiety Furosemide [Lasix] 20 mg PO DAILY Ipratropium-Albuterol Nebulize [Duoneb 0.5 mg-3 mg/3 ml Soln] 3 ml INHALATION RT-QID ampul.neb Lidocaine 5% Patch [Lidoderm 5% Patch] 1 patch TRANSDERM HS Ipratropium-Albuterol Nebulize [Duoneb 0.5 mg-3 mg/3 ml Soln] 3 ml INHALATION RT-Q2H PRN PRN Reason: Shortness Of Breath Or Wheezing Discharge Medication List ALPRAZolam [Xanax] 0.5 mg PO BID PRN 03/21/19 [History] Furosemide [Lasix] 20 mg PO DAILY 03/21/19 [History] Ipratropium-Albuterol Nebulize [Duoneb 0.5 mg-3 mg/3 ml Soln] 3 ml INHALATION RT-Q2H PRN 03/28/19 [History] Ipratropium-Albuterol Nebulize [Duoneb 0.5 mg-3 mg/3 ml Soln] 3 ml INHALATION RT-QID ampul.neb 03/28/19 [Rx] Lidocaine 5% Patch [Lidoderm 5% Patch] 1 patch TRANSDERM HS 03/28/19 [History] Discharge Disposition: - Preliminary Cause of Preliminary Cause of : melanoma
== END 2019-03-28 23:00 | disposition expired | DRG 951 ==
LOC: 3SCARD 19:19
PROVIDERS: ADMIT Family Medicine; ATTEND Family Medicine
DX: Z51.5 Encounter for palliative care (principal); C41.3 Malignant neoplasm of ribs, sternum and clavicle; C77.3 Secondary and unspecified malignant neoplasm of axilla and upper limb lymph nodes; Z92.21 Personal history of antineoplastic chemotherapy; I10 Essential (primary) hypertension; E78.5 Hyperlipidemia, unspecified; Z80.8 Family history of malignant neoplasm of other organs or systems